=== PATIENT | male | born 1965 | race African-American/Black ===

== ENCOUNTER 2016-11-07 21:26 | Inpatient (IN) ==
--- NOTE | 2016-11-07 23:30 | Emergency Department Note ---
Disposition Clinical Impression: Internal jugular (IJ) vein thromboembolism, acute Qualifiers: Laterality: right Qualified Code(s): I82.C11 - Acute embolism and thrombosis of right internal jugular vein Disposition: Admitted As Inpatient Condition: Fair Referrals: Ivana Weston CNP [Primary Care Provider] - Forms: Work/School Release, ED Satisfaction Letter General Adult HPI - General Chief complaint: ED General Medical Stated complaint: problem with port Time Seen by Provider: 11/07/16 22:49 Source: patient Limitations: no limitations Nursing Notes Reviewed: Yes Vital Signs Reviewed: Yes - History of Present Illness HPI Narrative: 51-year-old male with lung cancer. He is currently on chemotherapy. He had a port placed on October 08. He has not had an issue with the port until today. He was sitting in his chair and he developed right-sided neck pain. Other medical problems include hypertension,, diabetes. He denies a fever, chest pain , shortness of breath. Radiation: non-radiation Pain Severity: severe Pain Scale: 10 Consistency: constant Improves with: nothing Worsens with: movement Associated symptoms: Reports: denies other symptoms Treatments Prior to Arrival: none - Related Data Home Medications Medication Instructions Recorded Confirmed Amlodipine [Norvasc] 5 mg PO DAILY 09/17/16 09/23/16 FLUoxetine HCl [PROzac] 40 mg PO DAILY 09/17/16 11/06/16 Previous Rx's Medication Instructions Recorded Tramadol HCl [Ultram] 50 mg PO TID PRN #12 tab 09/20/16 Dexamethasone [Decadron] 4 mg PO AD #30 tab 09/23/16 Lidocaine/Prilocaine CREAM [Emla] 5 gm TP AD #1 tube 09/23/16 Loratadine [Claritin] 10 mg PO AD #30 capsule 09/23/16 Magic Mouthwash 10 ml PO TID PRN #260 ml 09/23/16 Omeprazole [PriLOSEC] 20 mg PO DAILY #90 capsule 09/23/16 Ondansetron [Zofran] 8 mg PO Q8HR PRN #90 tablet 09/23/16 Prochlorperazine Maleate 10 mg PO Q6HR PRN #90 tablet 09/23/16 [Compazine] HYDROcodone/Acet 10/325 mg [[place] 1 tab PO Q6HR PRN #48 tab 10/09/16 10-325 mg] Varenicline Tartrate [Chantix] 1 each PO AD #60 tab.ds.pk 10/16/16 Folic Acid 1 mg PO DAILY #90 tablet 10/17/16 LORazepam [Ativan] 1 mg PO Q6H PRN #60 tablet 10/28/16 Megestrol Acetate [Megace] 10 ml PO DAILY #300 mls 11/06/16 Allergies Allergy/AdvReac Type Severity Reaction Status Date / Time benazepril Allergy Swelling Verified 09/23/16 17:32 of Lip/Tongue/Throat meloxicam Allergy Swelling Verified 09/23/16 17:32 of Lip/Tongue/Throat All systems ED: reviewed and negative except as stated. Constitutional: Denies: fever Eyes: Denies: vision change ENT ED: Reports: throat pain Cardiovascular: Denies: chest pain Respiratory: Denies: cough Gastrointestinal: Denies: abdominal pain, nausea, vomiting Genitourinary: Denies: dysuria Musculoskeletal: Denies: back pain Integumentary: Denies: rash Neurological: Denies: headache Past Medical History - Past Medical History Medical history: Reports: cancer, hypertension, other Surgical history: Reports: other Psychiatric history: Reports: no psych history - Social History Smoking Status: Current every day smoker Smokeless Tobacco Status: No Alcohol use: Reports: occasionally Drug use: Reports: none Physical Exam - General Limitations: no limitations General appearance: alert, in no apparent distress - Head Head exam: atraumatic - Eye Eye exam: Present: normal appearance, PERRL, EOMI - ENT ENT exam: normal exam - Neck Neck exam: Present: other (pain on palpation of the catheter from the port. No erythema or edema.) - Respiratory Respiratory exam: Present: normal lung sounds bilaterally. Absent: respiratory distress - Cardiovascular Cardiovascular exam: Present: regular rate, normal rhythm - Abdominal Exam Abdominal exam: Present: soft, Non-Tender - Extremities Exam Extremities exam: Present: normal inspection - Neurological Exam Neurological exam: Present: alert, oriented X3 - Psychiatric Psychiatric exam: Present: normal affect, normal mood - Skin Skin exam: Present: warm, dry Course Course Narrative: He has pain on palpation of the port. There is no signs of cellulitis or infection on the surface. Will obtain a CTA of the neck and get basic lab work and blood cultures.. - Reevaluation(s) Reevaluation #1: Acute thrombophlebitis of IJV on the right. STarting heparin and calling for admission. Reevaluation #2: accepted by shreya Vital Signs Temperature 97.3 F L 11/07/16 21:40 Pulse Rate 93 11/07/16 21:40 Respiratory Rate 18 11/07/16 21:40 Blood Pressure 101/61 11/07/16 21:40 O2 Sat by Pulse Oximetry 95 11/07/16 21:40 Temperature 97.3 F L 11/07/16 21:40 Pulse Rate 91 11/08/16 00:50 Respiratory Rate 18 11/08/16 00:50 Blood Pressure 153/86 11/08/16 00:50 O2 Sat by Pulse Oximetry 93 L 11/08/16 00:50 Oxygen Delivery Oxygen Delivery Room Air Medical Decision Making - Lab Data Lab results reviewed: Yes I reviewed the patient's lab results. Result diagrams: 11/07/16 23:32 11/07/16 23:32 Lab Results 11/07/16 11/07/16 11/07/16 Range/Units 23:32 23:32 23:32 WBC 7.5 (4.3-11.1) K/mcL RBC 4.12 L (4.19-5.50) M/mcL Hgb 11.5 L (12.9-16.9) g/dL Hct 31.7 L (37.5-50.1) % MCV 76.9 L (83.0-100.0) fL MCH 27.9 L (28.0-33.3) pg MCHC 36.3 H (31.6-35.5) g/dL RDW 15.6 H (11.5-14.5) % Plt Count 239 (140-400) K/mcL MPV 10.1 (9.4-12.4) fL Immature Gran % 0.5 (0-4) % Seg Neutrophils % 65.5 % Lymphocytes % 18.6 % Monocytes % 11.8 % Eosinophils % 3.2 % Basophils % 0.4 % Neutrophils # 4.9 (1.6-8.9) K/mcL Lymphocytes # 1.4 (0.6-4.6) K/mcL Monocytes # 0.9 (0.0-1.3) K/mcL Eosinophils # 0.2 (0.0-0.6) K/mcL Basophils # 0.0 (0.0-0.2) K/mcL PT 12.2 H (9.4-12.1) Seconds INR 1.1 APTT 27.6 (26.0-36.0) Seconds Sodium 140 (136-145) mEq/L Potassium 3.6 (3.5-4.5) mEq/L Chloride 108 (98-109) mEq/L Carbon Dioxide 20 (19-29) mEq/L BUN 13 (8-26) mg/dL Creatinine 0.65 L (0.72-1.25) mg/dL Est GFR ( Amer) > 60 (> 60) Est GFR (Non-Af Amer) > 60 (> 60) BUN/Creatinine Ratio 20 (6-26) Glucose 110 H (70-99) mg/dL Calculated Osmolality 291 (280-300) Calcium 8.4 L (8.6-10.8) mg/dL - Radiology Data Radiology results reviewed: Yes I reviewed the patient's radiology results. Critical Care Time Critical Care Time: Yes Total Critical Care Time: 40 Attestation: Critical care performed: Time is exclusive of separately billable procedures. Time includes: direct patient care, patient reassessment, coordination of patient care, interpretation of data (laboratory data, radiology data, and respiratory data), review of patient's medical records, medical consultation and documentation of patient care. Procedures included in critical care time: Procedures excluded from critical care time: Attestation Statement - Attestation Attestation: I, Eugene Walker MD, personally performed a history and physical exam of the patient and discussed their management with the resident. I reviewed the resident's note and agree with the documented findings, medical decision making , and plan of care. Patient is a 51-year-old male with a history of lung cancer who had an Infuse-a- Port placed in the right internal jugular vein about one month ago. He had chemotherapy through the port to half weeks ago. He has had no problems until yesterday when he developed pain and soreness over the right side of the neck with some redness and mild swelling. No cough or chest pain or increased shortness of breath. No fever. On examination patient is a well-developed well-nourished male in no acute distress. He is alert and oriented 3. There is no cyanosis or diaphoresis. Breath sounds are clear and equal bilaterally. Heart regular rate and rhythm. There is tenderness to palpation over the right anterior neck with some mild erythema and minimal swelling. Labs reviewed. Soft tissue CT of the neck with contrast shows acute thrombophlebitis of the right internal jugular vein. Heparin initiated. The hospitalist, Dr. Ghosh, was consulted and accepted admission of the patient.
[2016-11-07 23:42] LABS: Basophils % 0.4 %; Eosinophils # 0.2 K/mcL (0.0-0.6); Eosinophils % 3.2 %; Hematocrit 31.7 % (37.5-50.1); Hemoglobin 11.5 g/dL (12.9-16.9); Immature Granulocytes % 0.5 % (0-4); Lymphocytes # 1.4 K/mcL (0.6-4.6); Lymphocytes % 18.6 %; Mean Corpuscular HGB Conc 36.3 g/dL (31.6-35.5); Mean Corpuscular Hemoglobin 27.9 pg (28.0-33.3); Mean Corpuscular Volume 76.9 fL (83.0-100.0); Mean Platelet Volume 10.1 fL (9.4-12.4); Monocytes # 0.9 K/mcL (0.0-1.3); Monocytes % 11.8 %; Neutrophils # 4.9 K/mcL (1.6-8.9); Platelet Count 239 K/mcL (140-400); Red Blood Count 4.12 M/mcL (4.19-5.50); Red Cell Distribution Width 15.6 % (11.5-14.5); Segmented Neutrophils % 65.5 %
[2016-11-07 23:50] LABS: INR 1.1; Prothrombin Time 12.2 Seconds (9.4-12.1)
[2016-11-07 23:52] LABS: Activated Partial Thrombo Time 27.6 Seconds (26.0-36.0)
[2016-11-07 23:59] LABS: BUN/Creatinine Ratio 20 (6-26); Blood Urea Nitrogen 13 mg/dL (8-26); Calcium 8.4 mg/dL (8.6-10.8); Carbon Dioxide 20 mEq/L (19-29); Chloride 108 mEq/L (98-109); Glucose 110 mg/dL (70-99); Osmolality,Calculated 291 (280-300); Potassium 3.6 mEq/L (3.5-4.5); Sodium 140 mEq/L (136-145); eGFR For African Americans > 60 (> 60); eGFR For Non-African Americans > 60 (> 60)
[2016-11-08] MEDS ORDERED: *HR* Heparin 5,000 UNIT/ML VIAL IVP ONE (01:22)
[2016-11-08] MEDS ORDERED: *HR* Heparin 5,000 UNIT/ML VIAL IVP PRN (01:22)
[2016-11-08] MEDS ORDERED: Naloxone 0.4 MG/ML INJ IVP PRN (01:47)
[2016-11-08] MEDS ORDERED: Acetaminophen 325 MG TABLET PO PRN (01:47)
[2016-11-08] MEDS ORDERED: *HR* Promethazine 25 MG/ML VIAL IVP PRN (01:47)
[2016-11-08] MEDS ORDERED: *HR* HYDROmorphone (PF) 1 MG/ML SYRINGE IVP PRN (01:47)
[2016-11-08] MEDS: Heparin 25,000 UNIT/500 ML D5W 25,000 UNIT/500 ML MLS IVC SCH (01:51)
[2016-11-08] MEDS ORDERED: *HR* LORazepam 1 MG TABLET PO PRN ×2 (01:54→14:20)
[2016-11-08 02:28] LABS: VBG HCO3 26.5 mEq/L (21-27); VBG PH 7.43 pH Units (7.32-7.42)
[2016-11-08 02:31] LABS: Ionized Calcium 1.16 mmol/L (1.15-1.35)
[2016-11-08 02:36] LABS: Magnesium 1.8 mg/dL (1.6-2.6); Phosphorous 3.7 mg/dL (2.3-4.7)
[2016-11-08 02:40] LABS: Albumin 3.3 g/dL (3.5-5.0); Albumin/Globulin Ratio 1.1 (1.1-2.2); Bilirubin,Direct 0.1 mg/dL (0.0-0.5); Bilirubin,Indirect 0.3 mg/dL (0.0-1.2); Bilirubin,Total 0.4 mg/dL (0.2-1.2); Chol/HDL Ratio 4.3 (0-4.9); Globulin 2.9 g/dL (2.4-3.5); Total Protein 6.2 g/dL (6.0-8.3)
--- NOTE | 2016-11-08 02:42 | Internal Med History&Physical ---
Date of Encounter: 11/08/16 Time of Encounter: 02:00 Assessment and Plan (1) Internal jugular (IJ) vein thromboembolism, acute Current visit: Yes Status: Acute . Qualifiers: Laterality: right Qualified Code(s): I82.C11 - Acute embolism and thrombosis of right internal jugular vein (2) Adenocarcinoma of lung Current visit: Yes Status: Chronic . Qualifiers: Laterality: left Qualified Code(s): C34.92 - Malignant neoplasm of unspecified part of left bronchus or lung (3) Malignant pleural effusion Current visit: Yes Status: Chronic . (4) Acute chest wall pain Current visit: Yes Status: Acute . (5) Chest pain, rule out acute myocardial infarction Current visit: Yes Status: Acute . (6) Chest pain with low risk of acute coronary syndrome Current visit: Yes Status: Acute . (7) Acute neck pain Current visit: Yes Status: Acute . (8) Nicotine dependence with nicotine-induced disorder Current visit: Yes Status: Chronic . Qualifiers: Nicotine product type: cigarettes Qualified Code(s): F17.219 - Nicotine dependence, cigarettes, with unspecified nicotine-induced disorders (9) Hypertension Current visit: Yes Status: Chronic . Qualifiers: Hypertension type: essential hypertension Qualified Code(s): I10 - Essential (primary) hypertension (10) Coagulopathy Current visit: Yes Status: Acute . (11) COPD (chronic obstructive pulmonary disease) with emphysema Current visit: Yes Status: Chronic . Qualifiers: Emphysema type: unspecified Qualified Code(s): J43.9 - Emphysema, unspecified (12) Acute and chronic respiratory failure with hypoxia Current visit: Yes Status: Acute . (13) Malignant cachexia Current visit: Yes Status: Chronic . (14) Cancer-related pain Current visit: Yes Status: Chronic . Internal Medicine - H&P: HPI Chief complaint: Acute neck/chest pain Admitted From: Emergency Dept Plans for Post Hospital Care: Home History of present illness: Mr. Moon is a 51 year old male with history significant for metastatic lung adenoCA+ malignant pleural effusion , combined (negative) chemotherapy and biologic therapy, cancer-related pain, cachexia of malignancy, hypertension, osteoarthritis, osteopenia, depression -anxiety, GERD, COPD-emphysema, nicotine dependency/abuse (~45 pk-yrs) The patient was visited and interviewed and examined. The patient is admitted to [facility] via the emergency department when he presents with reports of acute onset of severe right-sided neck and chest pain occurring at rest. Symptoms seemed to relate to placement of internal jugular vein central line port. He is currently on chemotherapy for advanced adenocarcinoma of the lung with malignant pleural effusion. Placement of [id number] only one month prior to this presentation. Patient last received chemotherapy recently. Patient had no trouble with his port to the day prior to presentation when he developed acute neck pain and soreness and soreness over the right side of the neck with associated erythema and edema. He denied any associated cough respiratory there is significant. Denied exertional chest pain. Denied any overt fevers chills or sweats.. Placement of the central line occurred approximately one week prior to this presentation (10/08/16). Symptoms occurred while seated; at rest. Pain when present is rated as severe at 10/10 intensity. Nothing seemed to improve symptoms or complaints when present. Symptoms seem to worsen with movement over repetitive activity. Denied fevers chills sweats nausea vomiting patient denies that chest pain upper or lower respiratory symptoms abdominal pain nausea vomiting dysuria frequency hematuria. Acknowledged results of throat discomfort and right neck and upper chest discomfort is primary concerns. Findings in the ED: Temperature 97.3 pulse 90-93 respirations 18 BP 100-153/60-O2 saturation 93-95% on room air. WBC 7.5 hemoglobin 11.5 hematocrit 31.7. MCV 76.9 MCH 27.9. RDW 15.6. Platelets 239,000. Differential normal. PT 12.2 INR 1.1 PTT 27.6. Metabolic panel normal BUN 13 creatinine 0.65 glucose [address] abdomen/pelvis/chest with contrast including right-sided MediPort with tip projecting into the region of the distal SVC. The sentinel nodes noted. No pericardial effusion. Mild underlying emphysema. No obstructing endobronchial lesions seen. Large nodular density seen peripherally to the left lung base 1.7 x 1.5 cm additional nodules along fissure unchanged measuring 7 mm x 6 mm. Smaller nodular density seen within the inferior lingula. Fluid thickening on the left persists with pronounced. Right adrenal gland normal left adrenal gland normal. No hydronephrosis. Spleen normal. No intrahepatic ductal dilatation OR. Hepatic fluid. Gallbladder normal. No pancreatic calcifications. No peripancreatic fluid. Hypodense nodules within the left kidney too small to characterize. Atherosclerotic calcification within the abdominal aorta with no aneurysm and no retroperitoneal adenopathy. Large bowel normal. Mild wall thickening ascending colon and appendix normal. Spurring seen in the spine benign. CT, soft tissue neck with contrast showed acute thrombophlebitis of the mid and distal right internal jugular vein. Spanning a length of approximately 10 cm with surrounding inflammatory change and edema. A metallic foreign body adjacent to the right maynor- mandible noted. Preliminary impressions suggest acute occlusive thrombophlebitis involving right internal jugular vein in a patient with known associated metastatic lung adenocarcinoma and malignant left pleural effusion. Coagulopathy in cancer presenting as a paraneoplastic process is suspected. Given patient's presenting chief complaint ,clinical findings and comorbidities he is at high risk for further acute clinical decline and morbidity. The treatments will proceed comprehensively. Cumulative laboratory and radiographic data base was reviewed, considered and discussed. Pertinent ancillary medical records including ECW and PCI documentation, when available was reviewed and considered. Given the patient's presenting concerns, past medical history, clinical findings and symptoms, he is admitted at this time will undergo further evaluation and disposition. Orders were written as per the computerized physician order management specialist system.......................................................................... .................... Consultative opinions will be sought as clinical circumstances justify. Initial consultation has been requested vascular surgery. Pain management needs will be addressed. Laboratory and radiographic data base will be updated as appropriate. Studies include: Cultures of blood, coagulation profile, d-dimer, cardiac injury panel, BNP, metabolic and hematologic panel, magnesium, phosphorus, ionized calcium, thyroid panel, lipid profile, A1,c, C-peptide, CRP, sedimentation rate, blood gas, lactic acid, U/A, serologies, etc. Precautions: Aspiration, fall, delirium protocol/surveillance initiated. Telemetry with continuous hemodynamic monitoring and pulse oximetry initiated. Empiric antibody coverage: Intravenous Rocephin and Vancomycin pending culture data. Special studies: CT chest/abdoden/pelvis w/contrast, chest x-ray, telemetry, EKG. Pulmonary toilet: Incentive spirometry, aerosol bronchodilator, mucolytic, antitussive, supplemental oxygen. Corticosteroid therapy. CPAP/BiPAP supplemental oxygen delivery therapy. Aerosol Mucomyst therapy. Fluid and electrolyte repletion efforts will proceed. Careful attention to fluid balance and renal recovery will be emphasized. Avoidance of nephrotoxic exposure and adverse drug drug interaction in the setting of impaired renal function will be monitored closely. Correction of metabolic and acid-base deficits will be emphasized. Acute coronary syndrome protocol/surveillance initiated. Intravenous heparin drip therapy initiated. DVT and PUD prophylaxis initiated: PPI therapy, intermittent pneumatic cuffs. Early ambulation will be encouraged. Immunization updates recommended. Influenza and pneumococcal vaccinations as part of ongoing preventative healthcare recommendations strongly recommended. Smoking cessation counseling briefly addressed. Patient declares himself a former(heavy) nonsmoker. Advanced care directive discussion briefly addressed. Patient does not declare any healthcare restrictions at this time. Cardiovascular risk appraisal and cardiovascular risk reduction efforts will be emphasized. Physical and occupational therapy may be consulted to assess patient's functional capacity and progress mobility as circumstances permit. Outpatient medication schedules will be reviewed, confirmed and facilitated as appropriate. Reconciliation of home treatments including adjustment, substitutions and reintroduction into the treatment regimen will address necessary maintenance therapies for chronic pre-existing medical conditions. Plan of care has been reviewed and discussed in detail with the patient. Questions addressed. Hospital course will depend upon collective clinical findings, treatment response and potential consultative interventions. Patient is at risk for further acute clinical decline and morbidity due to his chief complaints and comorbid conditions. Condition is serious. Prognosis is guarded. CODE STATUS is full. Past Med Surg Social Fam HX - Past Medical History Source: old records reviewed Medical history: aortic aneurysm, arthritis, cancer, GERD, hyperlipidemia, hypertension, malignancy, osteoporosis, peripheral artery disease, other Psychiatric history: anxiety, depression, other - Past Surgical History Surgical History: other - Social History Smoking Status: Current every day smoker Packs per day: 1.5 ppd (x31yrs) Smokeless Tobacco Status: No Alcohol use: occasionally (6-12pk per week) Drug use: none Occupational status: employed (nutrition worker) Current living situation: Home - Independent, With Family Activity Level: Independent ambulation, Mostly sedentary Recent Out of Country Travel Within the Last 8 Weeks: No Exposure or Possible Exposure to Illness During Travel: No - Family History Mother Living Status: Still Living Hx Family Cardiac Disorders: Yes (HTN) Hx Family GI Disorders: Yes (Diverticulitis) Hx Family Endocrine Disorder: Yes (Diabetes) Father Living Status: Still Living Hx Family Cardiac Disorders: Yes (HTN, MA with stents) Brother Living Status: Hx Family Cancer: Yes (Lung) Internal Medicine - H&P: Meds Amlodipine [Norvasc] 5 mg PO DAILY 09/17/16 [History] FLUoxetine HCl [PROzac] 40 mg PO DAILY 09/17/16 [History] Tramadol HCl [Ultram] 50 mg PO TID PRN #12 tab 09/20/16 [Rx] Dexamethasone [Decadron] 4 mg PO AD #30 tab 09/23/16 [Rx] Lidocaine/Prilocaine CREAM [Emla] 5 gm TP AD #1 tube 09/23/16 [Rx] Loratadine [Claritin] 10 mg PO AD #30 capsule 09/23/16 [Rx] Magic Mouthwash 10 ml PO TID PRN #260 ml 09/23/16 [Rx] Omeprazole [PriLOSEC] 20 mg PO DAILY #90 capsule 09/23/16 [Rx] Ondansetron [Zofran] 8 mg PO Q8HR PRN #90 tablet 09/23/16 [Rx] Prochlorperazine Maleate [Compazine] 10 mg PO Q6HR PRN #90 tablet 09/23/16 [Rx] HYDROcodone/Acet 10/325 mg [[place] 10-325 mg] 1 tab PO Q6HR PRN #48 tab 10/09/16 [Rx] Varenicline Tartrate [Chantix] 1 each PO AD #60 tab.ds.pk 10/16/16 [Rx] Folic Acid 1 mg PO DAILY #90 tablet 10/17/16 [Rx] LORazepam [Ativan] 1 mg PO Q6H PRN #60 tablet 10/28/16 [Rx] Megestrol Acetate [Megace] 10 ml PO DAILY #300 mls 11/06/16 [Rx] Allergies benazepril Allergy (Verified 09/23/16 17:32) Swelling of Lip/Tongue/Throat meloxicam Allergy (Verified 09/23/16 17:32) Swelling of Lip/Tongue/Throat All Systems PM: A 10-system review of systems was performed and is negative for pertinent findings except as documented above in the HPI. - Constitutional Constitutional: as per HPI, malaise, no chills, no fever(s), no night sweats - EENT Eyes: as per HPI, no change in vision, no discharge, no pain, no photophobia Ears: as per HPI, no ear discharge, no ear pain, no tinnitus Nose, mouth and throat: as per HPI, neck pain, other, no dysphagia, no nasal discharge, no sore throat - Cardiovascular Cardiovascular ROS IM: as per HPI, chest pain, no diaphoresis, no dyspnea, no lightheadedness, no palpitations, no syncope - Respiratory Respiratory: as per HPI, no cough, no dyspnea, no wheezing, no excessive phlegm production - Gastrointestinal Gastrointestinal: as per HPI, no abdominal pain, no diarrhea, no hematemesis, no hematochezia, no melena, no nausea, no vomiting - Genitourinary Genitourinary ROS male: as per HPI, no difficulty urinating, no dysuria, no hematuria - Musculoskeletal Musculoskeletal ROS IM: as per HPI, myalgias, neck pain, no numbness, no tingling - Integumentary Integumentary IM: as per HPI, other, no rash, no unusual bruising - Neurological Neurological ROS: as per HPI, no confusion, no convulsions, no focal weakness, no numbness, no tingling, no tremor(s) - Psychiatric Psychiatric: as per HPI - Endocrine Endocrine IM: as per HPI - Hematologic/Lymphatic Hematologic/Lymphatic: as per HPI, no easy bruising - Allergic/Immunologic Allergic/Immunologic: as per HPI - Constitutional Vitals: Temp Pulse Resp BP Pulse Ox 97.3 F L 91 18 153/86 93 L 11/07/16 21:40 11/08/16 00:50 11/08/16 00:50 11/08/16 00:50 11/08/16 00:50 General appearance: Present: cachectic, cooperative, mild distress, A&O X 3, answers questions appropriately - Head Head exam: Present: atraumatic, normocephalic - Eye Eye exam: Present: EOMI, PERRL, conjuntiva pink, sclera anicteric Pupils: Present: normal accommodation, PERRL - ENT ENT exam: Present: mucous membranes moist, normal external ear exam, normal oropharynx - Neck Neck exam general surgery: Present: full ROM, tenderness, supple, trachea midline. Absent: lymphadenopathy, nuchal rigidity - Expanded Neck Exam Neck exam: Present: tenderness. Absent: anterior neck swelling, carotid bruit, midline deformity, tracheal deviation - Respiratory Respiratory exam: Present: decreased breath sounds, CTAB. Absent: accessory muscle use, rales, rhonchi, wheezes - Cardiovascular Cardiovascular exam: Present: distant heart sounds, RRR, +S1, +S2. Absent: diastolic murmur, gallop, rubs, systolic murmur - GI/Abdominal GI/Abdominal exam: Present: diminished bowel sounds, soft, no peritoneal signs. Absent: distended, tenderness - Extremities Exam Extremities exam: Present: full ROM, warm, radial pulses palpable and symetrical. Absent: calf tenderness, cyanotic, pedal edema - Neurological Exam Neurological exam: Present: alert, CN II-XII intact, oriented X3, no focal deficits. Absent: pronater drift, facial droop, speech deficit - Psychiatric Psychiatric exam: Present: normal affect, normal mood - Skin Skin exam: Present: dry, intact, warm. Absent: petechiae, rash, urticaria, vesicles Internal Med - H&P Results - Labs CBC & Chem 7: 11/07/16 23:32 11/07/16 23:32 - Impressions Vital Signs Temp Pulse Resp BP Pulse Ox 11/08/16 00:50 91 18 153/86 93 L 11/07/16 21:40 97.3 F L 93 18 101/61 95 Intake and Output 11/07/16 11/07/16 11/08/16 15:59 23:59 07:59 Other: Weight 70.942 kg Short CBC 11/07/16 Range/Units 23:32 WBC 7.5 (4.3-11.1) K/mcL Hgb 11.5 L (12.9-16.9) g/dL Hct 31.7 L (37.5-50.1) % Plt Count 239 (140-400) K/mcL Neutrophils # 4.9 (1.6-8.9) K/mcL BMP 11/07/16 Range/Units 23:32 Sodium 140 (136-145) mEq/L Potassium 3.6 (3.5-4.5) mEq/L Chloride 108 (98-109) mEq/L Carbon Dioxide 20 (19-29) mEq/L BUN 13 (8-26) mg/dL Creatinine 0.65 L (0.72-1.25) mg/dL Glucose 110 H (70-99) mg/dL Calcium 8.4 L (8.6-10.8) mg/dL Abnormal lab results RBC 4.12 M/mcL (4.19-5.50) L 11/07/16 23:32 Hgb 11.5 g/dL (12.9-16.9) L 11/07/16 23:32 Hct 31.7 % (37.5-50.1) L 11/07/16 23:32 MCV 76.9 fL (83.0-100.0) L 11/07/16 23:32 MCH 27.9 pg (28.0-33.3) L 11/07/16 23:32 MCHC 36.3 g/dL (31.6-35.5) H 11/07/16 23:32 RDW 15.6 % (11.5-14.5) H 11/07/16 23:32 PT 12.2 Seconds (9.4-12.1) H 11/07/16 23:32 Creatinine 0.65 mg/dL (0.72-1.25) L 11/07/16 23:32 Glucose 110 mg/dL (70-99) H 11/07/16 23:32 Calcium 8.4 mg/dL (8.6-10.8) L 11/07/16 23:32 Allergies Allergy/AdvReac Type Severity Reaction Status Date / Time benazepril Allergy Swelling Verified 09/23/16 17:32 of Lip/Tongue/Throat meloxicam Allergy Swelling Verified 09/23/16 17:32 of Lip/Tongue/Throat Laboratory Results WBC 7.5 K/mcL (4.3-11.1) 11/07/16 23:32 RBC 4.12 M/mcL (4.19-5.50) L 11/07/16 23:32 Hgb 11.5 g/dL (12.9-16.9) L 11/07/16 23:32 Hct 31.7 % (37.5-50.1) L 11/07/16 23:32 MCV 76.9 fL (83.0-100.0) L 11/07/16 23:32 MCH 27.9 pg (28.0-33.3) L 11/07/16 23:32 MCHC 36.3 g/dL (31.6-35.5) H 11/07/16 23:32 RDW 15.6 % (11.5-14.5) H 11/07/16 23:32 Plt Count 239 K/mcL (140-400) 11/07/16 23: MPV 10.1 fL (9.4-12.4) 11/07/16 23:32 Immature Gran % 0.5 % (0-4) 11/07/16 23: Seg Neutrophils % 65.5 % 11/07/16 23:32 Lymphocytes % 18.6 % 11/07/16 23:32 Monocytes % 11.8 % 11/07/16 23: Eosinophils % 3.2 % 11/07/16 23: Basophils % 0.4 % 11/07/16 23:32 Neutrophils # 4.9 K/mcL (1.6-8.9) 11/07/16 23: Lymphocytes # 1.4 K/mcL (0.6-4.6) 11/07/16 23:32 Monocytes # 0.9 K/mcL (0.0-1.3) 11/07/16 23: Eosinophils # 0.2 K/mcL (0.0-0.6) 11/07/16 23:32 Basophils # 0.0 K/mcL (0.0-0.2) 11/07/16 23:32 PT 12.2 Seconds (9.4-12.1) H 11/07/16 23:32 INR 1.1 11/07/16 23:32 APTT 27.6 Seconds (26.0-36.0) 11/07/16 23:32 Sodium 140 mEq/L (136-145) 11/07/16 23:32 Potassium 3.6 mEq/L (3.5-4.5) 11/07/16 23:32 Chloride 108 mEq/L (98-109) 11/07/16 23:32 Carbon Dioxide 20 mEq/L (19-29) 11/07/16 23:32 BUN 13 mg/dL (8-26) 11/07/16 23:32 Creatinine 0.65 mg/dL (0.72-1.25) L 11/07/16 23:32 Est GFR ( Amer) > 60 (> 60) 11/07/16 23:32 Est GFR (Non-Af Amer) > 60 (> 60) 11/07/16 23:32 BUN/Creatinine Ratio 20 (6-26) 11/07/16 23:32 Glucose 110 mg/dL (70-99) H 11/07/16 23:32 Calculated Osmolality 291 (280-300) 11/07/16 23:32 Calcium 8.4 mg/dL (8.6-10.8) L 11/07/16 23:32 Impressions Soft Tissue Neck CT 11/07/16 23:09 IMPRESSION: Acute thrombophlebitis of the mid and distal right IJV. Metallic foreign body adjacent to the right hemimandible. Case discussed emergently with Dr. Taylor at 01:02 a.m. on 11/08/2016. D/ / Mitch Rizvi MD / Mitch Rizvi MD Interpreting Provider: Mitch Rizvi MD
[2016-11-08 02:46] LABS: Activated Partial Thrombo Time 172.1 Seconds (26.0-36.0)
[2016-11-08 02:55] LABS: Heparin anti-factor XA UFH 0.94 IU/mL (0.30-0.70)
[2016-11-08 03:14] LABS: Thyroid Stimulating Hormone 0.417 mcIU/mL (0.350-4.840)
[2016-11-08] MEDS: *HR* OxyCODONE Immed Rel 5 MG TABLET PO PRN ×3 (03:29→17:29)
[2016-11-08] MEDS: 0.9 % Sodium Chloride 1,000 ML IVC SCH ×2 (03:29→22:40)
[2016-11-08 03:51] LABS: Bilirubin,Urine Negative (Negative); Blood,Urine Negative (Negative); Clarity,Urine Clear (Clear); Color,Urine Yellow (Yellow); Glucose,Urine (UA) Normal (Normal); Ketones,Urine Negative (Negative); Leukocyte Esterase,Urine Negative (Negative); Nitrite,Urine Negative (Negative); PH,Urine 5.5 pH Units (5.0-8.0); Protein,Urine Negative (Neg-Trace); Specific Gravity,Urine > 1.030 (1.010-1.025); Urobilinogen,Urine Normal (Normal)
[2016-11-08] MEDS: Megestrol Acetate 400 MG/10 ML UDC PO SCH (08:35)
[2016-11-08] MEDS: Folic Acid 1 MG TABLET PO SCH (08:35)
--- NOTE | 2016-11-08 10:07 | Internal Med Progress Note ---
<Emmett Miller - Last Filed: 11/09/16 10:03> Date of Encounter: 11/09/16 Time of Encounter: 07:00 - Assessment and plan (1) Internal jugular (IJ) vein thromboembolism, acute Current Visit: Yes Status: Acute Assessment and plan: -CT soft tissue of neck shows 10cm thrombus. -Patient complaining of more frequent R sided neck pain. Worse with cough. -Blood culture negative. -Continue Heparin, monitor PTT. Pharmacy to dose. Qualifiers: Laterality: right Qualified Code(s): I82.C11 - Acute embolism and thrombosis of right internal jugular vein (2) Adenocarcinoma of lung Current Visit: Yes Status: Chronic Assessment and plan: -Undergoing Chemotherapy. R sided port placed 1m ago. Dr. Edouard is oncologist. He is aware that patient is admitted. -Patient states that he has been getting all his home meds and is not in pain. -Patient wishes to remain full code. Qualifiers: Laterality: left Qualified Code(s): C34.92 - Malignant neoplasm of unspecified part of left bronchus or lung - Time Spent With Patient 25 - 35 minutes - Subjective Interval history: 51 y/o m being treated for R internal jugular cyndie thromboebolism. Patient is resting comfortably in bed. Today, patient complains of L sided neck pain. The duration of pain has increased, but the dull ache has not changed in quality or intensity. Pain worse with coughing or bearing down. Not tender to the touch. Denies SOB, CP, cough, dizziness, trouble with his vision, weakness, headache. - Constitutional Vitals: Temp Pulse Resp BP Pulse Ox 98.6 F 73 15 110/79 95 11/08/16 06:00 11/08/16 06:00 11/08/16 06:00 11/08/16 06:00 11/08/16 06:00 General appearance: Present: cooperative, A&O X 3, answers questions appropriately - Head Head exam: Present: atraumatic, normal inspection - Neck Neck exam general surgery: Present: normal inspection. Absent: tenderness, nuchal rigidity Additional comments: no erythema, mass or signs of infection. - Expanded Neck Exam Neck exam: Absent: anterior neck swelling, midline deformity, tenderness, tracheal deviation - Respiratory Respiratory exam: Present: decreased breath sounds, CTAB. Absent: accessory muscle use, chest wall tenderness, rhonchi - Cardiovascular Cardiovascular exam: Present: RRR. Absent: diastolic murmur, systolic murmur - GI/Abdominal GI/Abdominal exam: Present: soft, no peritoneal signs. Absent: tenderness - Neurological Exam Neurological exam: Present: alert, oriented X3, no focal deficits. Absent: speech deficit - Psychiatric Psychiatric exam: Present: normal affect, normal mood Internal Medicine: Result - Labs CBC & Chem 7: 11/07/16 23:32 11/09/16 00:39 Labs: Cardiac Enzymes 11/08/16 11/08/16 Range/Units 02:16 08:05 Troponin I 0.00 0.01 (0-0.03) ng/mL Liver Function 11/08/16 Range/Units 02:16 Total Bilirubin 0.4 (0.2-1.2) mg/dL Direct Bilirubin 0.1 (0.0-0.5) mg/dL AST 13 (5-34) Units/L ALT 12 (0-55) Units/L Alkaline Phosphatase 77 (38-126) Units/L Albumin 3.3 L (3.5-5.0) g/dL Urine 11/08/16 Range/Units 03:41 Urine Color Yellow (Yellow) Urine Clarity Clear (Clear) Urine pH 5.5 (5.0-8.0) pH Units Ur Specific [place] > 1.030 H (1.010-1.025) Urine Protein Negative (Neg-Trace) mg/dL Urine Glucose (UA) Normal (Normal) mg/dL - ABG Interpretation ABG results: PT/INR, D-dimer PT 12.2 Seconds (9.4-12.1) H 11/07/16 23:32 D-Dimer 914 ng/mLFEU (0-500) H 11/08/16 02:16 - Diagnostic Studies CT scan - head Status: image reviewed by me (Head and neck soft tissue CT show R sided thrombis ) Consult Discharge Plan - Plan Referrals: Ivana Weston, EAR NOSE THROAT SURGEON [Primary Care Provider] - <Dereje Roe - Last Filed: 11/09/16 14:56> Date of Encounter: 11/08/16 - Constitutional Vitals: Temp Pulse Resp BP Pulse Ox 97.8 F 70 15 123/85 96 11/09/16 11:00 11/09/16 11:00 11/09/16 11:00 11/09/16 11:00 11/09/16 11:00 Internal Medicine: Result - Labs CBC & Chem 7: 11/09/16 10:22 11/09/16 00:39 Labs: Short CBC 11/09/16 Range/Units 10:22 WBC 9.6 (4.3-11.1) K/mcL Hgb 12.4 L (12.9-16.9) g/dL Hct 34.6 L (37.5-50.1) % Plt Count 258 (140-400) K/mcL Neutrophils # 6.4 (1.6-8.9) K/mcL BMP 11/09/16 00:39 Sodium 136 Potassium 3.7 Chloride 104 Carbon Dioxide 25 BUN 10 Creatinine 0.58 L Glucose 104 H Calcium 8.7 - ABG Interpretation ABG results: PT/INR, D-dimer PT 12.2 Seconds (9.4-12.1) H 11/07/16 23:32 D-Dimer 914 ng/mLFEU (0-500) H 11/08/16 02:16 - Attending Attestation I examined this patient and my medical decision-making was reviewed with the Resident Physician. I agree with the documented findings, disposition and treatment plan as described except to the extent set forth below. Pt admitted during the night for acute R IJ thrombus. He is on IV heparin. Pain controlled. Alert and comfortable. Will continue same plan of care.
[2016-11-08] MEDS: *HR* Heparin 5,000 UNIT/ML VIAL IVP PRN (19:03)
[2016-11-09] MEDS: *HR* OxyCODONE Immed Rel 5 MG TABLET PO PRN ×3 (00:11→20:44)
[2016-11-09 00:58] LABS: BUN/Creatinine Ratio 17 (6-26); Blood Urea Nitrogen 10 mg/dL (8-26); Calcium 8.7 mg/dL (8.6-10.8); Carbon Dioxide 25 mEq/L (19-29); Chloride 104 mEq/L (98-109); Glucose 104 mg/dL (70-99); Magnesium 1.8 mg/dL (1.6-2.6); Osmolality,Calculated 281 (280-300); Potassium 3.7 mEq/L (3.5-4.5); Sodium 136 mEq/L (136-145); eGFR For African Americans > 60 (> 60); eGFR For Non-African Americans > 60 (> 60)
[2016-11-09] MEDS: *HR* Heparin 5,000 UNIT/ML VIAL IVP PRN ×3 (01:18→20:56)
[2016-11-09] MEDS: Heparin 25,000 UNIT/500 ML D5W 25,000 UNIT/500 ML MLS IVC SCH ×2 (03:48→21:05)
[2016-11-09] MEDS: FLUoxetine 20 MG CAPSULE PO SCH (08:32)
[2016-11-09] MEDS: amLODIPine 5 MG TABLET PO SCH (08:32)
[2016-11-09] MEDS: Folic Acid 1 MG TABLET PO SCH (08:32)
[2016-11-09] MEDS: Megestrol Acetate 400 MG/10 ML UDC PO SCH (08:32)
[2016-11-09 10:31] LABS: Basophils % 0.4 %; Eosinophils # 0.1 K/mcL (0.0-0.6); Eosinophils % 1.4 %; Hematocrit 34.6 % (37.5-50.1); Hemoglobin 12.4 g/dL (12.9-16.9); Immature Granulocytes % 0.4 % (0-4); Lymphocytes # 1.5 K/mcL (0.6-4.6); Lymphocytes % 15.3 %; Mean Corpuscular HGB Conc 35.8 g/dL (31.6-35.5); Mean Corpuscular Hemoglobin 27.6 pg (28.0-33.3); Mean Corpuscular Volume 77.1 fL (83.0-100.0); Mean Platelet Volume 10.4 fL (9.4-12.4); Monocytes # 1.5 K/mcL (0.0-1.3); Monocytes % 15.8 %; Neutrophils # 6.4 K/mcL (1.6-8.9); Platelet Count 258 K/mcL (140-400); Red Blood Count 4.49 M/mcL (4.19-5.50); Red Cell Distribution Width 15.5 % (11.5-14.5); Segmented Neutrophils % 66.7 %
--- NOTE | 2016-11-09 18:16 | Internal Med Progress Note ---
Date of Encounter: 11/09/16 Time of Encounter: 12:00 - Assessment and plan (1) Internal jugular (IJ) vein thromboembolism, acute Current Visit: Yes Status: Acute Assessment and plan: -Pain still present but improved from yesterday. Continue IV heparin. Will contact heme onc tomorrow with regards to oral medication and plan for port. Qualifiers: Laterality: right Qualified Code(s): I82.C11 - Acute embolism and thrombosis of right internal jugular vein (2) Acute and chronic respiratory failure with hypoxia Current Visit: Yes Status: Acute (3) Malignant pleural effusion Current Visit: Yes Status: Chronic Assessment and plan: Monitor (4) Adenocarcinoma of lung Current Visit: Yes Status: Chronic Assessment and plan: -Will contact heme onc tomorrow with regards to any further plans at this time. Qualifiers: Laterality: left Qualified Code(s): C34.92 - Malignant neoplasm of unspecified part of left bronchus or lung (5) COPD (chronic obstructive pulmonary disease) with emphysema Current Visit: Yes Status: Chronic Assessment and plan: Supportive care for now. Qualifiers: Emphysema type: panlobular Qualified Code(s): J43.1 - Panlobular emphysema (6) Chest pain Current Visit: No Status: Acute Assessment and plan: Pain is controlled at this time. Qualifiers: Chest pain type: chest pain on breathing Qualified Code(s): R07.1 - Chest pain on breathing (7) Nicotine dependence with nicotine-induced disorder Current Visit: Yes Status: Chronic Assessment and plan: Cessation counselling. Qualifiers: Nicotine product type: cigarettes Qualified Code(s): F17.219 - Nicotine dependence, cigarettes, with unspecified nicotine-induced disorders - Subjective Interval history: Mr. Moon is currently admitted for acute thrombus of R IJ vein. He remains high risk due to potential of complications from his clot. Mr. Moon has some discomfort in his R neck. No CP or SOB worse than baseline. No GI symptoms. No parasthesias in R arm. He has been sleeping OK and eating OK since admit and has had no issues with the heparin drip. - Constitutional Vitals: Temp Pulse Resp BP Pulse Ox 97.8 F 77 15 109/75 96 11/09/16 15:00 11/09/16 15:00 11/09/16 15:00 11/09/16 15:00 11/09/16 15:00 General appearance: Present: cooperative, A&O X 3, answers questions appropriately - Head Head exam: Present: normocephalic - Eye Eye exam: Present: conjuntiva pink - ENT ENT exam: Present: mucous membranes moist - Neck Additional comments: Tender over R neck. - Respiratory Respiratory exam: Present: decreased breath sounds, CTAB - Cardiovascular Cardiovascular exam: Present: RRR. Absent: tachycardia - GI/Abdominal GI/Abdominal exam: Present: soft. Absent: mass, tenderness - Extremities Exam Extremities exam: Present: warm. Absent: pedal edema Additional comments: Clubbing present. - Neurological Exam Neurological exam: Present: alert, oriented X3, no focal deficits - Psychiatric Psychiatric exam: Present: normal affect, normal mood - Skin Skin exam: Present: dry, warm. Absent: rash Internal Medicine: Result - Labs CBC & Chem 7: 11/09/16 10:22 11/09/16 00:39 Labs: Short CBC 11/09/16 Range/Units 10:22 WBC 9.6 (4.3-11.1) K/mcL Hgb 12.4 L (12.9-16.9) g/dL Hct 34.6 L (37.5-50.1) % Plt Count 258 (140-400) K/mcL Neutrophils # 6.4 (1.6-8.9) K/mcL BMP 11/09/16 00:39 Sodium 136 Potassium 3.7 Chloride 104 Carbon Dioxide 25 BUN 10 Creatinine 0.58 L Glucose 104 H Calcium 8.7 - ABG Interpretation ABG results: PT/INR, D-dimer PT 12.2 Seconds (9.4-12.1) H 11/07/16 23:32 D-Dimer 914 ng/mLFEU (0-500) H 11/08/16 02:16 - VTE Documentation of Mechanical Device: Intermittent pneumatic compression device Consult Discharge Plan - Plan Referrals: Ivana Weston, CHIEF LIFESTYLE OFFICER [Primary Care Provider] -
[2016-11-10 03:47] LABS: BUN/Creatinine Ratio 18 (6-26); Blood Urea Nitrogen 11 mg/dL (8-26); Calcium 9.2 mg/dL (8.6-10.8); Carbon Dioxide 22 mEq/L (19-29); Chloride 105 mEq/L (98-109); Glucose 106 mg/dL (70-99); Osmolality,Calculated 282 (280-300); Potassium 4.2 mEq/L (3.5-4.5); Sodium 136 mEq/L (136-145); eGFR For African Americans > 60 (> 60); eGFR For Non-African Americans > 60 (> 60)
[2016-11-10] MEDS: Folic Acid 1 MG TABLET PO SCH (08:52)
[2016-11-10] MEDS: Megestrol Acetate 400 MG/10 ML UDC PO SCH (08:52)
[2016-11-10] MEDS: FLUoxetine 20 MG CAPSULE PO SCH (08:52)
[2016-11-10] MEDS: *HR* OxyCODONE Immed Rel 5 MG TABLET PO PRN ×2 (08:53→15:14)
[2016-11-10] MEDS: amLODIPine 5 MG TABLET PO SCH (08:53)
--- NOTE | 2016-11-10 09:56 | Internal Med Progress Note ---
Date of Encounter: 11/10/16 - Assessment and plan (1) Internal jugular (IJ) vein thromboembolism, acute Current Visit: Yes Status: Acute Qualifiers: Laterality: right Qualified Code(s): I82.C11 - Acute embolism and thrombosis of right internal jugular vein (2) Adenocarcinoma of lung Current Visit: Yes Status: Chronic Qualifiers: Laterality: left Qualified Code(s): C34.92 - Malignant neoplasm of unspecified part of left bronchus or lung - Subjective Interval history: 51 y/o m being treated for R internal jugular cyndie thromboebolism. Patient is resting comfortably in bed. Today, patient complains of L sided neck pain. The duration of pain has increased, but the dull ache has not changed in quality or intensity. Pain worse with coughing or bearing down. Not tender to the touch. Denies SOB, CP, cough, dizziness, trouble with his vision, weakness, headache. - Constitutional Vitals: Temp Pulse Resp BP Pulse Ox 98.3 F 66 16 127/86 97 11/10/16 08:00 11/10/16 08:00 11/10/16 08:00 11/10/16 08:00 11/10/16 08:00 General appearance: Present: cooperative, A&O X 3, answers questions appropriately Internal Medicine: Result - Labs CBC & Chem 7: 11/09/16 10:22 11/10/16 03:26 Labs: Short CBC 11/09/16 Range/Units 10:22 WBC 9.6 (4.3-11.1) K/mcL Hgb 12.4 L (12.9-16.9) g/dL Hct 34.6 L (37.5-50.1) % Plt Count 258 (140-400) K/mcL Neutrophils # 6.4 (1.6-8.9) K/mcL BMP 11/10/16 03:26 Sodium 136 Potassium 4.2 Chloride 105 Carbon Dioxide 22 BUN 11 Creatinine 0.62 L Glucose 106 H Calcium 9.2 - ABG Interpretation ABG results: PT/INR, D-dimer PT 12.2 Seconds (9.4-12.1) H 11/07/16 23:32 D-Dimer 914 ng/mLFEU (0-500) H 11/08/16 02:16 - VTE Documentation of Mechanical Device: Intermittent pneumatic compression device Consult Discharge Plan - Plan Referrals: Weston,Ivana M, CLIENT SERVICES MANAGER [Primary Care Provider] -
[2016-11-10] MEDS: Heparin 25,000 UNIT/500 ML D5W 25,000 UNIT/500 ML MLS IVC SCH ×2 (10:30→12:46)
[2016-11-10] MEDS: 0.9 % Sodium Chloride 1,000 ML IVC SCH ×2 (10:30→15:15)
[2016-11-10 15:21] VITALS: BP 115/77
--- NOTE | 2016-11-10 17:03 | Discharge Summary ---
<Emmett Miller - Last Filed: 11/10/16 16:59> Date of Encounter: 11/10/16 Time of Encounter: 16:59 - Discharge Diagnosis (1) Internal jugular (IJ) vein thromboembolism, acute Priority: Primary Status: Acute Qualifiers: Laterality: right Qualified Code(s): I82.C11 - Acute embolism and thrombosis of right internal jugular vein (2) Adenocarcinoma of lung Priority: Primary Status: Chronic Qualifiers: Laterality: left Qualified Code(s): C34.92 - Malignant neoplasm of unspecified part of left bronchus or lung - Discharge Medications Prescriptions: Enoxaparin [Lovenox] 80 mg SQ Q12HR #60 syr Home Medications: Amlodipine [Norvasc] 5 mg PO DAILY 09/17/16 [History] FLUoxetine HCl [Prozac] 40 mg PO DAILY 09/17/16 [History] Tramadol HCl [Ultram] 50 mg PO TID PRN #12 tab 09/20/16 [Rx] Dexamethasone [Decadron] 4 mg PO AD #30 tab 09/23/16 [Rx] Lidocaine/Prilocaine CREAM [Emla] 5 gm TP AD #1 tube 09/23/16 [Rx] Loratadine [Claritin] 10 mg PO AD #30 capsule 09/23/16 [Rx] Magic Mouthwash 10 ml PO TID PRN #260 ml 09/23/16 [Rx] Omeprazole [PriLOSEC] 20 mg PO DAILY #90 capsule 09/23/16 [Rx] Ondansetron [Zofran] 8 mg PO Q8HR PRN #90 tablet 09/23/16 [Rx] Prochlorperazine Maleate [Compazine] 10 mg PO Q6HR PRN #90 tablet 09/23/16 [Rx] HYDROcodone/Acet 10/325 mg [[place] 10-325 mg] 1 tab PO Q6HR PRN #48 tab 10/09/16 [Rx] Varenicline Tartrate [Chantix] 1 each PO AD #60 tab.ds.pk 10/16/16 [Rx] Folic Acid 1 mg PO DAILY #90 tablet 10/17/16 [Rx] LORazepam [Ativan] 1 mg PO Q6H PRN #60 tablet 10/28/16 [Rx] Megestrol Acetate [Megace] 10 ml PO DAILY #300 mls 11/06/16 [Rx] Enoxaparin [Lovenox] 80 mg SQ Q12HR #60 syr 11/10/16 [Rx] Allergies/Adverse Reactions: Allergies benazepril Allergy (Verified 09/23/16 17:32) Swelling of Lip/Tongue/Throat meloxicam Allergy (Verified 09/23/16 17:32) Swelling of Lip/Tongue/Throat Date of admission: 11/08/16 01:47 Primary care physician: Guy Gibbs - Patient Status Disposition: Home, Self-Care Condition: Fair Functional capacity at discharge: independent ambulation Overall status at discharge: patient is back to baseline - Discharge Instructions Follow Up With: Ivana Weston CNP [Primary Care Provider] - Ezekiel Edouard MD [Partnered Physician] - (Patient admitted for R sided thrombus in IJ. Started on Heparin. Tolerated medication well and asymptomatic. Per atiya Alfaro patient on wt based lovenox BID for 3-6M and follow up with you. ) Additional Instructions: Please followup with PCP and oncologist in the next 5 days. If you have increase headache, weakness, stroke like symptoms, a fall in which you hit your head, confusion, diffuse rash, fever over 100.5 please go to the ED to be evaluated. - Diet and Activity Activity: increase activity as tolerated Diet: advance to your usual diet Interval History: Patient feels well today. Is ambulatory. Denies neck pain. Ready to go home. -Later in the evening, patient stated that his R anterior anterior shoulder started hurting. Began all the sudden. Sharp/stabbing pain that is constant and exacerbated by movement, particularly abduction and arm extension. A couple of hours earlier today, he was playing with his daughter-throwing her up in the air. He denies numbness, tingling, loss of motor function or ROM. after examining the shoulder and speaking with the patient, he does not wish to have an xray at this time. Hospital course: Mr. Moon is a 51 year old male, PMH Lung Cancer and R subclavian port placement 1 m ago, c/c R neck pain. Discovered to have a 10cm thrombus in R IJ. Admitted to the floor and started on a heparin drip. He has tolerated the therapy, denies any neurological symptoms. Feels like he is at baseline and wishes to go home. - Time Spent with Patient Total time spent providing and/or coordinating discharge services: Greater than 30 minutes - Constitutional Vitals: Temp Pulse Resp BP Pulse Ox 97.9 F 74 16 115/77 95 11/10/16 15:20 11/10/16 15:20 11/10/16 15:20 11/10/16 15:20 11/10/16 15:20 General appearance: Present: cooperative, A&O X 3, answers questions appropriately - ENT ENT exam: Present: mucous membranes moist, normal exam - Neck Neck exam general surgery: Present: full ROM, normal inspection, supple, trachea midline. Absent: lymphadenopathy, tenderness, nuchal rigidity, thyromegaly - Expanded Neck Exam Neck exam: Absent: anterior neck swelling, midline deformity - Respiratory Respiratory exam: Present: CTAB - Cardiovascular Cardiovascular exam: Present: RRR. Absent: diastolic murmur, systolic murmur - GI/Abdominal GI/Abdominal exam: Present: normal bowel sounds, soft, no peritoneal signs. Absent: distended, tenderness - Expanded Upper Extremities Exam Shoulder exam: Present: full ROM, normal inspection, tenderness, tenderness over AC joint. Absent: abrasion, crepitus, deformity, dislocation, ecchymosis, erythema, swelling Upper Arm exam: Present: normal inspection. Absent: abrasion, crepitus, deformity, dislocation, ecchymosis, erythema, full ROM, laceration, swelling Neuro motor exam: Present: thumb IP flexion intact, thumb opposition intact, wrist extension intact Neurosensory exam: Present: 2-point discrimination, median nerve intact, radial nerve intact, ulnar nerve intact Vascular exam: Present: brachial pulse, pulse deficit radial art, ulnar pulse. Absent: vascular compromise - Neurological Exam Neurological exam: Present: alert, altered - Psychiatric Psychiatric exam: Present: normal affect, normal mood - Skin Skin exam: Absent: cyanosis, rash, warm - VTE Documentation of Mechanical Device: Intermittent pneumatic compression device <Dereje Roe - Last Filed: 11/10/16 17:54> Date of Encounter: 11/10/16 - Discharge Diagnosis (1) Internal jugular (IJ) vein thromboembolism, acute Status: Acute Qualifiers: Laterality: right Qualified Code(s): I82.C11 - Acute embolism and thrombosis of right internal jugular vein (2) Acute and chronic respiratory failure with hypoxia Status: Acute (3) Malignant pleural effusion Priority: Secondary Status: Chronic (4) Adenocarcinoma of lung Status: Chronic Qualifiers: Laterality: left Qualified Code(s): C34.92 - Malignant neoplasm of unspecified part of left bronchus or lung (5) COPD (chronic obstructive pulmonary disease) with emphysema Priority: Secondary Status: Chronic Qualifiers: Emphysema type: panlobular Qualified Code(s): J43.1 - Panlobular emphysema (6) Chest pain Priority: Secondary Status: Resolved Qualifiers: Chest pain type: chest pain on breathing Qualified Code(s): R07.1 - Chest pain on breathing (7) Nicotine dependence with nicotine-induced disorder Priority: Secondary Status: Chronic Qualifiers: Nicotine product type: cigarettes Qualified Code(s): F17.219 - Nicotine dependence, cigarettes, with unspecified nicotine-induced disorders Date of admission: 11/08/16 01:47 Primary care physician: Guy Gibbs Hospital course: Mr. Moon is a 51 year old male - Time Spent with Patient Total time spent providing and/or coordinating discharge services: 40min - Constitutional Vitals: Temp Pulse Resp BP Pulse Ox 97.9 F 74 16 115/77 95 11/10/16 15:20 11/10/16 15:20 11/10/16 15:20 11/10/16 15:20 11/10/16 15:20 - Attending Attestation I examined this patient and my medical decision-making was reviewed with the Resident Physician on 11/10/16. I agree with the documented findings, disposition and treatment plan as described except to the extent set forth below. Mr. Moon feels OK. No new issues. Tolerating anticoagulant. Exam Alert. Comfortable Heart reg Lungs clear No neck swelling but does have some tenderness over IJ on R. Plan D/C today on subqu Lovenox. Plan for follow up in oncology as arranged next week.
[2016-11-10] MEDS ORDERED: *HR* HYDROcodone/Acet 10/325 mg TABLET PO ONE (17:52)
[2016-11-10] MEDS ORDERED: *HR* Enoxaparin 80 MG/0.8 ML SYRINGE SQ ONE (19:45)
--- NOTE | 2016-11-11 10:34 | Oncology Inp Consult Note ---
Date of Encounter: 11/10/16 Time of Encounter: 16:00 Assessment and Plan (1) Internal jugular (IJ) vein thromboembolism, acute Status: Acute Assessment and plan: Most likely related to the right-sided port. The patient is currently on heparin. I recommend transitioning to Lovenox 1 mg/kg twice a day. Since the port is functioning well, it does not need to be removed. Anticoagulation can continue for a period of 3 months, at the end of which his oncologist will evaluate and see if it can be discontinued. He may also be a good candidate for novel oral anticoagulant, this decision is to be made by his oncologist. Qualifiers: Laterality: right Qualified Code(s): I82.C11 - Acute embolism and thrombosis of right internal jugular vein (2) Adenocarcinoma of lung Status: Chronic Assessment and plan: High PDL-1 expression, ALK positive by IHC. CT chest, abdomen and pelvis at the time of diagnosis in September 2016 showed a 1.7 cm mass in the major fissure in the left lung, and scattered nodules around the mass concerning for satellite nodules. Pleural effusion showed positive cytology for malignant cells. He has finished one cycle of cisplatin and pemetrexed. He has tolerated chemotherapy well. He is due for the second cycle this week. Follow-up with Dr Edouard arranged. Qualifiers: Laterality: left Qualified Code(s): C34.92 - Malignant neoplasm of unspecified part of left bronchus or lung - Data of Consult Patient: known to practice within the last 3 years Consult date: 11/10/16 Requesting Physician: Dereje Roe DO Primary Care Provider: Guy Gibbs - Consult Narrative Reason for consult: Rt IJ thrombus related to port History of present illness: Mr. Moon is a 51 year old male known to our practice, with a diagnosis of metastatic adenocarcinoma of the lung and is currently receiving treatment with cisplatin and Alimta. He has finished 1 cycle and is due for the second cycle this week. He presented to the hospital with a complaint of pain in the right neck, worse with neck movement, chewing and swallowing. A CT of the neck was done and revealed a thrombus in the right IJ measuring about 10 cm with surrounding inflammation. He was started on heparin and we were consulted to further evaluate. The patient reports that since the initiation of heparin, his pain has decreased to about a 5 out of 10. However, he has developed a new right shoulder pain which is limiting movements on that side. He reports that he tolerated the chemotherapy well so far and has an appointment with his oncologist, Dr. Edouard this week. He denied a previous history of blood clots. Past Med Surg Social Fam HX - Past Medical History Medical history: aortic aneurysm, arthritis, cancer, GERD, hyperlipidemia, hypertension, malignancy, osteoporosis, peripheral artery disease, other Psychiatric history: anxiety, depression, other - Past Surgical History Surgical History: other - Social History Smoking Status: Current every day smoker Packs per day: 1.5 ppd (x31yrs) Smokeless Tobacco Status: No Alcohol use: occasionally (6-12pk per week) Drug use: none - Family History Mother Living Status: Still Living Hx Family Cardiac Disorders: Yes (HTN) Hx Family GI Disorders: Yes (Diverticulitis) Hx Family Endocrine Disorder: Yes (Diabetes) Father Living Status: Still Living Hx Family Cardiac Disorders: Yes (HTN, PR with stents) Brother Living Status: Hx Family Cancer: Yes (Lung) Medications and Allergies Amlodipine [Norvasc] 5 mg PO DAILY 09/17/16 [History] FLUoxetine HCl [Prozac] 40 mg PO DAILY 09/17/16 [History] Tramadol HCl [Ultram] 50 mg PO TID PRN #12 tab 09/20/16 [Rx] Dexamethasone [Decadron] 4 mg PO AD #30 tab 09/23/16 [Rx] Lidocaine/Prilocaine CREAM [Emla] 5 gm TP AD #1 tube 09/23/16 [Rx] Loratadine [Claritin] 10 mg PO AD #30 capsule 09/23/16 [Rx] Magic Mouthwash 10 ml PO TID PRN #260 ml 09/23/16 [Rx] Omeprazole [PriLOSEC] 20 mg PO DAILY #90 capsule 09/23/16 [Rx] Ondansetron [Zofran] 8 mg PO Q8HR PRN #90 tablet 09/23/16 [Rx] Prochlorperazine Maleate [Compazine] 10 mg PO Q6HR PRN #90 tablet 09/23/16 [Rx] HYDROcodone/Acet 10/325 mg [[place] 10-325 mg] 1 tab PO Q6HR PRN #48 tab 10/09/16 [Rx] Varenicline Tartrate [Chantix] 1 each PO AD #60 tab.ds.pk 10/16/16 [Rx] Folic Acid 1 mg PO DAILY #90 tablet 10/17/16 [Rx] LORazepam [Ativan] 1 mg PO Q6H PRN #60 tablet 10/28/16 [Rx] Megestrol Acetate [Megace] 10 ml PO DAILY #300 mls 11/06/16 [Rx] Enoxaparin [Lovenox] 80 mg SQ Q12HR #60 syr 11/10/16 [Rx] Allergies benazepril Allergy (Verified 09/23/16 17:32) Swelling of Lip/Tongue/Throat meloxicam Allergy (Verified 09/23/16 17:32) Swelling of Lip/Tongue/Throat Constitutional: Present: fatigue, weakness Cardiovascular: Present: dyspnea Respiratory: Present: dyspnea, pain with cough Gastrointestinal: Present: constipation Oncology - Exam - Constitutional Vitals: Temp Pulse Resp BP Pulse Ox 97.9 F 74 16 115/77 95 11/10/16 15:20 11/10/16 15:20 11/10/16 15:20 11/10/16 15:20 11/10/16 15:20 General appearance: average body habitus, cooperative, no acute distress - Head Head exam: Present: atraumatic - Eye Eye exam: Present: EOMI, PERRL - ENT ENT exam: Present: mucous membranes moist, normal oropharynx - Neck Neck exam: Present: full ROM - Respiratory Respiratory exam: Present: decreased breath sounds - Cardiovascular Cardiovascular exam: Present: RRR, +S1, +S2 - GI/Abdominal GI/Abdominal exam: Present: normal bowel sounds, soft - Neurological Exam Neurological exam: Present: alert, oriented X3, no focal deficits Consult Discharge Plan - Plan Instructions: Deep Venous Thrombosis (DC) Additional Instructions: Please followup with PCP and oncologist in the next 5 days. If you have increase headache, weakness, stroke like symptoms, a fall in which you hit your head, confusion, diffuse rash, fever over 100.5 please go to the ED to be evaluated. Referrals: Ivana Weston CNP [Primary Care Provider] - Ezekiel Edouard MD [Partnered Physician] - 11/12/16 8:30 am (Patient admitted for R sided thrombus in IJ. Started on Heparin. Tolerated medication well and asymptomatic. Per atiya Alfaro patient on wt based lovenox BID for 3-6M and follow up with you. ) Prescriptions: Enoxaparin [Lovenox] 80 mg SQ Q12HR #60 syr
== END 2016-11-10 19:17 | disposition home or self-care (01) | DRG 206 ==
LOC: EMEROO 21:26 → 2NENU 11-08 01:47
PROVIDERS: ADMIT Pediatrics; ATTEND Internal Medicine

== ENCOUNTER 2017-06-22 19:12 | Observation (INO) ==
[2017-06-22] MEDS ORDERED: Ondansetron 4 MG/2 ML VIAL IVP ONE ×2 (19:28→19:46)
--- NOTE | 2017-06-22 19:34 | Emergency Department Note ---
Disposition Clinical Impression: Nonspecific ST-T wave electrocardiographic changes Nausea & vomiting Qualifiers: Vomiting type: unspecified Vomiting Intractability: intractable Qualified Code( s): R11.2 - Nausea with vomiting, unspecified Pancreatitis Qualifiers: Chronicity: acute Pancreatitis type: unspecified pancreatitis type Acute pancreatitis complication: unspecified Qualified Code(s): K85.90 - Acute pancreatitis without necrosis or infection, unspecified Disposition: Admitted As Inpatient Condition: Fair Time of Disposition: 20:54 Chest Pain HPI - General Chief Complaint: ED Chest Pain Stated Complaint: pain in sternum Time Seen by Provider: 06/22/17 19:18 Source: patient Limitations: no limitations - History of Present Illness HPI Narrative: Mr. Moon, a 52yo male, presents from home by POV for evaluation of nausea and vomiting. Patient awoke at 5 AM with nausea and vomiting. Since, he has been able to tolerate any by mouth intake. His been resistant to his home Zofran and Phenergan. He is unable take the remainder of his medications because of this vomiting. Patient notes epigastric pain. He denies any chest pain or sternal pain. Currently on chemotherapy for stage IV pulmonary cancer. Last chemotherapy was Thursday (5 days ago). Hx DVT in UE. ROS: Positive: Nausea, vomiting, epigastric pain Negative: Fever, chills, dyspnea, diaphoresis, back pain, melena, hematochezia, hematemesis, changes in bowel, change in urination. Severity scale (1-10): 10 - Related Data Home Medications Medication Instructions Recorded Confirmed amLODIPine [Norvasc] 5 mg PO DAILY 09/17/16 06/22/17 Folic Acid 1 mg PO DAILY 01/22/17 06/22/17 Lidocaine/Prilocaine CREAM [Emla] 1 gm TP AD 01/22/17 06/22/17 Loratadine [Claritin] 10 mg PO DAILY 01/22/17 06/17/17 Meclizine [Antivert] 12.5 mg PO TID PRN 01/22/17 06/22/17 Megestrol Acetate [Megace] 10 ml PO DAILY PRN 01/22/17 06/22/17 Omeprazole 20 mg PO DAILY 01/22/17 06/22/17 Prochlorperazine Maleate 10 mg PO Q6HR 06/22/17 06/22/17 [Compazine] Sertraline [Zoloft] 50 mg PO DAILY 06/22/17 06/22/17 Previous Rx's Medication Instructions Recorded Dexamethasone [Decadron] 4 mg PO AD #60 tablet 03/20/17 Ondansetron HCl 8 mg PO Q8H PRN #90 tablet 04/16/17 Prochlorperazine Maleate 10 mg PO Q6HR PRN #90 tablet 04/16/17 [Compazine] Varenicline Tartrate [Chantix] 1 mg PO BID #60 tablet 04/16/17 Magic Mouthwash [Magic Mouthwash 10 ml PO TID PRN #240 mls 05/05/17 BLM] Blood Pressure Test Kit-Medium 1 each AD #1 kit 05/20/17 [Blood Pressure Cuff Monitor] Docusate [Colace] 100 mg PO BID PRN #60 capsule 05/20/17 HYDROcodone/Acet 10/325 mg [[place] 1 tab PO Q6HR PRN #90 tablet 06/17/17 10-325 mg] LORazepam [Ativan] 1 mg PO Q6H PRN #60 tablet 06/17/17 OxyCODONE Immed Rel [Roxicodone 5 5 mg PO Q2HR PRN #90 tablet 06/17/17 MG] Rivaroxaban [Xarelto] 20 mg PO DAILY #30 06/17/17 Allergies Allergy/AdvReac Type Severity Reaction Status Date / Time benazepril Allergy Swelling Verified 06/17/17 09:11 of Lip/Tongue/Throat meloxicam Allergy Swelling Verified 06/17/17 09:11 of Lip/Tongue/Throat All systems ED: reviewed and negative except as stated. Chest Pain PMH - Past Medical History Medical history: Reports: aortic aneurysm, arthritis, cancer, GERD, hyperlipidemia, hypertension, malignancy, osteoporosis, peripheral artery disease, other Surgical history: Reports: other Psychiatric history: Reports: anxiety, depression, other - Social History Smoking Status: Current every day smoker Alcohol use: Reports: occasionally Drug use: Reports: none Physical Exam Vital Signs Reviewed General: Patient is alert, oriented, and in no acute distress. HEENT: No facial asymmetry. Head is normocephalic and atraumatic. Oral mucosa moist. Trachea midline. Cardiovascular: Heart regular rate and rhythm without clicks, rubs, gallops, or murmurs. No JVD. PMI nondisplaced. No pedal edema. Respiratory: Symmetric chest rise with good respiratory effort. Bilateral breath sounds are clear without wheezing, crackles, or rhonchi. Abdomen: Bowel sounds present normoactive x-4 quadrants. Abdomen is soft, nondistended. Epigastric tenderness. Psych: Patient's affect is appropriate for situation. - General Limitations: no limitations General appearance: alert, in no apparent distress Course Course Narrative: Patient is well. Only complaint bed. His main concern is nausea and vomiting. Clinically, his epigastric pain is more consistent with retching versus pancreatitis instead of supradiaphragmatic in origin. Even so, will request EKG , chest x-ray. Chest x-ray is unremarkable. Laboratory workup shows elevated lipase. Given patient's critical picture, this is consistent with pancreatitis. Of note, patient's EKG today shows new T-wave inversions in septal leads which are not present on comparative EKG August. Troponin is 0.00. Spoke with the admitting hospitalist, Dr. Casillas, who agrees to accept the patient. Will request telemetry bed. Vital Signs Temperature 98.1 F 06/22/17 19:13 Pulse Rate 98 06/22/17 19:13 Respiratory Rate 20 06/22/17 19:13 Blood Pressure 169/119 06/22/17 19:13 O2 Sat by Pulse Oximetry 97 06/22/17 19:13 Temperature 98.1 F 06/22/17 19:13 Pulse Rate 83 06/22/17 21:21 Respiratory Rate 14 06/22/17 22:03 Blood Pressure 162/105 06/22/17 22:03 O2 Sat by Pulse Oximetry 95 06/22/17 21:21 Oxygen Delivery Oxygen Delivery Room Air Chest Pain - Medical Records Medical records reviewed: Yes I reviewed the patient's medical records. - Lab Data Lab results reviewed: Yes I reviewed the patient's lab results. Result diagrams: 06/22/17 20:32 06/22/17 20:32 Lab Results 06/22/17 06/22/17 06/22/17 Range/Units 20:32 20:32 20:32 WBC 8.1 (4.3-11.1) K/mcL RBC 4.95 (4.19-5.50) M/mcL Hgb 14.7 (12.9-16.9) g/dL Hct 41.4 (37.5-50.1) % MCV 83.6 (83.0-100.0) fL MCH 29.7 (28.0-33.3) pg MCHC 35.5 (31.6-35.5) g/dL RDW 15.1 H (11.5-14.5) % Plt Count 187 (140-400) K/mcL MPV 10.6 (9.4-12.4) fL Sodium 134 L (136-145) mEq/L Potassium 3.8 (3.5-4.5) mEq/L Chloride 98 (98-109) mEq/L Carbon Dioxide 26 (19-29) mEq/L BUN 15 (8-26) mg/dL Creatinine 0.66 L (0.72-1.25) mg/dL Est GFR ( Amer) > 60 (> 60) Est GFR (Non-Af Amer) > 60 (> 60) BUN/Creatinine Ratio 23 (6-26) Glucose 120 H (70-99) mg/dL Calculated Osmolality 280 (280-300) Calcium 9.3 (8.6-10.8) mg/dL Total Bilirubin 0.9 (0.2-1.2) mg/dL Direct Bilirubin 0.4 (0.0-0.5) mg/dL Indirect Bilirubin 0.5 (0.0-1.2) mg/dL AST 20 (5-34) Units/L ALT 20 (0-55) Units/L Alkaline Phosphatase 87 (38-126) Units/L Troponin I (0-0.03) ng/mL Serum Total Protein 6.6 (6.0-8.3) g/dL Albumin 3.2 L (3.5-5.0) g/dL Globulin 3.4 (2.4-3.5) g/dL Albumin/Globulin Ratio 0.9 L (1.1-2.2) Lipase 1394 H (8-78) Units/L 06/22/ Range/Units 20:32 WBC (4.3-11.1) K/mcL RBC (4.19-5.50) M/mcL Hgb (12.9-16.9) g/dL Hct (37.5-50.1) % MCV (83.0-100.0) fL MCH (28.0-33.3) pg MCHC (31.6-35.5) g/dL RDW (11.5-14.5) % Plt Count (140-400) K/mcL MPV (9.4-12.4) fL Sodium (136-145) mEq/L Potassium (3.5-4.5) mEq/L Chloride (98-109) mEq/L Carbon Dioxide (19-29) mEq/L BUN (8-26) mg/dL Creatinine (0.72-1.25) mg/dL Est GFR ( Amer) (> 60) Est GFR (Non-Af Amer) (> 60) BUN/Creatinine Ratio (6-26) Glucose (70-99) mg/dL Calculated Osmolality (280-300) Calcium (8.6-10.8) mg/dL Total Bilirubin (0.2-1.2) mg/dL Direct Bilirubin (0.0-0.5) mg/dL Indirect Bilirubin (0.0-1.2) mg/dL AST (5-34) Units/L ALT (0-55) Units/L Alkaline Phosphatase (38-126) Units/L Troponin I 0.00 (0-0.03) ng/mL Serum Total Protein (6.0-8.3) g/dL Albumin (3.5-5.0) g/dL Globulin (2.4-3.5) g/dL Albumin/Globulin Ratio (1.1-2.2) Lipase (8-78) Units/L - Radiology Data Radiology results reviewed: Yes I reviewed the patient's radiology results. - EKG Data EKG attestation: Yes I reviewed and interpreted this EKG. EKG results narrative: EKG dated 22 June 2017 at 19:47 interpreted as sinus rhythm with a rate of 90. Normal intervals. Left axis. T-wave inversions in preseptal leads are new compared to previous dated 09/17/2016. Heart Score - Score History: Slightly Suspicious EKG: Normal Age: 45-65 Risk Factors: Equal/Greater than 3 risk factor or history of atherosclerotic disease Troponin: Less than normal limit HEART Score Total: 3
[2017-06-22] MEDS ORDERED: *HR* HYDROmorphone (PF) 1 MG/ML SYRINGE IVP ONE ×2 (19:47→21:48)
[2017-06-22] MEDS: 0.9 % Sodium Chloride 1,000 ML IVC SCH ×3 (20:12→23:37)
--- NOTE | 2017-06-22 20:18 | Emergency Department Note ---
Disposition Clinical Impression: Nausea & vomiting, Pancreatitis, Nonspecific ST-T wave electrocardiographic changes Disposition: Admitted As Inpatient Condition: Fair General Adult HPI - General Chief complaint: ED Chest Pain Stated complaint: pain in sternum Time Seen by Provider: 06/22/17 19:18 Source: patient Limitations: no limitations - History of Present Illness Pain Scale: 10 - Related Data Home Medications Medication Instructions Recorded Confirmed amLODIPine [Norvasc] 5 mg PO DAILY 09/17/16 06/22/17 Folic Acid 1 mg PO DAILY 01/22/17 06/22/17 Lidocaine/Prilocaine CREAM [Emla] 1 gm TP AD 01/22/17 06/22/17 Loratadine [Claritin] 10 mg PO DAILY 01/22/17 06/17/17 Meclizine [Antivert] 12.5 mg PO TID PRN 01/22/17 06/22/17 Megestrol Acetate [Megace] 10 ml PO DAILY PRN 01/22/17 06/22/17 Omeprazole 20 mg PO DAILY 01/22/17 06/22/17 Prochlorperazine Maleate 10 mg PO Q6HR 06/22/17 06/22/17 [Compazine] Sertraline [Zoloft] 50 mg PO DAILY 06/22/17 06/22/17 Previous Rx's Medication Instructions Recorded Dexamethasone [Decadron] 4 mg PO AD #60 tablet 03/20/17 Ondansetron HCl 8 mg PO Q8H PRN #90 tablet 04/16/17 Prochlorperazine Maleate 10 mg PO Q6HR PRN #90 tablet 04/16/17 [Compazine] Varenicline Tartrate [Chantix] 1 mg PO BID #60 tablet 04/16/17 Magic Mouthwash [Magic Mouthwash 10 ml PO TID PRN #240 mls 05/05/17 BLM] Blood Pressure Test Kit-Medium 1 each MC AD #1 kit 05/20/17 [Blood Pressure Cuff Monitor] Docusate [Colace] 100 mg PO BID PRN #60 capsule 05/20/17 HYDROcodone/Acet 10/325 mg [[place] 1 tab PO Q6HR PRN #90 tablet 06/17/17 10-325 mg] LORazepam [Ativan] 1 mg PO Q6H PRN #60 tablet 06/17/17 OxyCODONE Immed Rel [Roxicodone 5 5 mg PO Q2HR PRN #90 tablet 06/17/17 MG] Rivaroxaban [Xarelto] 20 mg PO DAILY #30 06/17/17 Allergies Allergy/AdvReac Type Severity Reaction Status Date / Time benazepril Allergy Swelling Verified 06/17/17 09:11 of Lip/Tongue/Throat meloxicam Allergy Swelling Verified 06/17/17 09:11 of Lip/Tongue/Throat Past Medical History - Past Medical History Medical history: Reports: aortic aneurysm, arthritis, cancer, GERD, hyperlipidemia, hypertension, malignancy, osteoporosis, peripheral artery disease, other Surgical history: Reports: other Psychiatric history: Reports: anxiety, depression, other - Social History Smoking Status: Current every day smoker Smokeless Tobacco Status: No Alcohol use: Reports: occasionally Drug use: Reports: none Physical Exam - General Limitations: no limitations General appearance: alert, in no apparent distress Course - Reevaluation(s) Reevaluation #1: I saw the patient with resident, Dr. Lu. Patient presents with complaint of nausea and vomiting all day today. He has been vomiting so much now his stomach muscles are sore. He comes in for vomiting control. On examination he is tender to the rectus abdominis sheath but he is not tender to his belly if you palpate the abdomen without going through the rectus abdominis sheath. He has good bowel sounds. No peritoneal signs. Rest of his exam is unremarkable. We will get his vomiting and discomfort control. We will check for other causes of vomiting other than his underlying medical condition. Disposition will be based on diagnostic results and reevaluation. Time: 20:18 Vital Signs Temperature 98.1 F 06/22/17 19:13 Pulse Rate 98 06/22/17 19:13 Respiratory Rate 20 06/22/17 19:13 Blood Pressure 169/119 06/22/17 19:13 O2 Sat by Pulse Oximetry 97 06/22/17 19:13 Temperature 98.1 F 06/22/17 19:13 Pulse Rate 83 06/22/17 21:21 Respiratory Rate 14 06/22/17 22:03 Blood Pressure 162/105 06/22/17 22:03 O2 Sat by Pulse Oximetry 95 06/22/17 21:21 Oxygen Delivery Oxygen Delivery Room Air Medical Decision Making - Lab Data Result diagrams: 06/22/17 20:32 06/22/17 20:32 Lab Results 06/22/17 06/22/17 06/22/17 Range/Units 20:32 20:32 20:32 WBC 8.1 (4.3-11.1) K/mcL RBC 4.95 (4.19-5.50) M/mcL Hgb 14.7 (12.9-16.9) g/dL Hct 41.4 (37.5-50.1) % MCV 83.6 (83.0-100.0) fL MCH 29.7 (28.0-33.3) pg MCHC 35.5 (31.6-35.5) g/dL RDW 15.1 H (11.5-14.5) % Plt Count 187 (140-400) K/mcL MPV 10.6 (9.4-12.4) fL Sodium 134 L (136-145) mEq/L Potassium 3.8 (3.5-4.5) mEq/L Chloride 98 (98-109) mEq/L Carbon Dioxide 26 (19-29) mEq/L BUN 15 (8-26) mg/dL Creatinine 0.66 L (0.72-1.25) mg/dL Est GFR ( Amer) > 60 (> 60) Est GFR (Non-Af Amer) > 60 (> 60) BUN/Creatinine Ratio 23 (6-26) Glucose 120 H (70-99) mg/dL Calculated Osmolality 280 (280-300) Calcium 9.3 (8.6-10.8) mg/dL Total Bilirubin 0.9 (0.2-1.2) mg/dL Direct Bilirubin 0.4 (0.0-0.5) mg/dL Indirect Bilirubin 0.5 (0.0-1.2) mg/dL AST 20 (5-34) Units/L ALT 20 (0-55) Units/L Alkaline Phosphatase 87 (38-126) Units/L Troponin I (0-0.03) ng/mL Serum Total Protein 6.6 (6.0-8.3) g/dL Albumin 3.2 L (3.5-5.0) g/dL Globulin 3.4 (2.4-3.5) g/dL Albumin/Globulin Ratio 0.9 L (1.1-2.2) Lipase 1394 H (8-78) Units/L 06/22/17 Range/Units 20:32 WBC (4.3-11.1) K/mcL RBC (4.19-5.50) M/mcL Hgb (12.9-16.9) g/dL Hct (37.5-50.1) % MCV (83.0-100.0) fL MCH (28.0-33.3) pg MCHC (31.6-35.5) g/dL RDW (11.5-14.5) % Plt Count (140-400) K/mcL MPV (9.4-12.4) fL Sodium (136-145) mEq/L Potassium (3.5-4.5) mEq/L Chloride (98-109) mEq/L Carbon Dioxide (19-29) mEq/L BUN (8-26) mg/dL Creatinine (0.72-1.25) mg/dL Est GFR ( Amer) (> 60) Est GFR (Non-Af Amer) (> 60) BUN/Creatinine Ratio (6-26) Glucose (70-99) mg/dL Calculated Osmolality (280-300) Calcium (8.6-10.8) mg/dL Total Bilirubin (0.2-1.2) mg/dL Direct Bilirubin (0.0-0.5) mg/dL Indirect Bilirubin (0.0-1.2) mg/dL AST (5-34) Units/L ALT (0-55) Units/L Alkaline Phosphatase (38-126) Units/L Troponin I 0.00 (0-0.03) ng/mL Serum Total Protein (6.0-8.3) g/dL Albumin (3.5-5.0) g/dL Globulin (2.4-3.5) g/dL Albumin/Globulin Ratio (1.1-2.2) Lipase (8-78) Units/L Attestation Statement - Attestation Attestation: I , Dr. Leon, examined this patient [id number] and my medical decision- making was reviewed with the Resident Physician, Dr. Lu. I agree with the documented findings, disposition and treatment plan as described except to the extent set forth below. Please see my progress notes for details.
[2017-06-22 20:40] LABS: Hematocrit 41.4 % (37.5-50.1); Hemoglobin 14.7 g/dL (12.9-16.9); Mean Corpuscular HGB Conc 35.5 g/dL (31.6-35.5); Mean Corpuscular Hemoglobin 29.7 pg (28.0-33.3); Mean Corpuscular Volume 83.6 fL (83.0-100.0); Mean Platelet Volume 10.6 fL (9.4-12.4); Platelet Count 187 K/mcL (140-400); Red Blood Count 4.95 M/mcL (4.19-5.50); Red Cell Distribution Width 15.1 % (11.5-14.5)
[2017-06-22 20:51] LABS: BUN/Creatinine Ratio 23 (6-26); Blood Urea Nitrogen 15 mg/dL (8-26); Calcium 9.3 mg/dL (8.6-10.8); Carbon Dioxide 26 mEq/L (19-29); Chloride 98 mEq/L (98-109); Glucose 120 mg/dL (70-99); Osmolality,Calculated 280 (280-300); Potassium 3.8 mEq/L (3.5-4.5); Sodium 134 mEq/L (136-145); eGFR For African Americans > 60 (> 60); eGFR For Non-African Americans > 60 (> 60)
[2017-06-22 20:52] LABS: Albumin 3.2 g/dL (3.5-5.0); Albumin/Globulin Ratio 0.9 (1.1-2.2); Bilirubin,Direct 0.4 mg/dL (0.0-0.5); Bilirubin,Indirect 0.5 mg/dL (0.0-1.2); Bilirubin,Total 0.9 mg/dL (0.2-1.2); Globulin 3.4 g/dL (2.4-3.5); Total Protein 6.6 g/dL (6.0-8.3)
[2017-06-22] MEDS ORDERED: *HR* Promethazine 25 MG/ML VIAL IVP ONE (20:58)
[2017-06-22] MEDS ORDERED: 0.9 % Sodium Chloride 1,000 ML IVC ONE (21:19)
[2017-06-22] MEDS ORDERED: Aspirin 81 MG TAB.CHEW PO ONE (21:27)
[2017-06-23] MEDS ORDERED: Naloxone 0.4 MG/ML INJ IVP PRN (00:35)
[2017-06-23] MEDS ORDERED: Ondansetron 4 MG/2 ML VIAL IVP PRN (00:35)
[2017-06-23] MEDS ORDERED: *HR* Promethazine 25 MG/ML VIAL IVP PRN (00:45)
[2017-06-23] MEDS ORDERED: *HR* LORazepam 2 MG/ML VIAL IVP PRN ×4 (00:45→11:38)
[2017-06-23 01:16] LABS: Basophils % 0.1 %; Eosinophils % 0.4 %; Hematocrit 38.6 % (37.5-50.1); Hemoglobin 13.8 g/dL (12.9-16.9); Immature Granulocytes % 0.3 % (0-4); Lymphocytes % 14.1 %; Mean Corpuscular HGB Conc 35.8 g/dL (31.6-35.5); Mean Corpuscular Hemoglobin 29.7 pg (28.0-33.3); Mean Corpuscular Volume 83.2 fL (83.0-100.0); Mean Platelet Volume 10.8 fL (9.4-12.4); Monocytes # 0.5 K/mcL (0.0-1.3); Monocytes % 6.4 %; Neutrophils # 5.5 K/mcL (1.6-8.9); Platelet Count 173 K/mcL (140-400); Red Blood Count 4.64 M/mcL (4.19-5.50); Red Cell Distribution Width 14.9 % (11.5-14.5); Segmented Neutrophils % 78.7 %
[2017-06-23 01:22] LABS: INR 1.2; Prothrombin Time 12.9 Seconds (9.4-12.1)
[2017-06-23 01:38] LABS: Alanine Aminotransferase 17 Units/L (0-55); Alkaline Phosphatase 79 Units/L (38-126); Aspartate Amino Transferase 19 Units/L (5-34); BUN/Creatinine Ratio 23 (6-26); Bilirubin,Total 0.8 mg/dL (0.2-1.2); Blood Urea Nitrogen 14 mg/dL (8-26); Calcium 8.8 mg/dL (8.6-10.8); Carbon Dioxide 26 mEq/L (19-29); Chloride 100 mEq/L (98-109); Globulin 3.1 g/dL (2.4-3.5); Glucose 107 mg/dL (70-99); Magnesium 1.8 mg/dL (1.6-2.6); Osmolality,Calculated 279 (280-300); Phosphorous 2.9 mg/dL (2.3-4.7); Potassium 3.8 mEq/L (3.5-4.5); Sodium 134 mEq/L (136-145); Total Protein 6.1 g/dL (6.0-8.3); eGFR For African Americans > 60 (> 60); eGFR For Non-African Americans > 60 (> 60)
[2017-06-23 01:39] LABS: Chol/HDL Ratio 3.1 (0-4.9)
[2017-06-23] MEDS: *HR* Morphine 2 MG/ML SYRINGE IVP PRN ×2 (01:42→08:24)
--- NOTE | 2017-06-23 04:41 | Internal Med History&Physical ---
Date of Encounter: 06/23/17 Time of Encounter: 01:00 Assessment and Plan (1) History of DVT (deep vein thrombosis) Current visit: Yes Status: Acute Patient is on xarelto, will continue (2) Alcohol abuse Current visit: No Status: Acute Patient drink 8 cans of beers every day. Will place patient on CIWA protocol. Social work consult. (3) Pancreatitis Current visit: Yes Status: Acute Abdominal pain with elevated lipase. Consider acute pancreatitis. - We will place patient on nothing by mouth, IV fluid, and the pain medication. - Most likely alcoholic pancreatitis. Will check US abdominal to rule out gallstone. Check a lipid panel to rule out high triglyceride. - Trend lipase level. Qualifiers: Chronicity: acute Pancreatitis type: alcohol induced Acute pancreatitis complication: no infection or necrosis Qualified Code(s): K85.20 - Alcohol induced acute pancreatitis without necrosis or infection (4) DVT prophylaxis Current visit: No Status: Acute Patient is on xarelto (5) Lung cancer Current visit: No Status: Acute Patient is on maintenance chemotherapy now. Continue follow-up with oncology as outpatient. Qualifiers: Laterality: left Lung location: unspecified part of lung Qualified Code(s ): C34.92 - Malignant neoplasm of unspecified part of left bronchus or lung (6) Abnormal EKG Current visit: Yes Status: Acute ER EKG shows T-wave inversion on lead V2 and V3, which is not present on EKG in last August. - EKG is reviewed by myself, to me patient develops new incomplete RBBB. - However, will rule out ACS by trend is 3 sets of troponin. - Continue cardiac monitoring. - Echocardiogram. - Repeat EKG in a.m. to see the change. Internal Medicine - H&P: HPI Chief complaint: Abdominal pain Admitted From: Home Plans for Post Hospital Care: Home History of present illness: Mr. Moon is a 52 year old male with a history of non-small cell lung cancer on chemotherapy, hypertension, history of DVT on xarelto, present to ER for abdominal pain. The pain started today in the morning. Located on the epigastric area, constant, sharp, 10 out of 10, with nausea but no vomiting. Patient denies fever. Denies diarrhea. Patient has mild shortness of breath and diaphoresis. In emergency room, he was found lipase high. Patient was admitted as acute pancreatitis. Patient has history of alcoholism. Pancreatitis probably alcohol related. Patient was also found EKG abnormality with V2 T-wave inversion. Past Med Surg Social Fam HX - Past Medical History Medical history: aortic aneurysm, arthritis, cancer, GERD, hyperlipidemia, hypertension, malignancy, osteoporosis, peripheral artery disease, other Psychiatric history: anxiety, depression, other - Past Surgical History Surgical History: other - Social History Smoking Status: Current every day smoker Packs per day: 1 Smokeless Tobacco Status: No Alcohol use: occasionally Drug use: none - Family History Mother Living Status: Still Living Hx Family Cardiac Disorders: Yes (HTN) Hx Family GI Disorders: Yes (Diverticulitis) Hx Family Endocrine Disorder: Yes (Diabetes) Father Living Status: Still Living Hx Family Cardiac Disorders: Yes (HTN, [place] with stents) Brother Living Status: Hx Family Cancer: Yes (Lung) Internal Medicine - H&P: Meds amLODIPine [Norvasc] 5 mg PO DAILY 09/17/16 [History] Folic Acid 1 mg PO DAILY 01/22/17 [History] Lidocaine/Prilocaine CREAM [Emla] 1 gm TP AD 01/22/17 [History] Loratadine [Claritin] 10 mg PO DAILY 01/22/17 [History] Meclizine [Antivert] 12.5 mg PO TID PRN 01/22/17 [History] Megestrol Acetate [Megace] 10 ml PO DAILY PRN 01/22/17 [History] Omeprazole 20 mg PO DAILY 01/22/17 [History] Dexamethasone [Decadron] 4 mg PO AD #60 tablet 03/20/17 [Rx] Ondansetron HCl 8 mg PO Q8H PRN #90 tablet 04/16/17 [Rx] Prochlorperazine Maleate [Compazine] 10 mg PO Q6HR PRN #90 tablet 04/16/17 [Rx] Varenicline Tartrate [Chantix] 1 mg PO BID #60 tablet 04/16/17 [Rx] Magic Mouthwash [Magic Mouthwash BLM] 10 ml PO TID PRN #240 mls 05/05/17 [Rx] Blood Pressure Test Kit-Medium [Blood Pressure Cuff Monitor] 1 each AD #1 kit 05/20/17 [Rx] Docusate [Colace] 100 mg PO BID PRN #60 capsule 05/20/17 [Rx] HYDROcodone/Acet 10/325 mg [[place] 10-325 mg] 1 tab PO Q6HR PRN #90 tablet [Rx] LORazepam [Ativan] 1 mg PO Q6H PRN #60 tablet 06/17/17 [Rx] OxyCODONE Immed Rel [Roxicodone 5 MG] 5 mg PO Q2HR PRN #90 tablet 06/17/17 [Rx] Rivaroxaban [Xarelto] 20 mg PO DAILY #30 06/17/17 [Rx] Prochlorperazine Maleate [Compazine] 10 mg PO Q6HR 06/22/17 [History] Sertraline [Zoloft] 50 mg PO DAILY 06/22/17 [History] 3 Allergy/AdvReac Type Severity Reaction Status Date / Time benazepril Allergy Swelling Verified 06/17/17 09:11 of Lip/Tongue/Throat meloxicam Allergy Swelling Verified 06/17/17 09:11 of Lip/Tongue/Throat All Systems PM: A 10-system review of systems was performed and is negative for pertinent findings except as documented above in the HPI. - Constitutional Vitals: Temp Pulse Resp BP Pulse Ox 98.4 F 92 16 135/86 95 06/23/17 03:24 06/23/17 03:24 06/23/17 03:24 06/23/17 03:24 06/23/17 03:24 General appearance: Present: A&O X 3, no acute distress, answers questions appropriately - Head Head exam: Present: atraumatic, normocephalic - Eye Eye exam: Present: PERRL, conjuntiva pink, sclera anicteric Pupils: Present: PERRL - Neck Neck exam general surgery: Present: supple, trachea midline. Absent: lymphadenopathy - Respiratory Respiratory exam: Present: CTAB. Absent: accessory muscle use, rales, rhonchi, wheezes - Cardiovascular Cardiovascular exam: Present: RRR, +S1, +S2. Absent: diastolic murmur, gallop, rubs, systolic murmur - GI/Abdominal GI/Abdominal exam: Present: normal bowel sounds, soft, tenderness (Mild to moderate tenderness on LUQ, without guarding or rebound.), no peritoneal signs. Absent: distended - Extremities Exam Extremities exam: Present: warm, radial pulses palpable and symmetrical. Absent : calf tenderness, cyanotic, pedal edema - Neurological Exam Neurological exam: Present: CN II-XII intact, oriented X3, no focal deficits. Absent: pronater drift, facial droop, speech deficit - Skin Skin exam: Present: dry, intact Internal Med - H&P Results - Labs CBC & Chem 7: 06/23/17 00:58 06/23/17 00:58 Labs: Short CBC 06/23/17 Range/Units 00:58 WBC 7.0 (4.3-11.1) K/mcL Hgb 13.8 (12.9-16.9) g/dL Hct 38.6 (37.5-50.1) % Plt Count 173 (140-400) K/mcL Neutrophils # 5.5 (1.6-8.9) K/mcL BMP 06/23/17 00:58 Sodium 134 L Potassium 3.8 Chloride 100 Carbon Dioxide 26 BUN 14 Creatinine 0.60 L Glucose 107 H Calcium 8.8 Cardiac Enzymes 06/23/17 Range/Units 00:58 Troponin I 0.01 (0-0.03) ng/mL Liver Function 06/23/17 Range/Units 00:58 Total Bilirubin 0.8 (0.2-1.2) mg/dL AST 19 (5-34) Units/L ALT 17 (0-55) Units/L Alkaline Phosphatase 79 (38-126) Units/L Albumin 3.0 L (3.5-5.0) g/dL - EKG Data -: EKG Interpreted by Myself EKG shows normal: sinus rhythm Rate: normal
[2017-06-23] MEDS: 0.9 % Sodium Chloride 1,000 ML IVC SCH ×3 (08:24→20:20)
[2017-06-23] MEDS: *HR* Rivaroxaban 10 MG TABLET PO SCH (08:25)
[2017-06-23] MEDS: Folic Acid 1 MG TABLET PO SCH (08:25)
[2017-06-23] MEDS: Pantoprazole 40 MG VIAL IVP SCH (08:25)
[2017-06-23] MEDS: amLODIPine 5 MG TABLET PO SCH (08:25)
[2017-06-23] MEDS: *HR* OxyCODONE Immed Rel 5 MG TABLET PO PRN ×2 (14:36→20:21)
--- NOTE | 2017-06-23 15:19 | Event Note ---
Date of Encounter: 06/23/17 Time of Encounter: 11:20 Mr. Moon is a 52 year old male with a history of non-small cell lung cancer on chemotherapy, hypertension, history of DVT on xarelto, present to ER for abdominal pain. He does drink alcohol 8-10 beers a day. Pt was seen and examined at bed side today. He denied any CP / SOB. His abdominal pain is little better today, denied any more nausea / vomiting. Gen: A, A< O x3 Chest: Diminshed BS b/l, no crackles / rales Heart : S1 S2 +, RRR No mururs abd: Soft, mild discomfort janine umbilical region..no guarding rigidity a/p 1. Acute pancreatitis - due to alcohol Improving cont close monitoring IV hdyration started on full liquid diet today 2. mild EKG changes so far negative troponin x 3 no acute changes on Echo 3. Chronic alcohol dependence counseled o quit on CIWA protocol also started him on Librium 25mg QID scheduled
[2017-06-24 06:56] LABS: Basophils % 0.3 %; Eosinophils # 0.1 K/mcL (0.0-0.6); Eosinophils % 2.1 %; Hematocrit 35.5 % (37.5-50.1); Immature Granulocytes % 0.7 % (0-4); Lymphocytes # 1.3 K/mcL (0.6-4.6); Lymphocytes % 21.8 %; Mean Corpuscular HGB Conc 36.6 g/dL (31.6-35.5); Mean Corpuscular Hemoglobin 30.4 pg (28.0-33.3); Mean Corpuscular Volume 83.1 fL (83.0-100.0); Monocytes # 1.1 K/mcL (0.0-1.3); Monocytes % 17.9 %; Neutrophils # 3.5 K/mcL (1.6-8.9); Nucleated Red Blood Cells 0.5 /100 WBC (0); Platelet Count 154 K/mcL (140-400); Red Blood Count 4.27 M/mcL (4.19-5.50); Red Cell Distribution Width 15.3 % (11.5-14.5); Segmented Neutrophils % 57.2 %
[2017-06-24 07:10] LABS: Alanine Aminotransferase 15 Units/L (0-55); Albumin 2.6 g/dL (3.5-5.0); Albumin/Globulin Ratio 0.8 (1.1-2.2); Alkaline Phosphatase 62 Units/L (38-126); Aspartate Amino Transferase 17 Units/L (5-34); BUN/Creatinine Ratio 19 (6-26); Bilirubin,Total 0.6 mg/dL (0.2-1.2); Blood Urea Nitrogen 12 mg/dL (8-26); Calcium 8.9 mg/dL (8.6-10.8); Carbon Dioxide 27 mEq/L (19-29); Chloride 102 mEq/L (98-109); Globulin 3.2 g/dL (2.4-3.5); Glucose 98 mg/dL (70-99); Lipase 398 Units/L (8-78); Magnesium 1.7 mg/dL (1.6-2.6); Osmolality,Calculated 278 (280-300); Potassium 3.6 mEq/L (3.5-4.5); Sodium 134 mEq/L (136-145); Total Protein 5.8 g/dL (6.0-8.3); eGFR For African Americans > 60 (> 60); eGFR For Non-African Americans > 60 (> 60)
[2017-06-24] MEDS: Pantoprazole 40 MG VIAL IVP SCH (08:21)
[2017-06-24] MEDS: amLODIPine 5 MG TABLET PO SCH (08:22)
[2017-06-24] MEDS: *HR* Rivaroxaban 10 MG TABLET PO SCH (08:22)
[2017-06-24] MEDS: Folic Acid 1 MG TABLET PO SCH (08:22)
--- NOTE | 2017-06-24 12:02 | Discharge Summary ---
Date of Encounter: 06/24/17 Time of Encounter: 12:00 - Discharge Diagnosis (1) Nausea & vomiting Priority: Primary Status: Resolved Qualifiers: Vomiting type: unspecified Vomiting Intractability: intractable Qualified Code(s): R11.2 - Nausea with vomiting, unspecified (2) Nonspecific ST-T wave electrocardiographic changes Priority: Primary Status: Acute (3) Pancreatitis Priority: Primary Status: Acute Qualifiers: Chronicity: acute Pancreatitis type: alcohol induced Acute pancreatitis complication: no infection or necrosis Qualified Code(s): K85.20 - Alcohol induced acute pancreatitis without necrosis or infection (4) Alcohol abuse Priority: Secondary Status: Acute (5) Lung cancer Priority: Secondary Status: Acute Qualifiers: Laterality: left Lung location: unspecified part of lung Qualified Code(s ): C34.92 - Malignant neoplasm of unspecified part of left bronchus or lung (6) COPD (chronic obstructive pulmonary disease) with emphysema Priority: Secondary Status: Chronic Qualifiers: Emphysema type: panlobular Qualified Code(s): J43.1 - Panlobular emphysema - Discharge Medications Prescriptions: Chlordiazepoxide [Librium] 25 mg PO QID #20 Metoprolol [Lopressor] 25 mg PO BID #60 tab Home Medications: amLODIPine [Norvasc] 5 mg PO DAILY 09/17/16 [History] Folic Acid 1 mg PO DAILY 01/22/17 [History] Lidocaine/Prilocaine CREAM [Emla] 1 gm TP AD 01/22/17 [History] Loratadine [Claritin] 10 mg PO DAILY 01/22/17 [History] Meclizine [Antivert] 12.5 mg PO TID PRN 01/22/17 [History] Megestrol Acetate [Megace] 10 ml PO DAILY PRN 01/22/17 [History] Omeprazole 20 mg PO DAILY 01/22/17 [History] Dexamethasone [Decadron] 4 mg PO AD #60 tablet 03/20/17 [Rx] Ondansetron HCl 8 mg PO Q8H PRN #90 tablet 04/16/17 [Rx] Varenicline Tartrate [Chantix] 1 mg PO BID #60 tablet 04/16/17 [Rx] Magic Mouthwash [Magic Mouthwash BLM] 10 ml PO TID PRN #240 mls 05/05/17 [Rx] Docusate [Colace] 100 mg PO BID PRN #60 capsule 05/20/17 [Rx] HYDROcodone/Acet 10/325 mg [[place] 10-325 mg] 1 tab PO Q6HR PRN #90 tablet [Rx] Rivaroxaban [Xarelto] 20 mg PO DAILY #30 06/17/17 [Rx] Sertraline [Zoloft] 50 mg PO DAILY 06/22/17 [History] Chlordiazepoxide [Librium] 25 mg PO QID #20 06/24/17 [Rx] LORazepam [Ativan] 1 mg PO Q12H PRN #60 tablet 06/24/17 [Rx] Metoprolol [Lopressor] 25 mg PO BID #60 tab 06/24/17 [Rx] Allergies/Adverse Reactions: 3 Allergy/AdvReac Type Severity Reaction Status Date / Time benazepril Allergy Swelling Verified 06/17/17 09:11 of Lip/Tongue/Throat meloxicam Allergy Swelling Verified 06/17/17 09:11 of Lip/Tongue/Throat Procedures/tests Complete & Pending: Procedures Performed prior 72 hours Category Date Time Status US abdomen limited [US] Stat Exams 06/23/17 10:00 Completed ECG 12 lead ECG [ECG] AM 0600 Y 06/23/17 06:00 Completed EV echocardiogram Stat Y 06/23/17 00:40 Completed Date of admission: 06/22/17 21:35 Primary care physician: Guy Gibbs Consults: 06/23/17 00:45 Consult to [employer] [CONS] Routine Reason for SW Consult: Alcoholism - Patient Status Disposition: Home, Self-Care Condition: Good Overall status at discharge: patient is back to baseline - Discharge Instructions Follow Up With: Ivana Weston, TREASURY MANAGER [Primary Care Provider] - Additional Instructions: Need to f/u with PCP in one week Continue taking tapering dose of Librium for your alcohol withdrawal symptoms Please quit drinking alcohol - Diet and Activity Activity: increase activity as tolerated Diet: low salt diet Hospital course: Mr. Moon is a 52 year old male with a history of non-small cell lung cancer on chemotherapy, hypertension, history of DVT on xarelto, present to ER for abdominal pain. He does drink alcohol 8-10 beers a day. Pt had U/S of abd done which showed pancreatitis and his lipase levels are also significantly elevated at 1394. His pancreatitis could be due to alcohol induced. We placed him on NPO initially and continued IV hydration. His lipase started trending down and he is tolerating PO intae well. Counseled the pt to quit drinking and go to a rehab clinic. He is willing to do by himself with medication help. So I started him on tapering dose of librium, since then he has been doing well. No active withdrawal symptoms noticed here. He did have some non specific EKG changes up on admission, but pt denied any CP and his Troponin x 3 were negative. His 2 D Echo also unremarkable. So will d/c him home today in stable condition. Recommend to f/u with PCP in one week - Time Spent with Patient Total time spent providing and/or coordinating discharge services: - Constitutional Vitals: Temp Pulse Resp BP Pulse Ox 98.3 F 80 16 132/87 94 06/24/17 10:44 06/24/17 10:44 06/24/17 10:44 06/24/17 10:44 06/24/17 10:44 General appearance: Present: A&O X 3, no acute distress, answers questions appropriately - Head Head exam: Present: atraumatic, normal inspection - Respiratory Respiratory exam: Present: decreased breath sounds. Absent: rales, respiratory distress, rhonchi, wheezes - Cardiovascular Cardiovascular exam: Present: RRR, +S1, +S2. Absent: systolic murmur - GI/Abdominal GI/Abdominal exam: Present: normal bowel sounds, soft. Absent: rebound, rigid, tenderness - Extremities Exam Extremities exam: Absent: calf tenderness, pedal edema, tenderness - Neurological Exam Neurological exam: Present: alert, oriented X3 - Psychiatric Psychiatric exam: Present: normal affect, normal mood
[2017-06-24 14:25] VITALS: BP 148/75
--- NOTE | 2017-06-24 14:35 | Electrocardiograph Report ---
[place] [address] Test Date: 2017-06-22 Pat Name: Sachin Moon Department: 104 Room: 3A34 Gender: M Procedure Tech: HEATHER : 1965 Requested By: Jayden Gallardo Order Number: [id number] Reading MD: Yarelis Saul Measurements Intervals [place] Rate: 90 P: 30 VA: 125 QRS: -31 QRSD: 103 T: 1 QT: 350 QTc: 398 Interpretive Statements SINUS RHYTHM MARKED LEFT AXIS DEVIATION RIGHT VENTRICULAR CONDUCTION DELAY ST DEVIATION AND MODERATE T-WAVE ABNORMALITY, CONSIDER ANTERIOR ISCHEMIA Electronically Signed On 06-24-2017 14:34:39 EDT by Yarelis Saul
--- NOTE | 2017-06-24 14:50 | Electrocardiograph Report ---
[address] [address] Test Date: 2017-06-23 Pat Name: Sachin Moon Department: 115 Room: 3A Gender: M [facility] Administrator: [id number] : 1965 Requested By: Mac Casillas Order Number: [id number] Reading MD: Yarelis Saul Measurements Intervals [place] Rate: 90 P: 56 DC: 143 QRS: -27 QRSD: 114 T: -5 QT: 355 QTc: 403 Interpretive Statements SINUS RHYTHM BORDERLINE LEFT AXIS DEVIATION POSSIBLE RIGHT VENTRICULAR CONDUCTION DELAY Electronically Signed On 06-24-2017 14:48:43 EDT by Yarelis Saul
== END 2017-06-24 14:20 | disposition home or self-care (01) ==
LOC: 3ANU 19:12 → EMEROO 19:12 → SUATTDRO 21:35 → 3ANU 22:34
PROVIDERS: ADMIT Internal Medicine; ATTEND Family Medicine

== ENCOUNTER 2017-10-13 15:53 | Inpatient (IN) ==
--- NOTE | 2017-10-13 18:17 | Emergency Department Note ---
Disposition Clinical Impression: Alcohol abuse Pancreatitis, alcoholic, acute Qualifiers: Acute pancreatitis complication: unspecified Qualified Code(s): K85.20 - Alcohol induced acute pancreatitis without necrosis or infection Disposition: Admitted As Inpatient Condition: Fair Referrals: Ivana Weston CNP [Primary Care Provider] - Forms: ED Satisfaction Letter General Adult HPI - General Chief complaint: ED Chest Pain Stated complaint: Gallbladder pain x3 days Time Seen by Provider: 10/13/17 16:10 Source: patient Limitations: no limitations Nursing Notes Reviewed: Yes Vital Signs Reviewed: Yes - History of Present Illness Pain Scale: 7 - Related Data Home Medications Medication Instructions Recorded Confirmed amLODIPine [Norvasc] 5 mg PO DAILY 09/17/16 09/28/17 Lidocaine/Prilocaine CREAM [Emla] 1 gm TP AD 01/22/17 09/28/17 Megestrol Acetate [Megace] 10 ml PO DAILY PRN 01/22/17 09/28/17 Sertraline [Zoloft] 50 mg PO DAILY 06/22/17 09/28/17 Previous Rx's Medication Instructions Recorded Magic Mouthwash [Magic Mouthwash 10 ml PO TID PRN #240 mls 05/05/17 BLM] Docusate [Colace] 100 mg PO BID PRN #60 capsule 05/20/17 Crizotinib [Xalkori] 250 mg PO BID #60 capsule 07/22/17 Alectinib HCl [Alecensa] 450 mg PO BID #180 capsule 09/14/17 Ondansetron HCl 8 mg PO Q8H PRN #90 tablet 09/14/17 Prochlorperazine Maleate 10 mg PO Q8HR PRN #30 tablet 09/14/17 [Compazine] Rivaroxaban [Xarelto] 20 mg PO DAILY #30 tablet 09/14/17 Varenicline Tartrate [Chantix 1 mg PO BID #60 tablet 09/14/17 Continuing Months Pack] Omeprazole 20 mg PO BID #60 tablet. 09/28/17 HYDROcodone/Acet 10/325 mg [[place] 1 tab PO Q6HR PRN #90 tab 10/07/17 10-325 mg] LORazepam [Ativan] 1 mg PO Q6HR PRN #60 tablet 10/07/17 Allergies Allergy/AdvReac Type Severity Reaction Status Date / Time benazepril Allergy Swelling Verified 09/28/17 11:13 of Lip/Tongue/Throat meloxicam Allergy Swelling Verified 09/28/17 11:13 of Lip/Tongue/Throat Past Medical History - Past Medical History Medical history: Reports: aortic aneurysm, arthritis, cancer, GERD, hyperlipidemia, hypertension, malignancy, osteoporosis, peripheral artery disease, other Surgical history: Reports: other Psychiatric history: Reports: anxiety, depression, other - Social History Smoking Status: Current every day smoker Smokeless Tobacco Status: No Alcohol use: Reports: heavy Drug use: Reports: none Physical Exam - General Limitations: no limitations General appearance: alert, in no apparent distress Course Vital Signs Temperature 98.3 F 10/13/17 15:59 Pulse Rate 85 10/13/17 15:59 Respiratory Rate 14 10/13/17 15:59 Blood Pressure 135/92 10/13/17 15:59 O2 Sat by Pulse Oximetry 98 10/13/17 15:59 Temperature 98.3 F 10/13/17 15:59 Pulse Rate 85 10/13/17 15:59 Respiratory Rate 14 10/13/17 15:59 Blood Pressure 135/92 10/13/17 15:59 O2 Sat by Pulse Oximetry 98 10/13/17 15:59 Oxygen Delivery Oxygen Delivery Room Air Medical Decision Making - MDM Narrative Medical decision making narrative: This documentation is done with the assistance of Dragon dictation. Despite efforts to ensure accuracy, there may be inaccuracies in inspector machined parts or spelling and typographical errors. I examined this patient and my medical decision-making was reviewed with the Resident Physician. I agree with the documented findings, disposition and treatment plan as described except to the extent set forth below. Patient seen and evaluated on arrival with Dr. Galileo Larkin, I agree with his evaluation and management plan, I supervised the care of the patient notes today. Patient was epigastric and left upper quadrant pain. History of pancreatitis from alcoholism. He states still drinks. He looks well. He is not vomiting. He also has stage IV lung cancer which she is taking oral medications for and thinks is tolerating that well. He has had some chest discomfort. Going and a troponin chest x-ray EKG lab work. I do not think needs a CT of his abdomen at this time. We will try to make him more comfortable then reassess. He is in agreement with this plan. Chest X-Ray 10/13/17 18:14 IMPRESSION: No acute cardiopulmonary disease D/ / Bryson Alfred MD / Bryson Alfred MD Interpreting Provider: Bryson Alfred MD 2100 hrs.: Patient does have pancreatitis by his labs. We were going to go ahead and CT his abdomen did not talk about admitting to the hospital with hospitalist. He is in agreement with this plan. 2234 hrs.: Patient is back from CT waiting reading from radiology. Chest X-Ray 10/13/17 18:14 IMPRESSION: No acute cardiopulmonary disease D/ / Bryson Alfred MD / Bryson Alfred MD Interpreting Provider: Bryson Alfred MD Abdomen/Pelvis CT 10/13/17 20:58 IMPRESSION: Diffuse pancreatic edema, inflammatory change, and peripancreatic fluid, compatible with acute pancreatitis. No evidence for drainable fluid collection. D/ / John Gan MD / John Gan MD Interpreting Provider: John Gan MD 2247 hrs.: Patient does have changes on CT consistent with acute pancreatitis. He is feeling better. Recommended bringing him into the hospital. They are in agreement with plan. - Lab Data Result diagrams: 10/13/17 18:30 10/13/17 19:45 Lab Results 10/13/17 10/13/17 10/13/17 Range/Units 18:30 18:30 19:30 WBC 8.6 (4.3-11.1) K/mcL RBC 4.93 (4.19-5.50) M/mcL Hgb 14.2 (12.9-16.9) g/dL Hct 38.2 (37.5-50.1) % MCV 77.5 L (83.0-100.0) fL MCH 28.8 (28.0-33.3) pg MCHC 37.2 H (31.6-35.5) g/dL RDW 15.1 H (11.5-14.5) % Plt Count 215 (140-400) K/mcL MPV 11.6 (9.4-12.4) fL Immature Gran % 0.3 (0-4) % Seg Neutrophils % 66.8 % Lymphocytes % 21.8 % Monocytes % 7.7 % Eosinophils % 3.1 % Basophils % 0.3 % Neutrophils # 5.7 (1.6-8.9) K/mcL Lymphocytes # 1.9 (0.6-4.6) K/mcL Monocytes # 0.7 (0.0-1.3) K/mcL Eosinophils # 0.3 (0.0-0.6) K/mcL Basophils # 0.0 (0.0-0.2) K/mcL Sodium (136-145) mEq/L Potassium (3.5-5.1) mEq/L Chloride (98-107) mEq/L Carbon Dioxide (23-29) mEq/L BUN (6-20) mg/dL Creatinine (0.70-1.30) mg/dL Est GFR ( Amer) (> 60) Est GFR (Non-Af Amer) (> 60) BUN/Creatinine Ratio (6-26) Glucose (70-105) mg/dL Calculated Osmolality (280-300) Calcium (8.6-10.3) mg/dL Total Bilirubin (0.3-1.0) mg/dL AST (13-39) Units/L ALT (7-52) Units/L Alkaline Phosphatase (34-104) Units/L Troponin I < 0.03 (< 0.04) ng/mL Serum Total Protein (6.4-8.9) g/dL Albumin (3.5-5.7) g/dL Globulin (2.4-3.5) g/dL Albumin/Globulin Ratio (1.1-2.2) Lipase (11-82) Units/L Specimen Rejected Hemolyzed 10/13/17 Range/Units 19:45 WBC (4.3-11.1) K/mcL RBC (4.19-5.50) M/mcL Hgb (12.9-16.9) g/dL Hct (37.5-50.1) % MCV (83.0-100.0) fL MCH (28.0-33.3) pg MCHC (31.6-35.5) g/dL RDW (11.5-14.5) % Plt Count (140-400) K/mcL MPV (9.4-12.4) fL Immature Gran % (0-4) % Seg Neutrophils % % Lymphocytes % % Monocytes % % Eosinophils % % Basophils % % Neutrophils # (1.6-8.9) K/mcL Lymphocytes # (0.6-4.6) K/mcL Monocytes # (0.0-1.3) K/mcL Eosinophils # (0.0-0.6) K/mcL Basophils # (0.0-0.2) K/mcL Sodium 138 (136-145) mEq/L Potassium 3.2 L (3.5-5.1) mEq/L Chloride 108 H (98-107) mEq/L Carbon Dioxide 23 (23-29) mEq/L BUN 16 (6-20) mg/dL Creatinine 0.55 L (0.70-1.30) mg/dL Est GFR ( Amer) > 60 (> 60) Est GFR (Non-Af Amer) > 60 (> 60) BUN/Creatinine Ratio 29 H (6-26) Glucose 96 (70-105) mg/dL Calculated Osmolality 287 (280-300) Calcium 8.5 L (8.6-10.3) mg/dL Total Bilirubin 0.4 (0.3-1.0) mg/dL AST 19 (13-39) Units/L ALT 16 (7-52) Units/L Alkaline Phosphatase 85 (34-104) Units/L Troponin I (< 0.04) ng/mL Serum Total Protein 5.8 L (6.4-8.9) g/dL Albumin 3.5 (3.5-5.7) g/dL Globulin 2.3 L (2.4-3.5) g/dL Albumin/Globulin Ratio 1.5 (1.1-2.2) Lipase 1284 H (11-82) Units/L Specimen Rejected
[2017-10-13] MEDS ORDERED: Ondansetron 4 MG/2 ML VIAL IVP ONE (18:18)
[2017-10-13] MEDS ORDERED: 0.9 % Sodium Chloride 1,000 ML IVC ONE (18:18)
[2017-10-13] MEDS ORDERED: *HR* HYDROmorphone (PF) 1 MG/ML SYRINGE IVP ONE ×2 (18:18→22:52)
--- NOTE | 2017-10-13 18:18 | Emergency Department Note ---
Disposition Clinical Impression: Alcohol abuse Pancreatitis, alcoholic, acute Qualifiers: Acute pancreatitis complication: unspecified Qualified Code(s): K85.20 - Alcohol induced acute pancreatitis without necrosis or infection Disposition: Admitted As Inpatient Condition: Good Referrals: Ivana Weston CNP [Primary Care Provider] - Forms: ED Satisfaction Letter Time of Disposition: 22:55 General Adult HPI - General Chief complaint: ED Chest Pain Stated complaint: Gallbladder pain x3 days Time Seen by Provider: 10/13/17 16:10 Source: patient Limitations: no limitations Nursing Notes Reviewed: Yes Vital Signs Reviewed: Yes - History of Present Illness HPI Narrative: Patient is a 52-year-old male presents to emergency department with epigastric, left chest and left abdominal pain. He states that this all began on Thursday and has been constant since then. Says nothing seems to make the pain any better or worse. He states that he rates his pain as a 7 out of 10 with no radiation. He said that this feels similar to previous pancreatic attacks. States that he has had nausea, cough but denies any diarrhea. He also states that he has had a couple episodes of vomiting. Patient has recently been diagnosed stage IV small cell lung cancer in the left lung. He states that he has recently changed his chemotherapy medication but has been tolerating that well without any nausea or vomiting. Patient states that he is drinking approximately a 12 pack of beer a day and this is light drinking for him. He states that he has been drinking much heavier for the past 35 years. Pain Scale: 7 - Related Data Home Medications Medication Instructions Recorded Confirmed amLODIPine [Norvasc] 5 mg PO DAILY 09/17/16 09/28/17 Lidocaine/Prilocaine CREAM [Emla] 1 gm TP AD 01/22/17 09/28/17 Megestrol Acetate [Megace] 10 ml PO DAILY PRN 01/22/17 09/28/17 Sertraline [Zoloft] 50 mg PO DAILY 06/22/17 09/28/17 Previous Rx's Medication Instructions Recorded Magic Mouthwash [Magic Mouthwash 10 ml PO TID PRN #240 mls 05/05/17 BLM] Docusate [Colace] 100 mg PO BID PRN #60 capsule 05/20/17 Crizotinib [Xalkori] 250 mg PO BID #60 capsule 07/22/17 Alectinib HCl [Alecensa] 450 mg PO BID #180 capsule 09/14/17 Ondansetron HCl 8 mg PO Q8H PRN #90 tablet 09/14/17 Prochlorperazine Maleate 10 mg PO Q8HR PRN #30 tablet 09/14/17 [Compazine] Rivaroxaban [Xarelto] 20 mg PO DAILY #30 tablet 09/14/17 Varenicline Tartrate [Chantix 1 mg PO BID #60 tablet 09/14/17 Continuing Months Pack] Omeprazole 20 mg PO BID #60 tablet. 09/28/17 HYDROcodone/Acet 10/325 mg [[place] 1 tab PO Q6HR PRN #90 tab 10/07/17 10-325 mg] LORazepam [Ativan] 1 mg PO Q6HR PRN #60 tablet 10/07/17 Allergies Allergy/AdvReac Type Severity Reaction Status Date / Time benazepril Allergy Swelling Verified 09/28/17 11:13 of Lip/Tongue/Throat meloxicam Allergy Swelling Verified 09/28/17 11:13 of Lip/Tongue/Throat All systems ED: reviewed and negative except as stated. Cardiovascular: Reports: chest pain Respiratory: Reports: cough Gastrointestinal: Reports: abdominal pain, nausea, vomiting. Denies: diarrhea Genitourinary: Denies: urgency, dysuria, frequency Past Medical History - Past Medical History Medical history: Reports: aortic aneurysm, arthritis, cancer, GERD, hyperlipidemia, hypertension, malignancy, osteoporosis, peripheral artery disease, other Surgical history: Reports: other Psychiatric history: Reports: anxiety, depression, other - Social History Smoking Status: Current every day smoker Smokeless Tobacco Status: No Alcohol use: Reports: heavy Drug use: Reports: none Physical Exam - General Limitations: no limitations General appearance: alert, in no apparent distress - Head Head exam: atraumatic, normocephalic - Eye Eye exam: Present: normal appearance, EOMI - Neck Neck exam: Present: normal inspection, full ROM, trachea midline - Respiratory Respiratory exam: Present: normal lung sounds bilaterally. Absent: respiratory distress, wheezes - Cardiovascular Cardiovascular exam: Present: regular rate, normal rhythm, normal heart sounds, +S1, +S2 - Abdominal Exam Abdominal exam: Present: soft, tenderness, normal bowel sounds Abdominal tenderness: Present: LUQ, epigastrium, mild - Neurological Exam Neurological exam: Present: alert, oriented X3 - Psychiatric Psychiatric exam: Present: normal affect, normal mood - Skin Skin exam: Present: warm, dry, intact Course Vital Signs Temperature 98.3 F 10/13/17 15:59 Pulse Rate 85 10/13/17 15:59 Respiratory Rate 14 10/13/17 15:59 Blood Pressure 135/92 10/13/17 15:59 O2 Sat by Pulse Oximetry 98 10/13/17 15:59 Temperature 98.3 F 10/13/17 15:59 Pulse Rate 85 10/13/17 15:59 Respiratory Rate 14 10/13/17 15:59 Blood Pressure 135/92 10/13/17 15:59 O2 Sat by Pulse Oximetry 98 10/13/17 15:59 Oxygen Delivery Oxygen Delivery Room Air Medical Decision Making - MDM Narrative Medical decision making narrative: Due to the patient having epigastric and chest pain with a history of pancreatitis we will order a CBC, CMP and lipase, EKG troponin and a chest x- ray. Patient will also be given fluids and analgesics. Patient had a significantly elevated lipase, negative troponin, EKG showed sinus rhythm. CT scan was indicative of acute pancreatitis. This is consistent with the patient' s physical exam and the history that has been provided. The patient will need to be admitted to the hospital for further evaluation and management. We spoke with hospitalist and the patient has been accepted to their service. The patient will be admitted to the hospital at this time. - Medical Records Medical records reviewed: Yes I reviewed the patient's medical records. - Lab Data Lab results reviewed: Yes I reviewed the patient's lab results. Result diagrams: 10/13/17 18:30 10/13/17 19:45 Lab Results 10/13/17 10/13/17 10/13/17 Range/Units 18:30 18:30 19:30 WBC 8.6 (4.3-11.1) K/mcL RBC 4.93 (4.19-5.50) M/mcL Hgb 14.2 (12.9-16.9) g/dL Hct 38.2 (37.5-50.1) % MCV 77.5 L (83.0-100.0) fL MCH 28.8 (28.0-33.3) pg MCHC 37.2 H (31.6-35.5) g/dL RDW 15.1 H (11.5-14.5) % Plt Count 215 (140-400) K/mcL MPV 11.6 (9.4-12.4) fL Immature Gran % 0.3 (0-4) % Seg Neutrophils % 66.8 % Lymphocytes % 21.8 % Monocytes % 7.7 % Eosinophils % 3.1 % Basophils % 0.3 % Neutrophils # 5.7 (1.6-8.9) K/mcL Lymphocytes # 1.9 (0.6-4.6) K/mcL Monocytes # 0.7 (0.0-1.3) K/mcL Eosinophils # 0.3 (0.0-0.6) K/mcL Basophils # 0.0 (0.0-0.2) K/mcL Sodium (136-145) mEq/L Potassium (3.5-5.1) mEq/L Chloride (98-107) mEq/L Carbon Dioxide (23-29) mEq/L BUN (6-20) mg/dL Creatinine (0.70-1.30) mg/dL Est GFR ( Amer) (> 60) Est GFR (Non-Af Amer) (> 60) BUN/Creatinine Ratio (6-26) Glucose (70-105) mg/dL Calculated Osmolality (280-300) Calcium (8.6-10.3) mg/dL Total Bilirubin (0.3-1.0) mg/dL AST (13-39) Units/L ALT (7-52) Units/L Alkaline Phosphatase (34-104) Units/L Troponin I < 0.03 (< 0.04) ng/mL Serum Total Protein (6.4-8.9) g/dL Albumin (3.5-5.7) g/dL Globulin (2.4-3.5) g/dL Albumin/Globulin Ratio (1.1-2.2) Lipase (11-82) Units/L Specimen Rejected Hemolyzed 10/13/17 Range/Units 19:45 WBC (4.3-11.1) K/mcL RBC (4.19-5.50) M/mcL Hgb (12.9-16.9) g/dL Hct (37.5-50.1) % MCV (83.0-100.0) fL MCH (28.0-33.3) pg MCHC (31.6-35.5) g/dL RDW (11.5-14.5) % Plt Count (140-400) K/mcL MPV (9.4-12.4) fL Immature Gran % (0-4) % Seg Neutrophils % % Lymphocytes % % Monocytes % % Eosinophils % % Basophils % % Neutrophils # (1.6-8.9) K/mcL Lymphocytes # (0.6-4.6) K/mcL Monocytes # (0.0-1.3) K/mcL Eosinophils # (0.0-0.6) K/mcL Basophils # (0.0-0.2) K/mcL Sodium 138 (136-145) mEq/L Potassium 3.2 L (3.5-5.1) mEq/L Chloride 108 H (98-107) mEq/L Carbon Dioxide 23 (23-29) mEq/L BUN 16 (6-20) mg/dL Creatinine 0.55 L (0.70-1.30) mg/dL Est GFR ( Amer) > 60 (> 60) Est GFR (Non-Af Amer) > 60 (> 60) BUN/Creatinine Ratio 29 H (6-26) Glucose 96 (70-105) mg/dL Calculated Osmolality 287 (280-300) Calcium 8.5 L (8.6-10.3) mg/dL Total Bilirubin 0.4 (0.3-1.0) mg/dL AST 19 (13-39) Units/L ALT 16 (7-52) Units/L Alkaline Phosphatase 85 (34-104) Units/L Troponin I (< 0.04) ng/mL Serum Total Protein 5.8 L (6.4-8.9) g/dL Albumin 3.5 (3.5-5.7) g/dL Globulin 2.3 L (2.4-3.5) g/dL Albumin/Globulin Ratio 1.5 (1.1-2.2) Lipase 1284 H (11-82) Units/L Specimen Rejected - Radiology Data Radiology results reviewed: Yes I reviewed the patient's radiology results. Chest X-Ray 10/13/17 18:14 IMPRESSION: No acute cardiopulmonary disease D/ / Bryson Alfred MD / Bryson Alfred MD Interpreting Provider: Bryson Alfred MD Abdomen/Pelvis CT 10/13/17 20:58 IMPRESSION: Diffuse pancreatic edema, inflammatory change, and peripancreatic fluid, compatible with acute pancreatitis. No evidence for drainable fluid collection. D/ / John Gan MD / John Gan MD Interpreting Provider: John Gan MD - EKG Data EKG #1 EKG attestation: Yes I reviewed and interpreted this EKG. EKG results narrative: EKG at 1821 shows a sinus rhythm with some ST depressions in V2 and V3. Rate was 69 bpm, ND interval of 140, respiration 105, QTC of 411. This was compared to previous EKG on 06/23/17 at 0602 which showed a sinus rhythm at a rate of 90 bpm
[2017-10-13 18:39] LABS: Basophils % 0.3 %; Eosinophils # 0.3 K/mcL (0.0-0.6); Eosinophils % 3.1 %; Hematocrit 38.2 % (37.5-50.1); Hemoglobin 14.2 g/dL (12.9-16.9); Immature Granulocytes % 0.3 % (0-4); Lymphocytes # 1.9 K/mcL (0.6-4.6); Lymphocytes % 21.8 %; Mean Corpuscular Hemoglobin 28.8 pg (28.0-33.3); Mean Corpuscular Volume 77.5 fL (83.0-100.0); Mean Platelet Volume 11.6 fL (9.4-12.4); Monocytes # 0.7 K/mcL (0.0-1.3); Monocytes % 7.7 %; Neutrophils # 5.7 K/mcL (1.6-8.9); Platelet Count 215 K/mcL (140-400); Red Blood Count 4.93 M/mcL (4.19-5.50); Red Cell Distribution Width 15.1 % (11.5-14.5); Segmented Neutrophils % 66.8 %
[2017-10-13 18:44] LABS: Mean Corpuscular HGB Conc 37.2 g/dL (31.6-35.5)
[2017-10-13 20:38] LABS: Alanine Aminotransferase 16 Units/L (7-52); Albumin 3.5 g/dL (3.5-5.7); Albumin/Globulin Ratio 1.5 (1.1-2.2); Alkaline Phosphatase 85 Units/L (34-104); Aspartate Amino Transferase 19 Units/L (13-39); BUN/Creatinine Ratio 29 (6-26); Bilirubin,Total 0.4 mg/dL (0.3-1.0); Blood Urea Nitrogen 16 mg/dL (6-20); Calcium 8.5 mg/dL (8.6-10.3); Carbon Dioxide 23 mEq/L (23-29); Chloride 108 mEq/L (98-107); Globulin 2.3 g/dL (2.4-3.5); Glucose 96 mg/dL (70-105); Lipase 1284 Units/L (11-82); Osmolality,Calculated 287 (280-300); Potassium 3.2 mEq/L (3.5-5.1); Sodium 138 mEq/L (136-145); Total Protein 5.8 g/dL (6.4-8.9); eGFR For African Americans > 60 (> 60); eGFR For Non-African Americans > 60 (> 60)
[2017-10-14] MEDS ORDERED: Ondansetron 4 MG/2 ML VIAL IVP PRN (03:28)
[2017-10-14] MEDS ORDERED: *HR* Morphine 2 MG/ML SYRINGE IVP PRN (03:28)
[2017-10-14] MEDS ORDERED: Acetaminophen 325 MG TABLET PO PRN (03:28)
[2017-10-14] MEDS ORDERED: Naloxone 0.4 MG/ML INJ IVP PRN (03:28)
[2017-10-14] MEDS ORDERED: *HR* HYDROcodone/Acet 10/325 mg TABLET PO PRN (03:29)
[2017-10-14] MEDS ORDERED: *HR* LORazepam 1 MG TABLET PO PRN (03:29)
[2017-10-14] MEDS ORDERED: Potassium Chloride Elixir 20 MEQ/15 ML UDC PO ONE (03:32)
--- NOTE | 2017-10-14 03:34 | Internal Med History&Physical ---
Date of Encounter: 10/14/17 Time of Encounter: 03:33 Assessment and Plan (1) Pancreatitis, alcoholic, acute Current visit: Yes Status: Acute Patient presented with epigastric abdominal pain and nausea, noted to have elevated serum lipase at 1284. CT abdomen showed changes suggestive of acute pancreatitis. Continue aggressive IV fluid hydration, keep nothing by mouth. Supportive care with when necessary antiemetics, pain control with when necessary IV morphine. No fever or leukocytosis. Monitor and replete electrolytes. Qualifiers: Acute pancreatitis complication: no infection or necrosis Qualified Code(s) : K85.20 - Alcohol induced acute pancreatitis without necrosis or infection (2) Alcohol abuse Current visit: Yes Status: Chronic Monitor for alcohol withdrawal. CIWA protocol as needed. Thiamine and folate supplements. Patient is not motivated to abstain from alcohol. (3) History of DVT (deep vein thrombosis) Current visit: Yes Status: Chronic History of right arm and neck DVT secondary to IV. Continue anticoagulation with Xarelto. (4) Hypertension Current visit: Yes Status: Chronic Qualifiers: Hypertension type: essential hypertension Qualified Code(s): I10 - Essential (primary) hypertension (5) Tobacco abuse Current visit: Yes Status: Chronic Patient is not motivated to quit smoking at this time. Patient declines nicotine transdermal patch. (6) Lung cancer Current visit: Yes Status: Chronic Follows with oncology as outpatient, currently on immunotherapy. Continue supportive care and supplemental oxygen. Qualifiers: Laterality: left Lung location: unspecified part of lung Qualified Code(s ): C34.92 - Malignant neoplasm of unspecified part of left bronchus or lung Internal Medicine - H&P: HPI Chief complaint: Abdominal pain Admitted From: Emergency Dept Plans for Post Hospital Care: Home History of present illness: Mr. Moon is a 52 year old male with h/o- stage 4 lung cancer, alcohol and tobacco abuse, who presents with c/o- abdominal pain. Patient reports a sudden onset of abdominal pain in epigastrium for the last 3 days, gradually progressive, moderate to severe in intensity, nonradiating, associated with nausea and poor oral intake. He also began to have left upper and lower quadrant abdominal pain since yesterday. No fever, chills, diarrhea. He reports drinking 6-12 pack of beer daily, last drink was yesterday. He has had prior admissions for acute pancreatitis. He denies chest pain, has baseline exertional dyspnea due to lung cancer. Past Med Surg Social Fam HX - Past Medical History Medical history: aortic aneurysm, arthritis, cancer (lung), DVT, GERD, hyperlipidemia, hypertension, malignancy, osteoporosis, peripheral artery disease, other Psychiatric history: anxiety, depression, other - Past Surgical History Surgical History: arthroscopy, orthopedic, other (Left knee arthroscopic surgery ), other - Social History Smoking Status: Current every day smoker Smokeless Tobacco Status: No Alcohol use: heavy Drug use: none Occupational status: disabled Current living situation: Home, With Family Activity Level: Independent ambulation Recent Out of Country Travel Within the Last 8 Weeks: No Exposure or Possible Exposure to Illness During Travel: No - Family History Mother Adopted: [place]: Pamela Moon Age: 70 Family Member Ethnicity: Non- Living Status: Still Living Hx Family Cardiac Disorders: Yes Hx Family Respiratory Disorders: No Hx Family Cancer: No Hx Family GI Disorders: No Hx Family Genitourinary Disorders: No Hx Family Endocrine Disorder: No Hx Family Musculoskeletal Disorders: No Hx Family Neuromuscular Disorders: No Hx Family Neurologic Disorders: No Hx Family HEENT Disorders: No Hx Family Autoimmune Disorders: No Hx Family Reproductive Disorders: No Hx Family Psychosocial Disorders: No Hx Family Medical Disorders: No Father Adopted: [place]: Sachin Moon SR Age: 71 Family Member Ethnicity: Non- Living Status: Still Living Hx Family Cardiac Disorders: Yes (HTN) Hx Family Respiratory Disorders: No Hx Family Cancer: Yes Hx Family GI Disorders: No Hx Family Genitourinary Disorders: No Hx Family Endocrine Disorder: No Hx Family Musculoskeletal Disorders: No Hx Family Neuromuscular Disorders: No Hx Family Neurologic Disorders: No Hx Family HEENT Disorders: No Hx Family Autoimmune Disorders: No Hx Family Reproductive Disorders: No Hx Family Psychosocial Disorders: No Hx Family Medical Disorders: No Brother Adopted: [place]: Emily Moon Age: 44 Family Member Ethnicity: Non- Living Status: Age at : 44 Cause of : Lung Cancer Hx Family Cardiac Disorders: Yes Hx Family Respiratory Disorders: No Hx Family Cancer: Yes Hx Family GI Disorders: No Hx Family Genitourinary Disorders: No Hx Family Endocrine Disorder: No Hx Family Musculoskeletal Disorders: No Hx Family Neuromuscular Disorders: No Hx Family Neurologic Disorders: No Hx Family HEENT Disorders: No Hx Family Autoimmune Disorders: No Hx Family Reproductive Disorders: No Hx Family Psychosocial Disorders: No Hx Family Medical Disorders: No Internal Medicine - H&P: Meds amLODIPine [Norvasc] 5 mg PO DAILY 09/17/16 [History] Lidocaine/Prilocaine CREAM [Emla] 1 gm TP AD 01/22/17 [History] Megestrol Acetate [Megace] 10 ml PO DAILY PRN 01/22/17 [History] Magic Mouthwash [Magic Mouthwash BLM] 10 ml PO TID PRN #240 mls 05/05/17 [Rx] Docusate [Colace] 100 mg PO BID PRN #60 capsule 05/20/17 [Rx] Sertraline [Zoloft] 50 mg PO DAILY 06/22/17 [History] Crizotinib [Xalkori] 250 mg PO BID #60 capsule 07/22/17 [Rx] Alectinib HCl [Alecensa] 450 mg PO BID #180 capsule 09/14/17 [Rx] Ondansetron HCl 8 mg PO Q8H PRN #90 tablet 09/14/17 [Rx] Prochlorperazine Maleate [Compazine] 10 mg PO Q8HR PRN #30 tablet 09/14/17 [Rx] Rivaroxaban [Xarelto] 20 mg PO DAILY #30 tablet 09/14/17 [Rx] Varenicline Tartrate [Chantix Continuing Months Pack] 1 mg PO BID #60 tablet [Rx] Omeprazole 20 mg PO BID #60 tablet. 09/28/17 [Rx] HYDROcodone/Acet 10/325 mg [[place] 10-325 mg] 1 tab PO Q6HR PRN #90 tab 10/07/17 [Rx] LORazepam [Ativan] 1 mg PO Q6HR PRN #60 tablet 10/07/17 [Rx] 3 Allergy/AdvReac Type Severity Reaction Status Date / Time benazepril Allergy Swelling Verified 09/28/17 11:13 of Lip/Tongue/Throat meloxicam Allergy Swelling Verified 09/28/17 11:13 of Lip/Tongue/Throat All Systems PM: A 10-system review of systems was performed and is negative for pertinent findings except as documented above in the HPI. - Constitutional Constitutional: no chills, no fever(s), no night sweats - EENT Eyes: no change in vision, no discharge, no pain, no photophobia Ears: no ear discharge, no ear pain, no tinnitus Nose, mouth and throat: no dysphagia, no nasal discharge, no neck pain, no sore throat - Cardiovascular Cardiovascular ROS IM: no chest pain, no diaphoresis, no dyspnea, no lightheadedness, no palpitations, no syncope - Respiratory Respiratory: dyspnea, no cough, no wheezing, no excessive phlegm production - Gastrointestinal Gastrointestinal: abdominal pain, nausea - Musculoskeletal Musculoskeletal ROS IM: no numbness, no tingling - Integumentary Integumentary IM: no rash, no unusual bruising - Neurological Neurological ROS: no confusion, no convulsions, no focal weakness, no numbness, no tingling, no tremor(s) - Hematologic/Lymphatic Hematologic/Lymphatic: no easy bruising - Constitutional Vitals: Temp Pulse Resp BP Pulse Ox 98.0 F 65 16 142/91 93 10/14/17 00:32 10/14/17 00:32 10/14/17 00:32 10/14/17 00:32 10/14/17 00:32 General appearance: Present: A&O X 3, answers questions appropriately - Respiratory Respiratory exam: Present: CTAB. Absent: accessory muscle use, rales, rhonchi, wheezes - Cardiovascular Cardiovascular exam: Present: RRR, +S1, +S2. Absent: diastolic murmur, gallop, rubs, systolic murmur - GI/Abdominal GI/Abdominal exam: Present: normal bowel sounds, soft (tenderness in epigastrium , LUQ, LLQ), no peritoneal signs. Absent: distended, tenderness - Extremities Exam Extremities exam: Present: full ROM, warm, radial pulses palpable and symmetrical. Absent: calf tenderness, cyanotic, pedal edema - Neurological Exam Neurological exam: Present: CN II-XII intact, oriented X3, no focal deficits. Absent: pronater drift, facial droop, speech deficit - Skin Skin exam: Present: dry, intact Internal Med - H&P Results - Labs CBC & Chem 7: 10/14/17 04:27 10/14/17 04:27
[2017-10-14] MEDS: 0.9 % Sodium Chloride 1,000 ML IVC SCH (04:21)
[2017-10-14 05:05] LABS: BUN/Creatinine Ratio 30 (6-26); Blood Urea Nitrogen 15 mg/dL (6-20); Calcium 8.7 mg/dL (8.6-10.3); Carbon Dioxide 25 mEq/L (23-29); Chloride 106 mEq/L (98-107); Chol/HDL Ratio 3.2 (0-4.9); Cholesterol 172 mg/dL (< 200); Glucose 102 mg/dL (70-105); HDL Cholesterol 53 mg/dL (40-59); LDL Cholesterol,Calculated 101 mg/dL (0-99); Magnesium 1.5 mg/dL (1.6-2.6); Osmolality,Calculated 285 (280-300); Potassium 3.4 mEq/L (3.5-5.1); Sodium 137 mEq/L (136-145); Triglycerides 88 mg/dL (< 150); eGFR For African Americans > 60 (> 60); eGFR For Non-African Americans > 60 (> 60)
[2017-10-14 05:11] LABS: Basophils % 0.4 %; Eosinophils # 0.2 K/mcL (0.0-0.6); Eosinophils % 2.8 %; Hematocrit 36.3 % (37.5-50.1); Hemoglobin 13.3 g/dL (12.9-16.9); Immature Granulocytes % 0.2 % (0-4); Immature Platelets 10.6 % (1.1-6.1); Lymphocytes # 1.5 K/mcL (0.6-4.6); Lymphocytes % 18.1 %; Mean Corpuscular HGB Conc 36.6 g/dL (31.6-35.5); Mean Corpuscular Hemoglobin 28.4 pg (28.0-33.3); Mean Corpuscular Volume 77.6 fL (83.0-100.0); Mean Platelet Volume 11.2 fL (9.4-12.4); Monocytes # 0.8 K/mcL (0.0-1.3); Monocytes % 9.4 %; Neutrophils # 5.6 K/mcL (1.6-8.9); Platelet Count 179 K/mcL (140-400); Red Blood Count 4.68 M/mcL (4.19-5.50); Red Cell Distribution Width 15.2 % (11.5-14.5); Segmented Neutrophils % 69.1 %
[2017-10-14] MEDS ORDERED: Lidocaine 4% CREAM (LMX) 5 GM TP ONE (07:56)
[2017-10-14] MEDS: [UNRECOGNIZED DRUG - OTHER] PO SCH ×2 (08:02→20:44)
[2017-10-14] MEDS: *HR* Rivaroxaban 10 MG TABLET PO SCH (08:30)
[2017-10-14] MEDS: amLODIPine 5 MG TABLET PO SCH (08:30)
[2017-10-14] MEDS: Folic Acid 1 MG TABLET PO SCH (08:30)
[2017-10-14] MEDS: Thiamine (B-1) 100 MG TABLET PO SCH (08:30)
--- NOTE | 2017-10-14 13:08 | Internal Med Progress Note ---
Date of Encounter: 10/14/17 Time of Encounter: 10:35 - Assessment and plan (1) Pancreatitis, alcoholic, acute Current Visit: Yes Status: Acute Assessment and plan: Continue with IV fluids. We will start him on clear liquid trials today. Continue with pain control. Continue with Zofran when necessary. This is likely to be stemming from alcohol. However, I will check a right upper quadrant ultrasound as he has had gallstones mentioned on previous imaging. Qualifiers: Acute pancreatitis complication: no infection or necrosis Qualified Code(s) : K85.20 - Alcohol induced acute pancreatitis without necrosis or infection (2) Alcohol abuse Current Visit: Yes Status: Chronic Assessment and plan: The patient has been counseled. He is showing no signs of his goals. We will add CIWA protocol if he is showing any signs. (3) History of DVT (deep vein thrombosis) Current Visit: Yes Status: Chronic Assessment and plan: Continue with Xarelto (4) Tobacco abuse Current Visit: Yes Status: Chronic Assessment and plan: The patient has been counseled. He is not interested in nicotine patch. (5) Lung cancer Current Visit: Yes Status: Chronic Assessment and plan: stage IV cancer. He follows up with an oncologist. Has been diagnosed since 2016. He is currently on a new chemotherapy pill. Qualifiers: Laterality: left Lung location: unspecified part of lung Qualified Code(s ): C34.92 - Malignant neoplasm of unspecified part of left bronchus or lung (6) Hypertension Current Visit: Yes Status: Chronic Assessment and plan: Blood pressure is stable on Norvasc Qualifiers: Hypertension type: essential hypertension Qualified Code(s): I10 - Essential (primary) hypertension (7) DVT prophylaxis Current Visit: No Status: Acute Assessment and plan: Xarelto - Subjective Interval history: No acute events. The patient's pain is much better. He has been afebrile. He has been nothing by mouth. He is not feeling nauseous. He tells me that he is a binge drinker. 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 - Constitutional Vitals: Temp Pulse Resp BP Pulse Ox 98.5 F 60 24 141/88 96 10/14/17 07:25 10/14/17 07:25 10/14/17 07:25 10/14/17 07:25 10/14/17 08:49 General appearance: Present: A&O X 3, answers questions appropriately Exam: GEN: NAD CVS: RRR. S1, S2, No m/r/g RESP: CTAB ABD: Soft, minimal epigastric tenderness. No rebound tenderness., ND, +BS EXT: No edema. 2+ DP. No rashes NEURO: Nonfocal Internal Medicine: Result - Labs CBC & Chem 7: 10/14/17 04:27 10/14/17 04:27 - Impressions Impressions Gallbladder Ultrasound 10/14/17 09:46 IMPRESSION: 1. Nonvisualization of the pancreas. No evidence of a peripancreatic fluid collection. 2. Trace perihepatic free fluid. D/ / Satish Levine MD / Satish Levine MD Interpreting Provider: Satish Levine MD Consult Discharge Plan - Plan Referrals: Ivana Weston CRYST[employer]YR[employer] MAKER [Primary Care Provider] -
[2017-10-14] MEDS: *HR* HYDROcodone/Acet 10/325 mg TABLET PO PRN (17:17)
[2017-10-15] MEDS: *HR* HYDROcodone/Acet 10/325 mg TABLET PO PRN ×3 (05:31→22:05)
[2017-10-15 06:08] LABS: Basophils % 0.6 %; Eosinophils # 0.3 K/mcL (0.0-0.6); Eosinophils % 4.2 %; Hematocrit 36.3 % (37.5-50.1); Hemoglobin 13.2 g/dL (12.9-16.9); Immature Granulocytes % 0.3 % (0-4); Lymphocytes # 1.8 K/mcL (0.6-4.6); Lymphocytes % 27.5 %; Mean Corpuscular HGB Conc 36.4 g/dL (31.6-35.5); Mean Corpuscular Hemoglobin 28.3 pg (28.0-33.3); Mean Corpuscular Volume 77.9 fL (83.0-100.0); Mean Platelet Volume 12.1 fL (9.4-12.4); Monocytes # 0.7 K/mcL (0.0-1.3); Monocytes % 10.7 %; Neutrophils # 3.8 K/mcL (1.6-8.9); Platelet Count 199 K/mcL (140-400); Red Blood Count 4.66 M/mcL (4.19-5.50); Red Cell Distribution Width 15.2 % (11.5-14.5); Segmented Neutrophils % 56.7 %
[2017-10-15 06:45] LABS: BUN/Creatinine Ratio 13 (6-26); Blood Urea Nitrogen 7 mg/dL (6-20); Calcium 8.9 mg/dL (8.6-10.3); Carbon Dioxide 30 mEq/L (23-29); Chloride 106 mEq/L (98-107); Glucose 108 mg/dL (70-105); Lipase 650 Units/L (11-82); Osmolality,Calculated 287 (280-300); Potassium 3.8 mEq/L (3.5-5.1); Sodium 139 mEq/L (136-145); eGFR For African Americans > 60 (> 60); eGFR For Non-African Americans > 60 (> 60)
[2017-10-15] MEDS: 0.9 % Sodium Chloride 1,000 ML IVC SCH ×3 (07:19→18:31)
[2017-10-15] MEDS: Folic Acid 1 MG TABLET PO SCH (10:04)
[2017-10-15] MEDS: Thiamine (B-1) 100 MG TABLET PO SCH (10:04)
[2017-10-15] MEDS: *HR* Rivaroxaban 10 MG TABLET PO SCH (10:04)
[2017-10-15] MEDS: amLODIPine 5 MG TABLET PO SCH (10:04)
[2017-10-15] MEDS: [UNRECOGNIZED DRUG - OTHER] PO SCH ×2 (10:05→20:40)
--- NOTE | 2017-10-15 13:30 | Internal Med Progress Note ---
Date of Encounter: 10/15/17 Time of Encounter: 11:20 - Assessment and plan (1) Pancreatitis, alcoholic, acute Current Visit: Yes Status: Acute Assessment and plan: Continue with IV fluids. Advance diet to full liquid. Continue with pain control. Continue with Zofran when necessary. This is likely to be stemming from alcohol. right upper quadrant ultrasound is most unremarkable. Qualifiers: Acute pancreatitis complication: no infection or necrosis Qualified Code(s) : K85.20 - Alcohol induced acute pancreatitis without necrosis or infection (2) Alcohol abuse Current Visit: Yes Status: Chronic Assessment and plan: The patient has been counseled. He is showing no signs of his goals. We will add CIWA protocol if he is showing any signs. (3) History of DVT (deep vein thrombosis) Current Visit: Yes Status: Chronic Assessment and plan: Continue with Xarelto (4) Tobacco abuse Current Visit: Yes Status: Chronic Assessment and plan: The patient has been counseled. He is not interested in nicotine patch. (5) Lung cancer Current Visit: Yes Status: Chronic Assessment and plan: stage IV cancer. He follows up with an oncologist. Has been diagnosed since 2016. He is currently on a new chemotherapy pill. Qualifiers: Laterality: left Lung location: unspecified part of lung Qualified Code(s ): C34.92 - Malignant neoplasm of unspecified part of left bronchus or lung (6) Hypertension Current Visit: Yes Status: Chronic Assessment and plan: Blood pressure is stable on Norvasc Qualifiers: Hypertension type: essential hypertension Qualified Code(s): I10 - Essential (primary) hypertension (7) DVT prophylaxis Current Visit: No Status: Acute Assessment and plan: Xarelto - Subjective Interval history: No acute events. The patient's pain is well-controlled. He tolerated his clear liquid diet. No nausea. He has been afebrile. - Constitutional Vitals: Temp Pulse Resp BP Pulse Ox 97.6 F 59 16 124/79 95 10/15/17 10:25 10/15/17 10:25 10/15/17 10:25 10/15/17 10:25 10/15/17 10:25 General appearance: Present: A&O X 3, answers questions appropriately Exam: GEN: NAD CVS: RRR. S1, S2, No m/r/g RESP: CTAB ABD: Soft, minimal epigastric tenderness. No rebound tenderness., ND, +BS EXT: No edema. 2+ DP. No rashes NEURO: Nonfocal Internal Medicine: Result - Labs CBC & Chem 7: 10/15/17 04:46 10/15/17 04:46 Labs: Short CBC 10/15/17 Range/Units 04:46 WBC 6.7 (4.3-11.1) K/mcL Hgb 13.2 (12.9-16.9) g/dL Hct 36.3 L (37.5-50.1) % Plt Count 199 (140-400) K/mcL Neutrophils # 3.8 (1.6-8.9) K/mcL BMP 10/15/17 04:46 Sodium 139 Potassium 3.8 Chloride 106 Carbon Dioxide 30 H BUN 7 Creatinine 0.55 L Glucose 108 H Calcium 8.9 Consult Discharge Plan - Plan Referrals: Ivana Weston, STUDENT SERVICES REP [Primary Care Provider] - 10/27/17 7:45 am
--- NOTE | 2017-10-15 16:15 | Electrocardiograph Report ---
[address] [place], [place] [address] Test Date: 2017-10-13 Pat Name: Sachin Moon Department: 103 Room: 3A13 Gender: M [employer]: ROWENA : 1965 Requested By: Houston Larkin Order Number: [id number] Reading MD: Aryan Song MD Measurements Intervals [place] Rate: 69 P: 35 DC: 140 QRS: -30 QRSD: 105 T: 5 QT: 393 QTc: 411 Interpretive Statements SINUS RHYTHM BORDERLINE LEFT AXIS DEVIATION ANTERIOR ISCHEMIA Electronically Signed On 10-15-2017 16:13:36 EST by Aryan Song MD
[2017-10-16 05:58] LABS: Basophils % 0.4 %; Eosinophils # 0.3 K/mcL (0.0-0.6); Eosinophils % 5.9 %; Hematocrit 31.5 % (37.5-50.1); Immature Granulocytes % 0.2 % (0-4); Lymphocytes # 1.9 K/mcL (0.6-4.6); Lymphocytes % 40.6 %; Mean Corpuscular HGB Conc 36.8 g/dL (31.6-35.5); Mean Corpuscular Hemoglobin 28.8 pg (28.0-33.3); Mean Corpuscular Volume 78.2 fL (83.0-100.0); Mean Platelet Volume 12.2 fL (9.4-12.4); Monocytes # 0.6 K/mcL (0.0-1.3); Monocytes % 12.8 %; Neutrophils # 1.9 K/mcL (1.6-8.9); Platelet Count 168 K/mcL (140-400); Red Blood Count 4.03 M/mcL (4.19-5.50); Red Cell Distribution Width 14.8 % (11.5-14.5); Segmented Neutrophils % 40.1 %
[2017-10-16 06:03] LABS: BUN/Creatinine Ratio 10 (6-26); Blood Urea Nitrogen 5 mg/dL (6-20); Calcium 8.4 mg/dL (8.6-10.3); Carbon Dioxide 28 mEq/L (23-29); Chloride 109 mEq/L (98-107); Glucose 104 mg/dL (70-105); Osmolality,Calculated 288 (280-300); Potassium 3.5 mEq/L (3.5-5.1); Sodium 140 mEq/L (136-145); eGFR For African Americans > 60 (> 60); eGFR For Non-African Americans > 60 (> 60)
[2017-10-16 06:18] LABS: Hemoglobin 11.6 g/dL (12.9-16.9)
[2017-10-16] MEDS: [UNRECOGNIZED DRUG - OTHER] PO SCH (08:16)
[2017-10-16] MEDS: Thiamine (B-1) 100 MG TABLET PO SCH (08:16)
[2017-10-16] MEDS: amLODIPine 5 MG TABLET PO SCH (08:16)
[2017-10-16] MEDS: *HR* Rivaroxaban 10 MG TABLET PO SCH (08:16)
[2017-10-16] MEDS: Folic Acid 1 MG TABLET PO SCH (08:16)
--- NOTE | 2017-10-16 10:17 | Discharge Summary ---
Date of Encounter: 10/16/17 Time of Encounter: 10:10 - Discharge Diagnosis (1) Pancreatitis, alcoholic, acute Priority: Primary Status: Acute Qualifiers: Acute pancreatitis complication: no infection or necrosis Qualified Code(s) : K85.20 - Alcohol induced acute pancreatitis without necrosis or infection (2) Alcohol abuse Priority: Secondary Status: Chronic (3) History of DVT (deep vein thrombosis) Priority: Secondary Status: Chronic (4) Hypertension Priority: Secondary Status: Chronic Qualifiers: Hypertension type: essential hypertension Qualified Code(s): I10 - Essential (primary) hypertension (5) Lung cancer Priority: Secondary Status: Chronic Qualifiers: Laterality: left Lung location: unspecified part of lung Qualified Code(s ): C34.92 - Malignant neoplasm of unspecified part of left bronchus or lung (6) Tobacco abuse Priority: Secondary Status: Chronic (7) DVT prophylaxis Priority: Secondary Status: Acute - Discharge Medications Home Medications: amLODIPine [Norvasc] 5 mg PO DAILY 09/17/16 [History] Lidocaine/Prilocaine CREAM [Emla] 1 gm TP AD 01/22/17 [History] Docusate [Colace] 100 mg PO BID PRN #60 capsule 05/20/17 [Rx] Sertraline [Zoloft] 50 mg PO DAILY 06/22/17 [History] Alectinib HCl [Alecensa] 450 mg PO BID #180 capsule 09/14/17 [Rx] Ondansetron HCl 8 mg PO Q8H PRN #90 tablet 09/14/17 [Rx] Prochlorperazine Maleate [Compazine] 10 mg PO Q8HR PRN #30 tablet 09/14/17 [Rx] Rivaroxaban [Xarelto] 20 mg PO DAILY #30 tablet 09/14/17 [Rx] Varenicline Tartrate [Chantix Continuing Months Pack] 1 mg PO BID #60 tablet [Rx] Omeprazole 20 mg PO BID #60 tablet. 09/28/17 [Rx] HYDROcodone/Acet 10/325 mg [[place] 10-325 mg] 1 tab PO Q6HR PRN #90 tab 10/07/17 [Rx] LORazepam [Ativan] 1 mg PO Q6HR PRN #60 tablet 10/07/17 [Rx] Dexamethasone [Decadron] 4 mg PO AD 10/14/17 [History] Folic Acid 1 mg PO DAILY 10/14/17 [History] Allergies/Adverse Reactions: 3 Allergy/AdvReac Type Severity Reaction Status Date / Time benazepril Allergy Swelling Verified 09/28/17 11:13 of Lip/Tongue/Throat meloxicam Allergy Swelling Verified 09/28/17 11:13 of Lip/Tongue/Throat Procedures/tests Complete & Pending: Procedures Performed prior 72 hours Category Date Time Status US gall bladder [US] Stat Exams 10/14/17 09:46 Completed Date of admission: 10/14/17 04:37 Primary care physician: Guy Gibbs Discharging clinician: Angela Mayer - Patient Status Disposition: Home, Self-Care Condition: Good Functional capacity at discharge: independent ambulation Overall status at discharge: patient is progressing back to baseline - Discharge Instructions Follow Up With: Ivana Weston, ASSISTANT VICE PRESIDENT [Primary Care Provider] - 10/27/17 7:45 am - Diet and Activity Activity: increase activity as tolerated Diet: advance to your usual diet Hospital course: Mr. Moon is a 52 year old male with h/o- stage 4 lung cancer, alcohol and tobacco abuse, who presents with c/o- abdominal pain. Patient reports a sudden onset of abdominal pain in epigastrium for the last 3 days prior to admission, gradually progressive, moderate to severe in intensity, nonradiating, associated with nausea and poor oral intake. No fever, chills, diarrhea. He reports drinking 6-12 pack of beer daily, last drink was one day prior to admission. He has had prior admissions for pancreatitis. He denies chest pain , has baseline exertional dyspnea due to lung cancer. A CT abdomen and pelvis was done with findings consistent with acute pancreatitis. Lipase on admission was elevated at 1284. He was started on aggressive IV fluid hydration, kept nothing by mouth, and treated supportively with antiemetics and pain control as needed. He did not have any fevers or leukocytosis. The right upper quadrant ultrasound was done that showed trace perihepatic free fluid but no gallbladder wall thickening, no cholelithiasis. Patient is alcoholic he was monitored for any signs of withdrawal. Continue protocol was begun He did not show any signs of alcohol withdrawal and did not need any benzodiazepines. Patient's pain did start to improve, he started his diuretics to clear and advanced to full liquids without issue. Patient will like his pain was well-controlled, advance his diet and appetite has been good. He was discharged home in stable condition. - Time Spent with Patient Total time spent providing and/or coordinating discharge services: - Constitutional Vitals: Temp Pulse Resp BP Pulse Ox 98.2 F 64 16 142/82 94 10/16/17 06:56 10/16/17 06:56 10/16/17 06:56 10/16/17 06:56 10/16/17 06:56 Exam: GEN: NAD CVS: RRR. S1, S2, No m/r/g RESP: CTAB ABD: Soft, minimal epigastric tenderness. No rebound tenderness., ND, +BS EXT: No edema. 2+ DP. No rashes
[2017-10-16 10:34] VITALS: BP 143/83
== END 2017-10-16 12:28 | disposition home or self-care (01) | DRG 282 ==
LOC: 3ANU 15:53 → EMEROO 15:53 → 3ANU 23:54
PROVIDERS: ADMIT Internal Medicine; ATTEND Internal Medicine

== ENCOUNTER 2017-12-27 11:35 | Inpatient (IN) ==
[2017-12-27] MEDS ORDERED: 0.9 % Sodium Chloride 500 ML IVC ONE (11:45)
[2017-12-27] MEDS ORDERED: Aspirin 81 MG TAB.CHEW PO ONE (11:45)
[2017-12-27] MEDS ORDERED: Nitroglycerin 0.4 MG TAB.SUBL SL ONE (11:45)
[2017-12-27] MEDS ORDERED: Ondansetron 4 MG/2 ML VIAL IVP ONE (11:48)
--- NOTE | 2017-12-27 11:50 | Emergency Department Note ---
Disposition Clinical Impression: Alcohol abuse Lung cancer Qualifiers: Laterality: unspecified laterality Lung location: unspecified part of lung Qualified Code(s): C34.90 - Malignant neoplasm of unspecified part of unspecified bronchus or lung Chest pain Qualifiers: Chest pain type: unspecified Qualified Code(s): R07.9 - Chest pain, unspecified Pancreatitis Qualifiers: Chronicity: acute Pancreatitis type: unspecified pancreatitis type Acute pancreatitis complication: unspecified Qualified Code(s): K85.90 - Acute pancreatitis without necrosis or infection, unspecified Disposition: Home, Self-Care Condition: Good Time of Disposition: 15:00 Chest Pain HPI - General Chief Complaint: ED Chest Pain Stated Complaint: CP Time Seen by Provider: 12/27/17 11:44 Source: patient Mode of arrival: ambulatory Limitations: no limitations Vital Signs Reviewed: Yes Nursing Notes Reviewed: Yes - History of Present Illness HPI Narrative: 52-year-old male history of stage IV lung cancer dx 2016 currently undergoing chemotherapy presents for evaluation of chest pain. Patient states symptom onset is been over the past couple days. Patient's noted some left lower chest wall pain. Patient does not know any radicular symptoms. Patient's symptoms appeared to be nonexertional. Patient did note some diaphoresis as well as vomiting this morning. Patient notes chronic dyspnea as well as cough. No notable fevers. Patient denies any abdominal pain. Patient denies any other symptoms. Patient does have history of hypertension however denies any history of heart attacks or heart disease. Patient is also on Xarelto. Severity scale (1-10): 7 - Related Data Home Medications Medication Instructions Recorded Confirmed amLODIPine [Norvasc] 5 mg PO DAILY 09/17/16 12/27/17 Lidocaine/Prilocaine CREAM [Emla] 1 gm TP AD 01/22/17 12/27/17 Sertraline [Zoloft] 50 mg PO DAILY 06/22/17 12/27/17 Previous Rx's Medication Instructions Recorded Docusate [Colace] 100 mg PO BID PRN #60 capsule 05/20/17 Prochlorperazine Maleate 10 mg PO Q8HR PRN #30 tablet 09/14/17 [Compazine] Omeprazole 20 mg PO BID #60 tablet. 09/28/17 Alectinib HCl [Alecensa] 600 mg PO BID #240 capsule 10/28/17 HYDROcodone/Acet 10/325 mg [[place] 1 tab PO Q6HR PRN 30 Days #90 tab 11/30/17 10-325 mg] LORazepam [Ativan] 1 mg PO Q6HR PRN 30 Days #60 tablet 11/30/17 Ondansetron HCl 8 mg PO Q8H PRN #90 tablet 12/18/17 Rivaroxaban [Xarelto] 20 mg PO DAILY #30 tablet 12/18/17 Allergies Allergy/AdvReac Type Severity Reaction Status Date / Time benazepril Allergy Swelling Verified 12/27/17 12:44 of Lip/Tongue/Throat meloxicam Allergy Swelling Verified 12/27/17 12:44 of Lip/Tongue/Throat All systems ED: reviewed and negative except as stated. Constitutional: Denies: fever Cardiovascular: Reports: chest pain Respiratory: Reports: cough, dyspnea. Denies: sputum production Gastrointestinal: Reports: nausea, vomiting. Denies: abdominal pain Chest Pain PMH - Past Medical History Medical history: Reports: arthritis, cancer, DVT, GERD, hypertension, malignancy , osteoporosis, other Surgical history: Reports: arthroscopy, orthopedic, other (Left knee arthroscopic surgery), other Psychiatric history: Reports: anxiety, depression, other - Social History Smoking Status: Former smoker Alcohol use: Reports: heavy Drug use: Reports: none Physical Exam - General Limitations: no limitations General appearance: alert, in no apparent distress - Head Head exam: atraumatic, normocephalic, normal inspection - Eye Eye exam: Present: normal appearance, PERRL, EOMI - ENT ENT exam: normal exam, normal oropharynx, mucous membranes moist - Neck Neck exam: Present: normal inspection - Chest Chest inspection: Present: normal inspection, symmetric chest wall rise - Respiratory Respiratory exam: Present: normal lung sounds bilaterally. Absent: respiratory distress - Cardiovascular Cardiovascular exam: Present: regular rate, normal rhythm. Absent: systolic murmur - Abdominal Exam Abdominal exam: Present: soft, Non-Tender. Absent: guarding, rebound - Extremities Exam Extremities exam: Present: normal inspection. Absent: pedal edema - Back Exam Back exam: Present: normal inspection - Neurological Exam Neurological exam: Present: alert, oriented X3 - Skin Skin exam: Present: warm, dry, intact, normal color Course Course Narrative: will get a cardiac evaluation including a CTA of the chest, abdomen and pelvis. Patient will also get basic lab work including electrolytes, troponin BNP. Disposition likely admission. Patient had an echo obtained last year with an EF of 65% however there is no recent stress test or cardiac evaluation. - Reevaluation(s) Reevaluation #1: Patient got relief after nitroglycerin. Time: 12:09 Reevaluation #2: Patient seen and examined. Patient denies any pain at this time. Patient does have an alcoholic history where he drinks 6-12 packs of beer a day. Patient does have a history of pancreatitis related to his alcohol abuse. Patient states this pain is slightly different than his pancreatic pain in the past. Time: 13:00 Vital Signs Temperature 98.1 F 12/27/17 11:36 Pulse Rate 71 12/27/17 11:36 Respiratory Rate 24 12/27/17 11:36 Blood Pressure 152/104 12/27/17 11:36 O2 Sat by Pulse Oximetry 95 12/27/17 11:36 Temperature 98.1 F 12/27/17 11:36 Pulse Rate 61 12/27/17 12:52 Respiratory Rate 14 12/27/17 12:52 Blood Pressure 120/85 12/27/17 12:52 O2 Sat by Pulse Oximetry 95 12/27/17 12:52 Oxygen Delivery Oxygen Delivery Nasal Cannula Chest Pain - MDM Narrative Medical decision making narrative: Patient's workup in the emergency department shows pancreatitis, likely secondary to alcohol use. Patient did get relief from nitroglycerin has been having slightly different pain in his chest other than the pancreatitis pain. Concerns of possible ACS. Patient's troponins negative. Patient has no acute changes on EKG. Patient's imaging studies reviewed. Patient will be admitted to hospital service for further evaluation monitoring of his ACS evaluation. - Lab Data Lab results reviewed: Yes I reviewed the patient's lab results. Result diagrams: 12/27/17 11:53 12/27/17 11:53 Lab Results 12/27/17 12/27/17 12/27/17 Range/Units 11:53 11:53 11:53 WBC (4.3-11.1) K/mcL RBC (4.19-5.50) M/mcL Hgb (12.9-16.9) g/dL Hct (37.5-50.1) % MCV (83.0-100.0) fL MCH (28.0-33.3) pg MCHC (31.6-35.5) g/dL RDW (11.5-14.5) % Plt Count (140-400) K/mcL MPV (9.4-12.4) fL Immature Gran % (0-4) % Seg Neutrophils % % Lymphocytes % % Monocytes % % Eosinophils % % Basophils % % Neutrophils # (1.6-8.9) K/mcL Lymphocytes # (0.6-4.6) K/mcL Monocytes # (0.0-1.3) K/mcL Eosinophils # (0.0-0.6) K/mcL Basophils # (0.0-0.2) K/mcL PT 16.4 H (9.4-12.1) Seconds INR 1.5 APTT 40.0 H (26.0-36.0) Seconds Sodium (136-145) mEq/L Potassium (3.5-5.1) mEq/L Chloride (98-107) mEq/L Carbon Dioxide (23-29) mEq/L BUN (6-20) mg/dL Creatinine (0.70-1.30) mg/dL Est GFR ( Amer) (> 60) Est GFR (Non-Af Amer) (> 60) BUN/Creatinine Ratio (6-26) Glucose (70-105) mg/dL Calculated Osmolality (280-300) Calcium (8.6-10.3) mg/dL Troponin I (< 0.04) ng/mL B-Natriuretic Peptide 20 (Less than 100) pg/mL Lipase 411 H (11-82) Units/L 12/27/17 12/27/17 Range/Units 11:53 11:53 WBC 7.7 (4.3-11.1) K/mcL RBC 5.11 (4.19-5.50) M/mcL Hgb 14.6 (12.9-16.9) g/dL Hct 41.1 (37.5-50.1) % MCV 80.4 L (83.0-100.0) fL MCH 28.6 (28.0-33.3) pg MCHC 35.5 (31.6-35.5) g/dL RDW 14.9 H (11.5-14.5) % Plt Count 231 (140-400) K/mcL MPV 11.7 (9.4-12.4) fL Immature Gran % 0.3 (0-4) % Seg Neutrophils % 68.8 % Lymphocytes % 20.1 % Monocytes % 7.8 % Eosinophils % 2.6 % Basophils % 0.4 % Neutrophils # 5.3 (1.6-8.9) K/mcL Lymphocytes # 1.5 (0.6-4.6) K/mcL Monocytes # 0.6 (0.0-1.3) K/mcL Eosinophils # 0.2 (0.0-0.6) K/mcL Basophils # 0.0 (0.0-0.2) K/mcL PT (9.4-12.1) Seconds INR APTT (26.0-36.0) Seconds Sodium 135 L (136-145) mEq/L Potassium 3.5 (3.5-5.1) mEq/L Chloride 102 (98-107) mEq/L Carbon Dioxide 29 (23-29) mEq/L BUN 18 (6-20) mg/dL Creatinine 0.77 (0.70-1.30) mg/dL Est GFR ( Amer) > 60 (> 60) Est GFR (Non-Af Amer) > 60 (> 60) BUN/Creatinine Ratio 23 (6-26) Glucose 121 H (70-105) mg/dL Calculated Osmolality 283 (280-300) Calcium 9.5 (8.6-10.3) mg/dL Troponin I < 0.03 (< 0.04) ng/mL B-Natriuretic Peptide (Less than 100) pg/mL Lipase (11-82) Units/L - Radiology Data Radiology results reviewed: Yes I reviewed the patient's radiology results. Chest X-Ray 12/27/17 11:45 IMPRESSION: No acute cardiopulmonary disease. D/ / 12/27/2017 12:11:41 Paul Marvin MD / bcarter Interpreting Provider: Paul Marvin MD Chest CTA 12/27/17 11:46 IMPRESSION: No CT evidence of pulmonary embolism. Acute uncomplicated pancreatitis. Continued interval decrease in size left upper lobe pulmonary nodules, some with calcification, likely related to granulomatous disease. D/ / Anyi Atkinson Cha, MD / Anyi Atkinson Cha, MD Interpreting Provider: Anyi Atkinson Cha, MD Abdomen/Pelvis CT 12/27/17 11:52 IMPRESSION: No CT evidence of pulmonary embolism. Acute uncomplicated pancreatitis. Continued interval decrease in size left upper lobe pulmonary nodules, some with calcification, likely related to granulomatous disease. D/ / Anyi Atkinson Cha, MD / Anyi Atkinson Cha, MD Interpreting Provider: Anyi Atkinson Cha, MD - EKG Data EKG attestation: Yes I reviewed and interpreted this EKG. EKG shows normal: sinus rhythm Rate: normal Rhythm: NSR [place]/QRS: left axis deviation T wave inversions noted in: III, v1, v2, v3, v4 Interpretation: unchanged when compared to prior tracing (date), nonspecific ST- T wave changes Heart Score - Score History: Moderately Suspicious EKG: Non Specific repolarisation Disturbance Age: 45-65 Risk Factors: 1-2 risk factors Troponin: Less than normal limit HEART Score Total: 4 S.B.A.Hugo - S.B.A.RHayley Situation: Demographics Background: Presenting Complaint Assessment: Vital Signs, Course and respsone to treatment, Patient/Family Expectation Recommendation: Barrier(s) to disposition, Recommendation based on pending studies, treatments, or consults S.B.A.RHayley Report Given to: Dr. Staci VargasBHayleyALeda Repor Time: 14:31 Attestation Statement - Attestation Attestation: I, Tristin Frias DO, examined this patient [id number] and my medical decision-making was reviewed with Dr. Elder Galarza, Resident Physician. I agree with the documented findings, disposition and treatment plan as described except to the extent set forth below. Please see my progress notes for details. 52-year-old male presents to the emergency room with complaint of left-sided chest pain in the left upper abdomen. Patient has known small cell lung cancer. He has no metastases it is aware of at this time. Patient has had chemotherapy over the last several weeks. He denies any progression of his symptoms. Patient has had chronic pancreatitis secondary to alcoholism. He denies any fevers or chills nausea vomiting or diarrhea. Denies any headaches or vision change. Denies any shortness of breath. His main complaint is left- sided chest pain that appears to have been present on-and-off over the last 3 days. On arrival here, patient does have pain in his chest wall. Physical exam shows a well-appearing gentleman is no apparent distress. He is on Xarelto at this time. Screening labs including CBC chemistry correlation studies liver function testing troponin and BNP ordered at this time. Patient will have IV access obtained fluid hydration will be given and patient last CT angiography of the chest and abdomen to rule out concern for dissection, aneurysm, pulmonary emboli, metastases at this point. Patient's vital signs are unremarkable this point. Pain medication fluids and nausea medication will be given. Home medications were reviewed at the bedside by myself and the patient and family. Patient has potential to critical illness at this point despite being hemodynamically stable. We will continue to monitor in the emergency room and treat symptoms as needed. Disposition will be determined once the workup and treatment course are established. See detailed documentation of the physical exam, medical intervention, medical decision- making and disposition and the resident physician's note. No critical care problems patient's treatment course. 1325 Patient found to have uncomplicated pancreatitis based on CT scan. Assess interval resolution of left lower lobe nodule. Patient is otherwise clinical stable. Vital signs remained unremarkable. Patient's lipase is slightly elevated but not acutely elevated for him at this time. Patient is more concerning for cardiac related symptoms. He did have complete resolution of the symptoms after nitroglycerin was provided. Patient is otherwise clinically stable. Patient will be admitted for further management and treatment course.
[2017-12-27 11:59] LABS: Basophils % 0.4 %; Eosinophils # 0.2 K/mcL (0.0-0.6); Eosinophils % 2.6 %; Hematocrit 41.1 % (37.5-50.1); Hemoglobin 14.6 g/dL (12.9-16.9); Immature Granulocytes % 0.3 % (0-4); Lymphocytes # 1.5 K/mcL (0.6-4.6); Lymphocytes % 20.1 %; Mean Corpuscular HGB Conc 35.5 g/dL (31.6-35.5); Mean Corpuscular Hemoglobin 28.6 pg (28.0-33.3); Mean Corpuscular Volume 80.4 fL (83.0-100.0); Mean Platelet Volume 11.7 fL (9.4-12.4); Monocytes # 0.6 K/mcL (0.0-1.3); Monocytes % 7.8 %; Neutrophils # 5.3 K/mcL (1.6-8.9); Platelet Count 231 K/mcL (140-400); Red Blood Count 5.11 M/mcL (4.19-5.50); Red Cell Distribution Width 14.9 % (11.5-14.5); Segmented Neutrophils % 68.8 %
[2017-12-27 12:04] LABS: INR 1.5; Prothrombin Time 16.4 Seconds (9.4-12.1)
[2017-12-27 12:29] LABS: BUN/Creatinine Ratio 23 (6-26); Blood Urea Nitrogen 18 mg/dL (6-20); Calcium 9.5 mg/dL (8.6-10.3); Carbon Dioxide 29 mEq/L (23-29); Chloride 102 mEq/L (98-107); Glucose 121 mg/dL (70-105); Osmolality,Calculated 283 (280-300); Potassium 3.5 mEq/L (3.5-5.1); Sodium 135 mEq/L (136-145); eGFR For African Americans > 60 (> 60); eGFR For Non-African Americans > 60 (> 60)
[2017-12-27 12:31] LABS: Troponin I < 0.03 ng/mL (< 0.04)
[2017-12-27] MEDS ORDERED: *HR* LORazepam 2 MG/ML VIAL IVP PRN ×3 (14:52)
[2017-12-27] MEDS ORDERED: *HR* Promethazine 25 MG/ML VIAL IVP PRN (14:52)
[2017-12-27] MEDS ORDERED: Naloxone 0.4 MG/ML INJ IVP PRN (14:52)
--- NOTE | 2017-12-27 15:09 | Internal Med History&Physical ---
<Louie Gonsalez - Last Filed: 12/27/17 15:06> Date of Encounter: 12/27/17 Time of Encounter: 15:06 Assessment and Plan (1) Chest pain Current visit: Yes Status: Acute Presents today with dull, constant chest pain. Unclear as to whether this is purely cardiac in origin. No h/o CAD. He was also noted to have pancreatitis per CT abdomen and his lipase is 411. This could likely be the primary cause as he does have a h/o pancreatitis however a cardiac origin cannot be fully excluded - cardiac enzymes x 2 q 6 hr - EKG - ASA - O2 by NC to keep SpO2 greater than 92% - CBCD, BMP in AM - Fasting lipids - Xarelto - 2D Echo Qualifiers: Chest pain type: unspecified Qualified Code(s): R07.9 - Chest pain, unspecified (2) Pancreatitis Current visit: Yes Status: Acute Pancreatitis secondary to Alcohol abuse. Presents today with a multi-day h/o left sided constant, dull, lower chest pain. H/o alcoholic pancreatitis. Lipase 411, CT abdomen shows acute uncomplicated pancreatitis. -IVF -NPO -Pain management with hydrocodone -antiemetics -lipase in am -CBCD, CMP in am Qualifiers: Chronicity: acute Pancreatitis type: unspecified pancreatitis type Acute pancreatitis complication: unspecified Qualified Code(s): K85.90 - Acute pancreatitis without necrosis or infection, unspecified (3) Alcohol abuse Current visit: Yes Status: Chronic h/o ETOH abuse. Continues to drink daily. -CIWA per protocol -ativan PRN per CIWA -IVF (4) Lung cancer Current visit: Yes Status: Chronic Non-small cell, Follows with [facility] Continue Alectinib Qualifiers: Laterality: unspecified laterality Lung location: unspecified part of lung Qualified Code(s): C34.90 - Malignant neoplasm of unspecified part of unspecified bronchus or lung (5) History of DVT (deep vein thrombosis) Current visit: Yes Status: Chronic (6) Tobacco abuse Current visit: Yes Status: Chronic Continues to smoke, does not wish to quit. Discussed tobacco cessation (7) DVT prophylaxis Current visit: Yes Status: Acute Continue Xarelto Internal Medicine - H&P: HPI Chief complaint: chest pain Admitted From: Home Plans for Post Hospital Care: Home History of present illness: Mr. Moon is a 52 year old male with a PMH of arthritis, non-small cell lung cancer (still undergoing treatment), DVT (taking xarelto), GERD, HTN and osteoporosis. He presets to [facility] today with left sided chest pain which began a couple of days ago. He describes the chest pain as dull and constant, without radiation and nonexertional. He was given 1SL nitro in the ED and reports resolution of chest pain. He denies any shortness of breath, diaphoresis , palpitation, tachycardia, syncope, nausea or vomiting. Additionally, he denies fever, chills, abdominal pain, back pain, or unilateral extremity swelling/pain. He reports heavy alcohol use and has a history of alcohol induced pancreatitis. Workup in the ED includes CT abdomen which reveals acute uncomplicated pancreatitis. Also of note is an elevated lipase of 411. It is unclear as to whether or not this is cardiac or purely pancreatitis. He is being admitted for further evaluation and monitoring. Past Med Surg Social Fam HX - Past Medical History Medical history: arthritis, cancer, DVT, GERD, hypertension, malignancy, osteoporosis, other Psychiatric history: anxiety, depression, other - Past Surgical History Surgical History: arthroscopy, orthopedic, other (Left knee arthroscopic surgery ), other - Social History Smoking Status: Former smoker Smokeless Tobacco Status: No Alcohol use: heavy Drug use: none - Family History Mother Adopted: No Family Member Ethnicity: Non- Living Status: Still Living Hx Family Cardiac Disorders: Yes Hx Family Respiratory Disorders: No Hx Family Cancer: No Hx Family GI Disorders: No Hx Family Endocrine Disorder: No Hx Family Neuromuscular Disorders: No Hx Family Neurologic Disorders: No Hx Family HEENT Disorders: No Hx Family Autoimmune Disorders: No Father Adopted: No Family Member Ethnicity: Non- Living Status: Still Living Hx Family Cardiac Disorders: Yes (HTN) Hx Family Respiratory Disorders: No Hx Family Cancer: Yes Hx Family GI Disorders: No Hx Family Endocrine Disorder: No Hx Family Neuromuscular Disorders: No Hx Family Neurologic Disorders: No Hx Family HEENT Disorders: No Hx Family Autoimmune Disorders: No Brother Adopted: No Family Member Ethnicity: Non- Living Status: Hx Family Cardiac Disorders: Yes Hx Family Respiratory Disorders: No Hx Family Cancer: Yes Hx Family GI Disorders: No Hx Family Endocrine Disorder: No Hx Family Neuromuscular Disorders: No Hx Family Neurologic Disorders: No Hx Family HEENT Disorders: No Hx Family Autoimmune Disorders: No Internal Medicine - H&P: Meds amLODIPine [Norvasc] 5 mg PO DAILY 09/17/16 [History] Lidocaine/Prilocaine CREAM [Emla] 1 gm TP AD 01/22/17 [History] Docusate [Colace] 100 mg PO BID PRN #60 capsule 05/20/17 [Rx] Sertraline [Zoloft] 50 mg PO DAILY 06/22/17 [History] Prochlorperazine Maleate [Compazine] 10 mg PO Q8HR PRN #30 tablet 09/14/17 [Rx] Omeprazole 20 mg PO BID #60 tablet. 09/28/17 [Rx] Alectinib HCl [Alecensa] 600 mg PO BID #240 capsule 10/28/17 [Rx] HYDROcodone/Acet 10/325 mg [[place] 10-325 mg] 1 tab PO Q6HR PRN 30 Days #90 tab 11/30/17 [Rx] LORazepam [Ativan] 1 mg PO Q6HR PRN 30 Days #60 tablet 11/30/17 [Rx] Ondansetron HCl 8 mg PO Q8H PRN #90 tablet 12/18/17 [Rx] Rivaroxaban [Xarelto] 20 mg PO DAILY #30 tablet 12/18/17 [Rx] 3 Allergy/AdvReac Type Severity Reaction Status Date / Time benazepril Allergy Swelling Verified 12/27/17 12:44 of Lip/Tongue/Throat meloxicam Allergy Swelling Verified 12/27/17 12:44 of Lip/Tongue/Throat All Systems PM: A 10-system review of systems was performed and is negative for pertinent findings except as documented above in the HPI. - Constitutional Constitutional: no chills, no fatigue, no fever(s), no night sweats, no weight loss - Cardiovascular Cardiovascular ROS IM: chest pain (Left chest/ LUQ), no dyspnea, no dyspnea on exertion, no edema, no irregular heart rhythm, no lightheadedness, no orthopnea , no palpitations, no paroxysmal nocturnal dyspnea, no syncope - Respiratory Respiratory: no cough, no dyspnea, no wheezing, no excessive phlegm production - Gastrointestinal Gastrointestinal: no diarrhea, no hematemesis, no hematochezia, no melena, no nausea, no vomiting - Genitourinary Genitourinary ROS male: no difficulty urinating, no dysuria, no flank pain - Musculoskeletal Musculoskeletal ROS IM: no numbness, no tingling - Integumentary Integumentary IM: no rash, no unusual bruising - Neurological Neurological ROS: no confusion, no convulsions, no focal weakness, no numbness, no tingling, no tremor(s) - Constitutional Vitals: Temp Pulse Resp BP Pulse Ox 98.1 F 61 14 120/85 95 12/27/17 11:36 12/27/17 12:52 12/27/17 12:52 12/27/17 12:52 12/27/17 12:52 General appearance: Present: cooperative, A&O X 3, no acute distress, answers questions appropriately - Head Head exam: Present: atraumatic, normocephalic - Eye Eye exam: Present: PERRL, conjuntiva pink, sclera anicteric Pupils: Present: PERRL - Neck Neck exam general surgery: Present: supple, trachea midline. Absent: lymphadenopathy - Respiratory Respiratory exam: Present: CTAB. Absent: accessory muscle use, rales, rhonchi, wheezes - Cardiovascular Cardiovascular exam: Present: RRR, +S1, +S2. Absent: diastolic murmur, gallop, rubs, systolic murmur - GI/Abdominal GI/Abdominal exam: Present: normal bowel sounds, soft, tenderness (RUQ mild tenderness), no peritoneal signs. Absent: distended, firm, guarding, hepatomegaly - Extremities Exam Extremities exam: Present: warm, radial pulses palpable and symmetrical. Absent : calf tenderness, cyanotic, pedal edema - Neurological Exam Neurological exam: Present: alert, oriented X3. Absent: facial droop, speech deficit - Skin Skin exam: Present: dry, intact Internal Med - H&P Results - Labs CBC & Chem 7: 12/27/17 11:53 12/27/17 11:53 - EKG Data -: EKG Interpreted by Myself EKG shows normal: sinus rhythm Rate: normal - EKG Data EKG comments: Sinus rhythm ST depression noted on prior EKG's and today's EKG without any changes 12/27/17 15:15 - Impressions Impressions Chest X-Ray 12/27/17 11:45 IMPRESSION: No acute cardiopulmonary disease. D/ / 12/27/2017 12:11:41 Paul Marvin MD / [email or web address] Interpreting Provider: Paul Marvin MD Chest CTA 12/27/17 11:46 IMPRESSION: No CT evidence of pulmonary embolism. Acute uncomplicated pancreatitis. Continued interval decrease in size left upper lobe pulmonary nodules, some with calcification, likely related to granulomatous disease. D/ / Anyi Atkinson Cha, MD / Anyi Atkinson Cha, MD Interpreting Provider: Anyi Atkinson Cha, MD Abdomen/Pelvis CT 12/27/17 11:52 IMPRESSION: No CT evidence of pulmonary embolism. Acute uncomplicated pancreatitis. Continued interval decrease in size left upper lobe pulmonary nodules, some with calcification, likely related to granulomatous disease. D/ / Anyi Atkinson Cha, MD / Anyi Atkinson Cha, MD Interpreting Provider: Anyi Atkinson Cha, MD - VTE Reasons for not Prescribing Prophylaxis: Not indicated-Anticoagulated or INR therapeutic <Melissa Gross - Last Filed: 12/27/17 20:22> Date of Encounter: 12/27/17 Internal Medicine - H&P: HPI History of present illness: Mr. Moon is a 52 year old male All Systems PM: A 10-system review of systems was performed and is negative for pertinent findings except as documented above in the HPI. - Constitutional Vitals: Temp Pulse Resp BP Pulse Ox 98.2 F 63 16 129/82 94 12/27/17 19:47 12/27/17 19:47 12/27/17 19:47 12/27/17 19:47 12/27/17 19:47 Internal Med - H&P Results - Labs CBC & Chem 7: 12/27/17 11:53 12/27/17 11:53 Labs: Cardiac Enzymes 12/27/17 Range/Units 15:36 Troponin I < 0.03 (< 0.04) ng/mL - Attending Attestation I have personally performed a face to face evaluation on this patient. I have reviewed and agree with the care plan as written by Louie Gonsalez NP. Will treat acute on chronic pancreatis conservatively. [facility] protocol Trend cardiac enzymes and check an echo. c/s cardiology if cardiac enzymes trend up or if echo with significant EF change or wall motion abnormality.
[2017-12-27] MEDS: 0.9 % Sodium Chloride 1,000 ML IVC SCH ×2 (17:39→23:56)
[2017-12-27] MEDS: Thiamine (B-1) 100 MG, Folic Acid 1 MG, MVI, adult with vitamin K 10 ML in 0.9 % Sodi... IVPB SCH (17:39)
[2017-12-27] MEDS: *HR* HYDROcodone/Acet 10/325 mg TABLET PO PRN ×2 (17:40→23:55)
[2017-12-27] MEDS: ALECTINIB HCL 150 MG PO SCH (21:27)
[2017-12-28 05:08] LABS: Basophils % 0.6 %; Eosinophils # 0.3 K/mcL (0.0-0.6); Eosinophils % 5.9 %; Hematocrit 34.5 % (37.5-50.1); Immature Granulocytes % 0.2 % (0-4); Lymphocytes # 2.1 K/mcL (0.6-4.6); Lymphocytes % 39.2 %; Mean Corpuscular HGB Conc 35.4 g/dL (31.6-35.5); Mean Corpuscular Hemoglobin 28.6 pg (28.0-33.3); Mean Platelet Volume 12.2 fL (9.4-12.4); Monocytes # 0.5 K/mcL (0.0-1.3); Monocytes % 9.4 %; Neutrophils # 2.4 K/mcL (1.6-8.9); Platelet Count 202 K/mcL (140-400); Red Blood Count 4.26 M/mcL (4.19-5.50); Red Cell Distribution Width 14.6 % (11.5-14.5); Segmented Neutrophils % 44.7 %
[2017-12-28 05:23] LABS: Hemoglobin 12.2 g/dL (12.9-16.9)
[2017-12-28 05:32] LABS: Alanine Aminotransferase 13 Units/L (7-52); Albumin 3.4 g/dL (3.5-5.7); Albumin/Globulin Ratio 1.5 (1.1-2.2); Alkaline Phosphatase 99 Units/L (34-104); Aspartate Amino Transferase 17 Units/L (13-39); BUN/Creatinine Ratio 22 (6-26); Bilirubin,Total 0.6 mg/dL (0.3-1.0); Blood Urea Nitrogen 14 mg/dL (6-20); Calcium 8.6 mg/dL (8.6-10.3); Carbon Dioxide 26 mEq/L (23-29); Chloride 109 mEq/L (98-107); Chol/HDL Ratio 3.8 (0-4.9); Cholesterol 136 mg/dL (< 200); Globulin 2.2 g/dL (2.4-3.5); Glucose 80 mg/dL (70-105); HDL Cholesterol 36 mg/dL (40-59); LDL Cholesterol,Calculated 81 mg/dL (0-99); Lipase 271 Units/L (11-82); Osmolality,Calculated 279 (280-300); Potassium 3.8 mEq/L (3.5-5.1); Sodium 135 mEq/L (136-145); Total Protein 5.6 g/dL (6.4-8.9); Triglycerides 95 mg/dL (< 150); eGFR For African Americans > 60 (> 60); eGFR For Non-African Americans > 60 (> 60)
[2017-12-28] MEDS: Thiamine (B-1) 100 MG TABLET PO SCH (09:14)
[2017-12-28] MEDS: *HR* Rivaroxaban 10 MG TABLET PO SCH (09:14)
[2017-12-28] MEDS: Vitamin B Complex/Vit C/Vit E 1 EACH TABLET PO SCH (09:14)
[2017-12-28] MEDS: Folic Acid 1 MG TABLET PO SCH (09:14)
[2017-12-28] MEDS: ALECTINIB HCL 150 MG PO SCH ×2 (09:15→21:12)
[2017-12-28] MEDS: amLODIPine 5 MG TABLET PO SCH (09:15)
--- NOTE | 2017-12-28 09:30 | Internal Med Progress Note ---
Date of Encounter: 12/28/17 Time of Encounter: 09:28 - Assessment and plan (1) Chest pain Current Visit: Yes Status: Acute Assessment and plan: Patient points to his lower epigastrium when asked where his chest pain was. He stated it radiated around to his left side into his back. Troponins are negative Lipid panel cholesterol 136, LDL 81 HDL 36 ECHOardiogram pending Continue aspirin O2 to keep sats greater than 92% Monitor lab work Continue Xarelto Patient is currently chest pain-free. Cardiac monitoring Qualifiers: Chest pain type: unspecified Qualified Code(s): R07.9 - Chest pain, unspecified (2) Pancreatitis Current Visit: Yes Status: Acute Assessment and plan: Pancreas secondary to continual alcohol abuse. Patient drinks mostly every day 6-12 beers a day. His last drink was on Thursday. His report. He has left- sided constant sharp to dull left upper quadrant pain. He has a history of alcoholic pancreatitis. He states the last time he was here area card 4 days and patient to improve. CT of the abdomen report revealed acute uncomplicated pancreatitis Lipase was 411 on presentation and is now trending down to 271. No further vomiting and his nausea has resolved. Continue IV fluids until tolerating a diet. Clear liquids as tolerated Monitor labs WBCs 5.4. Qualifiers: Chronicity: acute Pancreatitis type: unspecified pancreatitis type Acute pancreatitis complication: unspecified Qualified Code(s): K85.90 - Acute pancreatitis without necrosis or infection, unspecified (3) Alcohol abuse Current Visit: Yes Status: Chronic Assessment and plan: Patient is on alcohol withdrawal scale, CIWA with ativan as needed He has no desire to stop drinking at this time, he states "some time I'll quit". (4) Hypertension Current Visit: Yes Status: Chronic Assessment and plan: Pressure well controlled Qualifiers: Hypertension type: essential hypertension Qualified Code(s): I10 - Essential (primary) hypertension (5) Lung cancer Current Visit: Yes Status: Chronic Assessment and plan: Non-small cell lung cancer and follows with [facility] Continue Alectinb CTA of the chest revealed small nodular densities in the left upper lobe adjacent in the major fissure largest measuring 9 x 7 mm and was previously 1.6 x 1.1 cm. The smaller nodule densities are also decreased in size. There is some calcification within the largest nodule described. No acute or focal bony abnormality noted. Qualifiers: Laterality: unspecified laterality Lung location: unspecified part of lung Qualified Code(s): C34.90 - Malignant neoplasm of unspecified part of unspecified bronchus or lung (6) Tobacco abuse Current Visit: Yes Status: Chronic Assessment and plan: Patient continues to smoke and has noted no desire to stop. He also declined a NicoDerm patch (7) DVT prophylaxis Current Visit: Yes Status: Acute Assessment and plan: Patient has history of DVT and is on Xarelto - Subjective Interval history: Patient is lying in bed. He states his nausea and vomiting have resolved. He would like to try some clear liquids. His chest pain has resolved, on his explanation he denies fever, chills, sweats, chest pain, shortness of breath improved abdominal pain, no dizziness or headache. of the chest pain is more of an epigastric radiating over into the left upper quadrant. - Constitutional Vitals: Temp Pulse Resp BP Pulse Ox 99.4 F 78 15 120/58 97 12/28/17 06:54 12/28/17 06:54 12/28/17 06:54 12/28/17 06:54 12/28/17 06:54 General appearance: Present: cooperative, A&O X 3, pleasant, no acute distress, answers questions appropriately - Head Head exam: Present: atraumatic, normocephalic - Eye Eye exam: Present: PERRL, conjuntiva pink, sclera anicteric Pupils: Present: PERRL - Neck Neck exam general surgery: Present: supple, trachea midline. Absent: lymphadenopathy - Respiratory Respiratory exam: Present: CTAB. Absent: accessory muscle use, rales, respiratory distress, rhonchi, wheezes - Cardiovascular Cardiovascular exam: Present: RRR, +S1, +S2. Absent: diastolic murmur, gallop, rubs, systolic murmur - GI/Abdominal GI/Abdominal exam: Present: normal bowel sounds, soft, tenderness, no peritoneal signs. Absent: distended, guarding, rebound Additional comments: Slightly tender to left upper quadrant. - Extremities Exam Extremities exam: Present: warm, radial pulses palpable and symmetrical. Absent : calf tenderness, cyanotic, pedal edema - Neurological Exam Neurological exam: Present: alert, CN II-XII intact, oriented X3, no focal deficits, strengths equal and symetr throughout. Absent: pronater drift, facial droop, speech deficit - Skin Skin exam: Present: dry, intact, normal color, warm Internal Medicine: Result - Labs CBC & Chem 7: 12/28/17 03:23 12/28/17 03:23 Labs: Short CBC 12/28/17 Range/Units 03:23 WBC 5.4 (4.3-11.1) K/mcL Hgb 12.2 L D (12.9-16.9) g/dL Hct 34.5 L (37.5-50.1) % Plt Count 202 (140-400) K/mcL Neutrophils # 2.4 (1.6-8.9) K/mcL BMP 12/28/17 03:23 Sodium 135 L Potassium 3.8 Chloride 109 H Carbon Dioxide 26 BUN 14 Creatinine 0.63 L Glucose 80 Calcium 8.6 Cardiac Enzymes 12/27/17 12/27/17 Range/Units 15:36 21:27 Troponin I < 0.03 < 0.03 (< 0.04) ng/mL Liver Function 12/28/17 Range/Units 03:23 Total Bilirubin 0.6 (0.3-1.0) mg/dL AST 17 (13-39) Units/L ALT 13 (7-52) Units/L Alkaline Phosphatase 99 (34-104) Units/L Albumin 3.4 L (3.5-5.7) g/dL - ABG Interpretation ABG results: PT/INR, D-dimer PT 16.4 Seconds (9.4-12.1) H 12/27/17 11:53 - VTE Reasons for not Prescribing Prophylaxis: Not indicated-Anticoagulated or INR therapeutic Consult Discharge Plan - Plan Referrals: Ivana Weston, DUMPER [Primary Care Provider] -
[2017-12-28] MEDS: *HR* HYDROcodone/Acet 10/325 mg TABLET PO PRN ×2 (11:51→21:12)
[2017-12-28] MEDS: Thiamine (B-1) 100 MG, Folic Acid 1 MG, MVI, adult with vitamin K 10 ML in 0.9 % Sodi... IVPB SCH (18:01)
--- NOTE | 2017-12-28 20:04 | Electrocardiograph Report ---
[address] [place], [place] [address] Test Date: 2017-12-27 Pat Name: Sachin Moon Department: 104 Room: 3B16 Gender: M Food Assembler: : 1965 Requested By: Elder Galarza Order Number: [id number] [place] MD: Aryan Snog MD Measurements Intervals [place] Rate: 67 P: 34 TX: 150 QRS: -32 QRSD: 102 T: -4 QT: 384 QTc: 399 Interpretive Statements SINUS RHYTHM MARKED LEFT AXIS DEVIATION INCOMPLETE RIGHT BUNDLE BRANCH BLOCK ANTERIOR ISCHEMIA Electronically Signed On 12-28-2017 20:02:46 EDT by Aryan Song MD
[2017-12-29 05:01] LABS: Hematocrit 35.3 % (37.5-50.1); Hemoglobin 12.5 g/dL (12.9-16.9); Mean Corpuscular HGB Conc 35.4 g/dL (31.6-35.5); Mean Corpuscular Hemoglobin 28.6 pg (28.0-33.3); Mean Corpuscular Volume 80.8 fL (83.0-100.0); Mean Platelet Volume 11.9 fL (9.4-12.4); Platelet Count 191 K/mcL (140-400); Red Blood Count 4.37 M/mcL (4.19-5.50); Red Cell Distribution Width 14.6 % (11.5-14.5)
[2017-12-29 05:19] LABS: Alanine Aminotransferase 12 Units/L (7-52); Albumin 3.7 g/dL (3.5-5.7); Albumin/Globulin Ratio 1.5 (1.1-2.2); Alkaline Phosphatase 97 Units/L (34-104); Aspartate Amino Transferase 20 Units/L (13-39); BUN/Creatinine Ratio 13 (6-26); Bilirubin,Total 0.6 mg/dL (0.3-1.0); Blood Urea Nitrogen 9 mg/dL (6-20); Calcium 8.9 mg/dL (8.6-10.3); Carbon Dioxide 25 mEq/L (23-29); Chloride 107 mEq/L (98-107); Globulin 2.4 g/dL (2.4-3.5); Glucose 106 mg/dL (70-105); Lipase 227 Units/L (11-82); Osmolality,Calculated 283 (280-300); Potassium 3.5 mEq/L (3.5-5.1); Sodium 137 mEq/L (136-145); Total Protein 6.1 g/dL (6.4-8.9); eGFR For African Americans > 60 (> 60); eGFR For Non-African Americans > 60 (> 60)
[2017-12-29] MEDS: amLODIPine 5 MG TABLET PO SCH (08:59)
[2017-12-29] MEDS: Folic Acid 1 MG TABLET PO SCH (09:01)
[2017-12-29] MEDS: Vitamin B Complex/Vit C/Vit E 1 EACH TABLET PO SCH (09:01)
[2017-12-29] MEDS: *HR* Rivaroxaban 10 MG TABLET PO SCH (09:01)
[2017-12-29] MEDS: Thiamine (B-1) 100 MG TABLET PO SCH (09:01)
[2017-12-29] MEDS: ALECTINIB HCL 150 MG PO SCH ×2 (09:02→20:31)
--- NOTE | 2017-12-29 16:54 | Internal Med Progress Note ---
Date of Encounter: 12/29/17 Time of Encounter: 09:15 - Assessment and plan (1) Chest pain Current Visit: Yes Status: Acute Assessment and plan: Patient denies chest pain. He does report pain to epigastric area with palpation. Patient's troponins are negative, lipid panel is within normal limits, chest x- ray is negative. Chest CT is negative for evidence of PE, did show acute uncomplicated pancreatitis. There continued decrease in size left upper lobe pulmonary nodules, some with calcification, likely related to granulomatous disease. Echocardiogram shows LVEF of 60% with mild LV DD, mild pulmonic regurgitation, all wall segments showed normal motion. Chest pain is most likely due to acute pancreatitis. Continue telemetry and pain control. Continue to monitor labs and vital signs. Qualifiers: Chest pain type: unspecified Qualified Code(s): R07.9 - Chest pain, unspecified (2) Pancreatitis Current Visit: Yes Status: Acute Assessment and plan: Pancreatitis noted on chest CTA, secondary to chronic alcohol abuse. Patient reports that he drinks every day, 6-12 beers daily. He reports his last drink was on Thursday, 4 days ago. Prior history of alcoholic pancreatitis. Lipase is trending down, 227 today. We will continue IV fluids and monitor labs again in the morning. He reports no further nausea and vomiting. He has advanced to a full liquid diet. Monitor labs in the a.m. Qualifiers: Chronicity: acute Pancreatitis type: unspecified pancreatitis type Acute pancreatitis complication: unspecified Qualified Code(s): K85.90 - Acute pancreatitis without necrosis or infection, unspecified (3) Alcohol abuse Current Visit: Yes Status: Chronic Assessment and plan: Patient reports chronic alcohol abuse, 6-12 beers per day. CIWA protocol, patient is not scoring, not receiving Ativan. Patient states that he is not ready to quit at this time. (4) Hypertension Current Visit: Yes Status: Chronic Assessment and plan: Well-controlled. Continue home medications. Qualifiers: Hypertension type: essential hypertension Qualified Code(s): I10 - Essential (primary) hypertension (5) Lung cancer Current Visit: Yes Status: Chronic Assessment and plan: Patient follows with [facility]. Qualifiers: Laterality: unspecified laterality Lung location: unspecified part of lung Qualified Code(s): C34.90 - Malignant neoplasm of unspecified part of unspecified bronchus or lung (6) Tobacco abuse Current Visit: Yes Status: Chronic Assessment and plan: Patient reports that he smokes anywhere from 1/2-1 pack per day, reports that his increased recently due to stress. (7) DVT prophylaxis Current Visit: Yes Status: Acute Assessment and plan: Pt is on Xarelto for history of DVT. Continue Xarelto. (8) History of DVT (deep vein thrombosis) Current Visit: Yes Status: Chronic Assessment and plan: Patient reports history of DVT "in my neck." Pt is anticoagulated on Xarelto. Continue. - Time Spent With Patient less than 15 minutes - Subjective Interval history: Patient was seen and assessed at 9:15 AM. He is alert, awake, denies any chest pain, reports some abdominal tenderness with palpation in epigastric area, but states it is improved. He reports his last drink was Thursday, 4 days ago. He is not requiring Ativan for the CIWA protocol. Patient reports that he is doing well with not smoking and declines need for nicotine replacement. He denies headache, blurred vision, nausea, vomiting, diarrhea. He denies abdominal pain other than with palpation. She is agreeable to staying for continued IV hydration and monitoring of lipase. - Constitutional Vitals: Temp Pulse Resp BP Pulse Ox 98.2 F 57 16 125/79 96 12/29/17 15:48 12/29/17 15:48 12/29/17 15:48 12/29/17 15:48 12/29/17 15:48 General appearance: Present: cooperative, A&O X 3, pleasant, no acute distress, answers questions appropriately - Head Head exam: Present: atraumatic, normal inspection, normocephalic - Eye Eye exam: Present: conjuntiva pink, sclera anicteric - Neck Neck exam general surgery: Present: supple, trachea midline. Absent: lymphadenopathy, tenderness - Respiratory Respiratory exam: Present: CTAB. Absent: accessory muscle use, chest wall tenderness, decreased breath sounds, rales, respiratory distress, rhonchi, wheezes - Cardiovascular Cardiovascular exam: Present: RRR, +S1, +S2. Absent: diastolic murmur, gallop, rubs, systolic murmur - GI/Abdominal GI/Abdominal exam: Present: normal bowel sounds, soft, tenderness. Absent: distended - Extremities Exam Extremities exam: Present: normal capillary refill, normal inspection, warm, radial pulses palpable and symmetrical. Absent: calf tenderness, cyanotic, pedal edema - Neurological Exam Neurological exam: Present: alert, oriented X3, no focal deficits. Absent: facial droop, speech deficit - Skin Skin exam: Present: dry, intact, normal color, warm. Absent: rash Internal Medicine: Result - Labs CBC & Chem 7: 12/29/17 04:27 12/29/17 04:27 Labs: Short CBC 12/29/17 Range/Units 04:27 WBC 4.4 (4.3-11.1) K/mcL Hgb 12.5 L (12.9-16.9) g/dL Hct 35.3 L (37.5-50.1) % Plt Count 191 (140-400) K/mcL BMP 12/29/17 04:27 Sodium 137 Potassium 3.5 Chloride 107 Carbon Dioxide 25 BUN 9 Creatinine 0.69 L Glucose 106 H Calcium 8.9 Liver Function 12/29/17 Range/Units 04:27 Total Bilirubin 0.6 (0.3-1.0) mg/dL AST 20 (13-39) Units/L ALT 12 (7-52) Units/L Alkaline Phosphatase 97 (34-104) Units/L Albumin 3.7 (3.5-5.7) g/dL - ABG Interpretation ABG results: PT/INR, D-dimer PT 16.4 Seconds (9.4-12.1) H 12/27/17 11:53 - VTE Reasons for not Prescribing Prophylaxis: Not indicated-Anticoagulated or INR therapeutic Consult Discharge Plan - Plan Referrals: Ivana Weston, HOUSE COORDINATOR [Primary Care Provider] -
[2017-12-29] MEDS ORDERED: 0.9 % Sodium Chloride 1,000 ML IVC SCH (17:15)
[2017-12-29] MEDS: Thiamine (B-1) 100 MG, Folic Acid 1 MG, MVI, adult with vitamin K 10 ML in 0.9 % Sodi... IVPB SCH (17:25)
[2017-12-29] MEDS: *HR* HYDROcodone/Acet 10/325 mg TABLET PO PRN (18:43)
[2017-12-30 05:26] LABS: Basophils # 0.1 K/mcL (0.0-0.2); Basophils % 1.1 %; Eosinophils # 0.3 K/mcL (0.0-0.6); Eosinophils % 7.4 %; Hematocrit 34.2 % (37.5-50.1); Hemoglobin 12.1 g/dL (12.9-16.9); Immature Granulocytes % 0.2 % (0-4); Lymphocytes # 2.2 K/mcL (0.6-4.6); Lymphocytes % 50.3 %; Mean Corpuscular HGB Conc 35.4 g/dL (31.6-35.5); Mean Corpuscular Hemoglobin 28.6 pg (28.0-33.3); Mean Corpuscular Volume 80.9 fL (83.0-100.0); Monocytes # 0.6 K/mcL (0.0-1.3); Monocytes % 13.3 %; Neutrophils # 1.2 K/mcL (1.6-8.9); Platelet Count 173 K/mcL (140-400); Red Blood Count 4.23 M/mcL (4.19-5.50); Red Cell Distribution Width 14.6 % (11.5-14.5); Segmented Neutrophils % 27.7 %
[2017-12-30 05:51] LABS: BUN/Creatinine Ratio 10 (6-26); Blood Urea Nitrogen 7 mg/dL (6-20); Carbon Dioxide 24 mEq/L (23-29); Chloride 109 mEq/L (98-107); Glucose 109 mg/dL (70-105); Lipase 228 Units/L (11-82); Osmolality,Calculated 287 (280-300); Potassium 3.6 mEq/L (3.5-5.1); Sodium 139 mEq/L (136-145); eGFR For African Americans > 60 (> 60); eGFR For Non-African Americans > 60 (> 60)
[2017-12-30] MEDS: Vitamin B Complex/Vit C/Vit E 1 EACH TABLET PO SCH (09:39)
[2017-12-30] MEDS: amLODIPine 5 MG TABLET PO SCH (09:39)
[2017-12-30] MEDS: Folic Acid 1 MG TABLET PO SCH (09:39)
[2017-12-30] MEDS: Thiamine (B-1) 100 MG TABLET PO SCH (09:39)
[2017-12-30] MEDS: ALECTINIB HCL 150 MG PO SCH (09:40)
[2017-12-30] MEDS: *HR* Rivaroxaban 10 MG TABLET PO SCH (09:45)
[2017-12-30 10:51] VITALS: BP 124/77
--- NOTE | 2017-12-30 13:42 | Discharge Summary ---
- NOTES TO OUTPATIENT PROVIDER Notes to Outpatient Provider: Pt may need GI follow up for elevated Lipase, may be at his baseline due to chronic alcoholism. 471 on admission, trended down to 228 on day 3, no others to compare baseline levels. Date of Encounter: 12/30/17 Time of Encounter: 10:30 - Discharge Diagnosis (1) Chest pain Priority: Secondary Status: Acute Comments: Denies chest pain, epigastric pain has improved. Chest pain was most likely due to acute pancreatitis. Qualifiers: Chest pain type: unspecified Qualified Code(s): R07.9 - Chest pain, unspecified (2) Pancreatitis Priority: Secondary Status: Acute Comments: Secondary chronic alcohol abuse. Last check was 5 days ago. Prior history of alcoholic pancreatitis. Lipase has trended down to 227 yesterday, 228 today. Did not decrease with IV fluids and regular diet. This may be patient's baseline due to his chronic alcoholism. He has no further nausea or vomiting and is eating a regular diet and tolerating liquids well. Recommended patient follow-up with primary care and/or GI for evaluation. Qualifiers: Chronicity: acute Pancreatitis type: unspecified pancreatitis type Acute pancreatitis complication: unspecified Qualified Code(s): K85.90 - Acute pancreatitis without necrosis or infection, unspecified (3) Alcohol abuse Priority: Primary Status: Chronic Comments: Chronic alcohol abuse. Last drink 5 days ago. Patient was admitted with [facility] protocol, has not been scoring and not receiving Ativan. Patient reports he is not ready to quit drinking at this time. (4) Hypertension Priority: Secondary Status: Chronic Comments: Well-controlled. Continue home medications. Qualifiers: Hypertension type: essential hypertension Qualified Code(s): I10 - Essential (primary) hypertension (5) Lung cancer Priority: Secondary Status: Chronic Comments: Follow with [facility]. Qualifiers: Laterality: unspecified laterality Lung location: unspecified part of lung Qualified Code(s): C34.90 - Malignant neoplasm of unspecified part of unspecified bronchus or lung (6) Tobacco abuse Priority: Secondary Status: Chronic Comments: Patient smokes approximately 1/2-1 pack per day. He reports recent increase due to stress. He is declining nicotine replacement therapy during admission or after discharge. (7) DVT prophylaxis Priority: Secondary Status: Acute Comments: Patient is on Xarelto for history of DVT. Continue at home. (8) History of DVT (deep vein thrombosis) Priority: Secondary Status: Chronic Comments: Patient reports prior history of DVT. He is anticoagulated on Xarelto. Hospital course: Mr. Moon is a 52 year old male with PMH of lung cancer, chronic alcoholism, tobacco abuse, HTN, pancreatitis. Patient presented to the emergency department with nausea vomiting, chest pain. Chest pain was actually more epigastric in nature, he had tenderness to palpation. Troponins are negative, lipid panel is within normal limits, chest x-ray was negative. Chest CT is negative for evidence of PE, but did show a comp acute pancreatitis. Patient had an echocardiogram that showed preserved ejection fraction with mild LV DD LPR, all wall segments showed normal motion. Patient's elevated lipase trended down to 228 even with IV fluids, by mouth fluids and normal diet. Patient has had no further nausea or vomiting and denies abdominal pain at discharge. She will need follow-up to continue to trend lipase. Patient reports he drinks anywhere from 6-12 beers daily. He did receive [place] protocol while he was here , last drink was 5 days ago. He was not scoring on the CIWA scale and was not receiving Ativan. Recent vital signs and labs were within normal limits and he is returned to baseline. Recommend follow-up with primary care within the next 7-10 days. Patient is stable and appropriate for discharge Discharge discussed with: patient - Time Spent with Patient Total time spent providing and/or coordinating discharge services: Less than 30 minutes - Discharge Medications Prescriptions: Folic Acid 1 mg PO DAILY #30 tablet Thiamine (B-1) [Vitamin B-1] 100 mg PO DAILY #30 tablet Vitamin B Complex/Vit C/Vit E [Stresstab] 1 each PO DAILY #30 tablet Home Medications: amLODIPine [Norvasc] 5 mg PO DAILY 09/17/16 [History] Lidocaine/Prilocaine CREAM [Emla] 1 gm TP AD 01/22/17 [History] Docusate [Colace] 100 mg PO BID PRN #60 capsule 05/20/17 [Rx] Sertraline [Zoloft] 50 mg PO DAILY 06/22/17 [History] Prochlorperazine Maleate [Compazine] 10 mg PO Q8HR PRN #30 tablet 09/14/17 [Rx] Omeprazole 20 mg PO BID #60 tablet.dr 09/28/17 [Rx] Alectinib HCl [Alecensa] 600 mg PO BID #240 capsule 10/28/17 [Rx] HYDROcodone/Acet 10/325 mg [[place] 10-325 mg] 1 tab PO Q6HR PRN 30 Days #90 tab 11/30/17 [Rx] LORazepam [Ativan] 1 mg PO Q6HR PRN 30 Days #60 tablet 11/30/17 [Rx] Ondansetron HCl 8 mg PO Q8H PRN #90 tablet 12/18/17 [Rx] Rivaroxaban [Xarelto] 20 mg PO DAILY #30 tablet 12/18/17 [Rx] Folic Acid 1 mg PO DAILY #30 tablet 12/30/17 [Rx] Thiamine (B-1) [Vitamin B-1] 100 mg PO DAILY #30 tablet 12/30/17 [Rx] Vitamin B Complex/Vit C/Vit E [Stresstab] 1 each PO DAILY #30 tablet 12/30/17 [ Rx] Allergies/Adverse Reactions: 3 Allergy/AdvReac Type Severity Reaction Status Date / Time benazepril Allergy Swelling Verified 12/27/17 12:44 of Lip/Tongue/Throat meloxicam Allergy Swelling Verified 12/27/17 12:44 of Lip/Tongue/Throat Date of admission: 12/29/17 17:07 Primary care physician: Guy Gibbs Discharging clinician: Nina Ruano Anticipated date of discharge: 12/30/17 - Constitutional Vitals: Temp Pulse Resp BP Pulse Ox 98.0 F 54 14 124/77 93 12/30/17 10:48 12/30/17 10:48 12/30/17 10:48 12/30/17 10:48 12/30/17 10:48 General appearance: Present: cooperative, A&O X 3, pleasant, no acute distress, answers questions appropriately - Head Head exam: Present: atraumatic, normal inspection, normocephalic - Eye Eye exam: Present: normal appearance, conjuntiva pink, sclera anicteric - Neck Neck exam general surgery: Present: supple, trachea midline. Absent: lymphadenopathy, tenderness - Respiratory Respiratory exam: Present: CTAB. Absent: accessory muscle use, prolonged expiratory phase, rales, rhonchi, wheezes - Cardiovascular Cardiovascular exam: Present: RRR, +S1, +S2. Absent: diastolic murmur, gallop, rubs, systolic murmur - GI/Abdominal GI/Abdominal exam: Present: normal bowel sounds, soft, no peritoneal signs. Absent: distended, hepatomegaly, tenderness - Extremities Exam Extremities exam: Present: normal capillary refill, normal inspection, warm, radial pulses palpable and symmetrical. Absent: calf tenderness, cyanotic, pedal edema - Neurological Exam Neurological exam: Present: alert, oriented X3, no focal deficits. Absent: facial droop, speech deficit - Skin Skin exam: Present: dry, intact, normal color, warm. Absent: rash - Patient Status Disposition: Home, Self-Care Condition: Good Functional capacity at discharge: independent ambulation Overall status at discharge: patient is not back to baseline - Discharge Instructions Instructions: Abuse of Alcohol (DC) Follow Up With: Ivana Weston CNP [Primary Care Provider] - 01/06/18 1:00 pm Additional Instructions: Please follow up with oncology as scheduled. Please follow up with her primary care provider in the next 7-10 days and have your lipase lab redrawn. Return to the emergency department as needed for any other problems or concerns. Please try to stop smoking and drinking. Take your normal medications as directed, return to her normal activities and diet as tolerated. - Diet and Activity Activity: increase activity as tolerated Diet: advance to your usual diet - VTE Reasons for not Prescribing Prophylaxis: Not indicated-Anticoagulated or INR therapeutic
== END 2017-12-30 14:25 | disposition home or self-care (01) | DRG 282 ==
LOC: 3BNU 11:35 → EMEROO 11:35 → 3BNU 14:52
PROVIDERS: ADMIT Internal Medicine; ATTEND Registered Nurse

== ENCOUNTER 2019-07-06 14:04 | Observation (INO) ==
[2019-07-06 14:48] LABS: Bilirubin,Urine Negative (Negative); Blood,Urine Trace (Negative); Clarity,Urine Clear (Clear); Color,Urine Yellow (Yellow); Glucose,Urine (UA) Normal (Normal); Ketones,Urine Trace mg/dL (Negative); Leukocyte Esterase,Urine Negative (Negative); Nitrite,Urine Negative (Negative); PH,Urine 5.5 pH Units (5.0-8.0); Protein,Urine Negative (Neg-Trace); Specific Gravity,Urine 1.025 (1.010-1.025); Urobilinogen,Urine Normal (Normal)
[2019-07-06 14:50] LABS: Bacteria,Urine None Seen per hpf (None-Few); Hyaline Casts,Urine None Seen per lpf (None-Few); RBC,Urine 15-30 per hpf (0-3); Squamous Epithelial Cell,Urine Moderate per lpf (None-Few); WBC,Urine 0-3 per hpf (0-3)
[2019-07-06 15:06] LABS: Calcium Oxalate Crystals,Urine Present
[2019-07-06 15:11] LABS: Alanine Aminotransferase 28 Units/L (7-52); Albumin 4.1 g/dL (3.5-5.7); Albumin/Globulin Ratio 1.6 (1.1-2.2); Alkaline Phosphatase 89 Units/L (34-104); Aspartate Amino Transferase 35 Units/L (13-39); BUN/Creatinine Ratio 22 (6-26); Bilirubin,Direct 0.2 mg/dL (0.0-0.2); Bilirubin,Indirect 0.5 mg/dL (0.0-1.2); Bilirubin,Total 0.7 mg/dL (0.3-1.0); Blood Urea Nitrogen 13 mg/dL (6-20); Calcium 8.8 mg/dL (8.6-10.3); Carbon Dioxide 29 mEq/L (23-29); Chloride 105 mEq/L (98-107); Globulin 2.5 g/dL (2.4-3.5); Glucose 131 mg/dL (70-105); Lipase 37 Units/L (11-82); Osmolality,Calculated 290 (280-300); Potassium 3.3 mEq/L (3.5-5.1); Sodium 139 mEq/L (136-145); Total Protein 6.6 g/dL (6.4-8.9); eGFR For African Americans > 60 (> 60); eGFR For Non-African Americans > 60 (> 60)
[2019-07-06 15:22] LABS: Monocytes % 7.6 %
[2019-07-06 15:23] LABS: Basophils # 0.1 K/mcL (0.0-0.2); Basophils % 0.6 %; Eosinophils % 0.3 %; Hematocrit 37.8 % (37.5-50.1); Immature Granulocytes % 0.2 % (0-4); Immature Platelets 14.9 % (1.1-6.1); Lymphocytes # 2.4 K/mcL (0.6-4.6); Lymphocytes % 26.9 %; Mean Corpuscular Hemoglobin 27.6 pg (28.0-33.3); Mean Corpuscular Volume 74.6 fL (83.0-100.0); Monocytes # 0.7 K/mcL (0.0-1.3); Neutrophils # 5.7 K/mcL (1.6-8.9); Platelet Count 106 K/mcL (140-400); Red Blood Count 5.07 M/mcL (4.19-5.50); Red Cell Distribution Width 15.2 % (11.5-14.5); Segmented Neutrophils % 64.4 %; White Blood Count 8.8 K/mcL (4.3-11.1)
[2019-07-06 16:21] LABS: Platelet Estimate Slight Decrease (Normal)
--- NOTE | 2019-07-06 16:24 | Emergency Department Note ---
Disposition Clinical Impression: Pancreatic pseudocyst Acute pancreatitis Qualifiers: Pancreatitis type: alcohol induced Acute pancreatitis complication: unspecified Qualified Code(s): K85.20 - Alcohol induced acute pancreatitis without necrosis or infection Lung cancer Qualifiers: Laterality: unspecified laterality Lung location: unspecified part of lung Qualified Code(s): C34.90 - Malignant neoplasm of unspecified part of unspecified bronchus or lung Disposition: Admitted As Inpatient Condition: Fair Time of Disposition: 19:16 General Adult HPI - General Chief complaint: ED Abdominal Pain Stated complaint: Abdominal pain Time Seen by Provider: 07/06/19 14:58 Source: patient Limitations: no limitations Nursing Notes Reviewed: Yes Vital Signs Reviewed: Yes - History of Present Illness HPI Narrative: Presents with abdominal pain which started suddenly at 10:30 today and his left upper quadrant but minimally of right upper quadrant also he does have a history of pancreatitis and drinks about 6 beers per day does have a history of diagnosis of lung cancer and the lung cancer was diagnosed in 2016 and he has had chemotherapy and no radiation or surgery. He vomited one time today. No blood in the urine or stool, dysuria or urinary frequency, testicular pain or penile discharge or any fevers. Social history: Smoker. Is here with his Pain Scale: 9 - Related Data Home Medications Medication Instructions Recorded Confirmed Alectinib HCl [Alecensa] 600 mg PO BIDWM 07/06/19 07/06/19 Aripiprazole [Abilify] 5 mg PO DAILY 07/06/19 07/06/19 Folic Acid 1 mg PO DAILY 07/06/19 07/06/19 LORazepam [Ativan] 1 mg PO Q6H PRN 07/06/19 07/06/19 Omeprazole [PriLOSEC] 20 mg PO BIDAC 07/06/19 07/06/19 Rivaroxaban [Xarelto] 20 mg PO DAILY 07/06/19 07/06/19 Sertraline [Zoloft] 150 mg PO DAILY 07/06/19 07/06/19 amLODIPine [Norvasc] 5 mg PO DAILY 07/06/19 07/06/19 Allergies Allergy/AdvReac Type Severity Reaction Status Date / Time benazepril Allergy Anaphylaxis Verified 04/07/19 14:16 meloxicam Allergy Anaphylaxis Verified 04/07/19 14:16 All systems ED: reviewed and negative except as stated. Past Medical History - Past Medical History Medical history: Reports: arthritis, cancer, DVT, GERD, hypertension, malignancy, osteoporosis, other Surgical history: Reports: arthroscopy, orthopedic, other (Left knee arthroscopic surgery), other Psychiatric history: Reports: anxiety, depression, other - Social History Smoking Status: Current every day smoker Smokeless Tobacco Status: No Alcohol use: Reports: heavy Drug use: Reports: marijuana Physical Exam CONSTITUTIONAL: Alert and oriented X3, well-nourished, well appearing, in no apparent distress HEAD: Normocephalic; atraumatic. EYES: PERRL, no scleral icterus. NOSE: The nose is normal in appearance without rhinorrhea RESP: Normal chest excursion with respiration; breath sounds clear and equal bilaterally; no wheezes, rhonchi, or rales CARD: Regular rhythm, without murmurs, rub or gallop ABD: Non-distended; normal appearance, mild pain with palpation left upper quadrant and right upper quadrant but very mild and soft without rigidity, rebound, guarding elsewhere the abdomen is non-tender, soft,without rigidity, r ebound or guarding SKIN: Normal for age and race; warm and dry; no apparent lesions - General Limitations: no limitations General appearance: alert, in no apparent distress Course Vital Signs Temperature 97.1 F L 07/06/19 14:05 Pulse Rate 69 07/06/19 14:05 Respiratory Rate 18 07/06/19 14:05 Blood Pressure 151/82 07/06/19 14:05 O2 Sat by Pulse Oximetry 97 07/06/19 14:05 Temperature 97.1 F L 07/06/19 14:05 Pulse Rate 61 07/06/19 19:12 Respiratory Rate 18 07/06/19 19:12 Blood Pressure 126/79 07/06/19 19:12 O2 Sat by Pulse Oximetry 97 07/06/19 19:12 Oxygen Delivery Oxygen Delivery Room Air Medical Decision Making - [facility] Narrative Medical decision making narrative: I did review the patient's labs and some minimal thrombocytopenia likely from alcohol use and his lipase is normal and a CT scan will be done to look for not only pancreatitis but also evidence of obstruction. He said he typically gets admitted for 3 days when he has exacerbations of his pancreatitis. 1625 I did review the patient's test results. I did see the patient again is spoke with him and his . I did speak hospitalist who accepts the patient for admission for acute pancreatitis with pancreatic pseudocyst 1914 - Medical Records Medical records reviewed: Yes I reviewed the patient's medical records. - Lab Data Lab results reviewed: Yes I reviewed the patient's lab results. Result diagrams: 07/06/19 14:33 07/06/19 14:33 Lab Results 07/06/19 07/06/19 07/06/19 Range/Units 14:33 14:33 14:40 WBC 8.8 (4.3-11.1) K/mcL RBC 5.07 (4.19-5.50) M/mcL Hgb 14.0 (12.9-16.9) g/dL Hct 37.8 (37.5-50.1) % MCV 74.6 L (83.0-100.0) fL MCH 27.6 L (28.0-33.3) pg MCHC 37.0 H (31.6-35.5) g/dL RDW 15.2 H (11.5-14.5) % Plt Count 106 L (140-400) K/mcL MPV TNP Immature Gran % 0.2 (0-4) % Seg Neutrophils % 64.4 % Lymphocytes % 26.9 % Monocytes % 7.6 % Eosinophils % 0.3 % Basophils % 0.6 % Neutrophils # 5.7 (1.6-8.9) K/mcL Lymphocytes # 2.4 (0.6-4.6) K/mcL Monocytes # 0.7 (0.0-1.3) K/mcL Eosinophils # 0.0 (0.0-0.6) K/mcL Basophils # 0.1 (0.0-0.2) K/mcL Platelet Estimate Slight Decrease L (Normal) Immature Plt Fraction 14.9 H (1.1-6.1) % Sodium 139 (136-145) mEq/L Potassium 3.3 L (3.5-5.1) mEq/L Chloride 105 (98-107) mEq/L Carbon Dioxide 29 (23-29) mEq/L BUN 13 (6-20) mg/dL Creatinine 0.60 L (0.70-1.30) mg/dL Est GFR ( Amer) > 60 (> 60) Est GFR (Non-Af Amer) > 60 (> 60) BUN/Creatinine Ratio 22 (6-26) Glucose 131 H (70-105) mg/dL Calculated Osmolality 290 (280-300) Calcium 8.8 (8.6-10.3) mg/dL Total Bilirubin 0.7 (0.3-1.0) mg/dL Direct Bilirubin 0.2 (0.0-0.2) mg/dL Indirect Bilirubin 0.5 (0.0-1.2) mg/dL AST 35 (13-39) Units/L ALT 28 (7-52) Units/L Alkaline Phosphatase 89 (34-104) Units/L Serum Total Protein 6.6 (6.4-8.9) g/dL Albumin 4.1 (3.5-5.7) g/dL Globulin 2.5 (2.4-3.5) g/dL Albumin/Globulin Ratio 1.6 (1.1-2.2) Lipase 37 (11-82) Units/L Urine Color Yellow (Yellow) Urine Clarity Clear (Clear) Urine pH 5.5 (5.0-8.0) pH Units Ur Specific [place] 1.025 (1.010-1.025) Urine Protein Negative (Neg-Trace) mg/dL Urine Glucose (UA) Normal (Normal) mg/dL Urine Ketones Trace H (Negative) mg/dL Urine Blood Trace H (Negative) Urine Nitrite Negative (Negative) Urine Bilirubin Negative (Negative) Urine Urobilinogen Normal (Normal) mg/dL Ur Leukocyte Esterase Negative (Negative) Urine Microscopic RBC 15-30 H (0-3) per hpf Urine Microscopic WBC 0-3 (0-3) per hpf Ur Squamous Epith Cells Moderate H (None-Few) per lpf Calcium Oxalate Crystal Present Urine Bacteria None Seen (None-Few) per hpf Hyaline Casts None Seen (None-Few) per lpf Ur Culture Indicated? NO (NO) - Radiology Data Radiology results reviewed: Yes I reviewed the patient's radiology results.
[2019-07-06] MEDS ORDERED: *HR* Dextrose 50 % in Water (Syg) 50 ML SYRINGE IVP PRN (20:03)
[2019-07-06] MEDS ORDERED: *HR* LORazepam 2 MG/ML VIAL IVP PRN (20:03)
[2019-07-06] MEDS ORDERED: Dextrose Gel 15 GM/37.5 ML TUBE PO PRN ×2 (20:03)
[2019-07-06] MEDS ORDERED: Naloxone 0.4 MG/ML INJ IVP PRN ×2 (20:03)
[2019-07-06] MEDS ORDERED: D5% in Water 1,000 ML IVC PRN (20:03)
[2019-07-06] MEDS ORDERED: Ondansetron ODT 4 MG TAB.RAPDIS SL PRN (20:03)
[2019-07-06] MEDS ORDERED: *HR* HYDROcodone/Acet 10/325 mg TABLET PO PRN (20:35)
[2019-07-06] MEDS ORDERED: *HR* LORazepam 1 MG TABLET PO PRN (20:35)
[2019-07-06] MEDS ORDERED: Nicotine 2 MG GUM BC PRN (20:36)
--- NOTE | 2019-07-06 20:45 | Internal Med History&Physical ---
Date of Encounter: 07/07/19 Time of Encounter: 20:37 Internal Medicine - H&P: HPI Chief complaint: abdominal pain Admitted From: Home Plans for Post Hospital Care: Home History of present illness: Mr. Moon is a 54 year old male with past medical history of metastatic adenocarcinoma of the left lung on chemotherapy twice a day, right IJ DVT diagnosed 10/2018 provoked after port insertion on Xeralto presented to the ED for abdominal pain. [id number] encounter at 8: 10 PM Patient yesterday ate chipotle and then went to bed. In the morning was working in the garage when a sudden onset left abdominal epigastric pain radiating to the sides occurred described as sharp 06/28, exacerbated with coughing, and no alleviating factor. No association of fever, chills or chest pain, shortness of breath, diarrhea or dysuria. Patient reported nausea and one time vomiting in the morning and has not had any oral intake since yesterday. Reviewed patient's past medical, surgical, family and social history. Patient remains drinking at least 6 beers per day and daily smoker. CODE STATUS remains full code. Past Med Surg Social Fam HX - Past Medical History Medical history: arthritis, cancer, DVT, GERD, hypertension, malignancy, osteoporosis, other Additional medical history: stage 4 lung cancer, brain aneurysm Psychiatric history: anxiety, depression, other - Past Surgical History Surgical History: arthroscopy, orthopedic, other, other Additional surgical history: left knee sx - Social History Smoking Status: Current every day smoker Smokeless Tobacco Status: No Alcohol use: heavy Drug use: marijuana - Family History Mother Adopted: No Family Member Ethnicity: Non- Living Status: Still Living Hx Family Cardiac Disorders: Yes Hx Family Respiratory Disorders: No Hx Family Cancer: No Hx Family GI Disorders: No Hx Family Endocrine Disorder: No Hx Family Neuromuscular Disorders: No Hx Family Neurologic Disorders: No Hx Family HEENT Disorders: No Hx Family Autoimmune Disorders: No Father Adopted: No Family Member Ethnicity: Non- Living Status: Still Living Hx Family Cardiac Disorders: Yes (HTN) Hx Family Respiratory Disorders: No Hx Family Cancer: Yes Hx Family GI Disorders: No Hx Family Endocrine Disorder: No Hx Family Neuromuscular Disorders: No Hx Family Neurologic Disorders: No Hx Family HEENT Disorders: No Hx Family Autoimmune Disorders: No Brother Adopted: No Family Member Ethnicity: Non- Living Status: Hx Family Cardiac Disorders: Yes Hx Family Respiratory Disorders: No Hx Family Cancer: Yes Hx Family GI Disorders: No Hx Family Endocrine Disorder: No Hx Family Neuromuscular Disorders: No Hx Family Neurologic Disorders: No Hx Family HEENT Disorders: No Hx Family Autoimmune Disorders: No Internal Medicine - H&P: Meds Alectinib HCl [Alecensa] 600 mg PO BIDWM 07/06/19 [History] Aripiprazole [Abilify] 5 mg PO DAILY 07/06/19 [History] Folic Acid 1 mg PO DAILY 07/06/19 [History] Hydrocodone/Acetaminophen [[place] 10-325 Tablet] 1 each PO Q6H PRN 07/06/19 [History] LORazepam [Ativan] 1 mg PO Q6H PRN 07/06/19 [History] Omeprazole [PriLOSEC] 20 mg PO BIDAC 07/06/19 [History] Rivaroxaban [Xarelto] 20 mg PO DAILY 07/06/19 [History] Sertraline [Zoloft] 150 mg PO DAILY 07/06/19 [History] amLODIPine [Norvasc] 5 mg PO DAILY 07/06/19 [History] Allergy/AdvReac Type Severity Reaction Status Date / Time benazepril Allergy Anaphylaxis Verified 04/07/19 14:16 meloxicam Allergy Anaphylaxis Verified 04/07/19 14:16 All Systems PM: A 10-system review of systems was performed and is negative for pertinent findings except as documented above in the HPI. Review of systems: General: + unintentional weightloss, No fever Head: No headahce, No injury. Ears: No discharge, No earache Eyes: No drainage, No eye pain Mouth and Throat: No new ulcers, No pain Nose and Sinus: No new congestion, No pain, Respiratory: No cough, No sputum production, No dyspnea Cardiovascular: No chest pain, No palpitations. Gastrointestinal: + nausea, + vomiting.+ abdominal pain. Genital Tract: No discharge, No pain Urinary Tract: No dysuria, No discharge. MSK: No new/worsening joint pain, No new/worsening muscle ache. Endocrine: No cold intolerance, No polyuria Psychological: No suicidal, No homocidal ideation. - Constitutional Vitals: Temp Pulse Resp BP Pulse Ox 97.6 F 62 16 145/83 96 07/06/19 20:06 07/06/19 20:06 07/06/19 20:06 07/06/19 20:06 07/06/19 20:06 Exam: General Appearance: Appearing as age, well-nourished in mild acute distress. Head: Atraumatic normocephalic Skin: Normal texture, delayed dry turgor, warm. dy mucous membranes Eyes: Conjunctivae pale with no erythema, drainage, or ulcers. Anicteric. Neck: No Lymphadenopathy in the anterior/posterior cervical chain. No thyromegaly, masses or ulcers. Trachea midline. Heart: RRR, Capillary refill 6 seconds Lungs: No accessory muscle usage, lungs clear to auscultation bilaterally, no wheezes or crackles. Extremities: No pitting edema, No clubbing, No cyanosis. Abdomen: Non-distended, normoactive bowel sounds. non-tender to palpation, no hepatomegally. No guarding. Neuro: AOx3 with no new sensory loss or focal deficits. MSK: Strength 5/5 Upper extremity equal bilaterally. Strength 5/5 Lower extremity equal bilaterally Internal Med - H&P Results - Labs CBC & Chem 7: 07/07/19 02:20 07/07/19 02:20 Labs: Short CBC 07/06/19 Range/Units 14:33 WBC 8.8 (4.3-11.1) K/mcL Hgb 14.0 (12.9-16.9) g/dL Hct 37.8 (37.5-50.1) % Plt Count 106 L (140-400) K/mcL Neutrophils # 5.7 (1.6-8.9) K/mcL BMP 07/06/19 14:33 Sodium 139 Potassium 3.3 L Chloride 105 Carbon Dioxide 29 BUN 13 Creatinine 0.60 L Glucose 131 H Calcium 8.8 Liver Function 07/06/19 Range/Units 14:33 Total Bilirubin 0.7 (0.3-1.0) mg/dL Direct Bilirubin 0.2 (0.0-0.2) mg/dL AST 35 (13-39) Units/L ALT 28 (7-52) Units/L Alkaline Phosphatase 89 (34-104) Units/L Albumin 4.1 (3.5-5.7) g/dL Urine 07/06/19 Range/Units 14:40 Urine Color Yellow (Yellow) Urine Clarity Clear (Clear) Urine pH 5.5 (5.0-8.0) pH Units Ur Specific [place] 1.025 (1.010-1.025) Urine Protein Negative (Neg-Trace) mg/dL Urine Glucose (UA) Normal (Normal) mg/dL - Impressions ITS Impressions Abdomen/Pelvis CT 07/06/19 17:26 IMPRESSION: 1. Increase in size of pancreatic tail cystic lesion now 2.6 x 3.5 cm, previous 2.0 x 2.6 cm. Given history of pancreatitis, this is likely a pseudocyst. A 1.1 cm pancreatic head/uncinate process hypodense nodule mentioned on prior is visualized but less distinct due to lack of IV contrast. It appears to be stable. This could also be of similar etiology. Suggest three-month follow-up. 2. Inflammatory changes in the left upper quadrant manifested by stranding and some free fluid adjacent to pancreatic tail/gastric fundal/spleen likely related to the pancreatitis. The adjacent greater curvature/gastric fundus demonstrates quite pronounced submucosal edema and thickening similar to the previous exam but less defined due to lack of IV contrast. Likely reactive gastritis. Review on follow-up studies. 3. No evidence for bowel obstruction. D/ / Paul Pickard MD / Paul Pickard MD Interpreting Provider: Paul Pickard MD - Summary of Assessment and Plan Summary of Assessment and Plan: 1.Acute abdominal pain: Etiology likely a combination of gastritis and Pancreatitis. Zofran for nausea, advance diet to clear liquid as tolerated. Aggressive IVF with strict I's and O's urine output goal > 50ml/hr. Lipid panel, ultrasound gallbladder pending Surgery consultation 2.Acute pancreatitis: Etiology alcohol(daily intake), or gallbladder(association with food) Anastasia score 0. Management as above with surgery consultation for cholecystectomy. Oncology consultation due to further recommendations and possible additional procedures while planning for cholecystectomy. 3.Acute gastritis: No symptoms of dysphagia, denied NSAID intake. PPI BID Surgery consultation for possible EGD 4.History of alcohol abuse: [facility] protocol 5.Thrombocytopenia with Microcytosis: Anemia panel ordered 6.Hypokalemia: Replace 7.Hyperglycemia: A1c DVT prophylaxis: On systemic anticoagulation Disposition: Likely less than 2 day stay - Time Spent With Patient Total time spent is greater than 37 minutes 50% in coordination of care (as documented) at patient's floor/unit and/or counseling patient: Greater than 35 minutes
[2019-07-06] MEDS ORDERED: Potassium Chloride Elixir 20 MEQ/15 ML UDC PO ONE (20:55)
[2019-07-06 20:59] LABS: Estimated Average Glucose 137 mg/dl
[2019-07-06 21:07] LABS: Chol/HDL Ratio 1.8 (0-4.9)
[2019-07-06] MEDS: *HR* Heparin 5,000 UNIT/ML VIAL SQ SCH (21:17)
[2019-07-06] MEDS: [UNRECOGNIZED DRUG - OTHER] PO SCH (21:17)
[2019-07-06] MEDS: Nicotine 14 MG PATCH.TD24 TD SCH (22:17)
[2019-07-06] MEDS: Multivit/Ca/Min/Fe/FA 1 TAB TABLET PO SCH (22:18)
[2019-07-06] MEDS: Folic Acid 1 MG TABLET PO SCH (22:18)
[2019-07-06] MEDS: Thiamine (B-1) 100 MG TABLET PO SCH (22:18)
[2019-07-06] MEDS: Ringers Solution, Lactated 1,000 ML IVC SCH (22:42)
[2019-07-07] MEDS: Ringers Solution, Lactated 1,000 ML IVC SCH ×3 (01:43→09:48)
[2019-07-07 02:54] LABS: Retculocyte # 0.03 M/mcL (0.05-0.10); Reticulocyte % 0.7 % (1.6-2.8)
[2019-07-07 02:59] LABS: INR 1.2; Prothrombin Time 13.9 Seconds (9.4-12.1)
[2019-07-07 03:11] LABS: Alanine Aminotransferase 20 Units/L (7-52); Albumin 3.3 g/dL (3.5-5.7); Albumin/Globulin Ratio 1.6 (1.1-2.2); Alkaline Phosphatase 79 Units/L (34-104); Aspartate Amino Transferase 24 Units/L (13-39); BUN/Creatinine Ratio 17 (6-26); Bilirubin,Total 0.7 mg/dL (0.3-1.0); Blood Urea Nitrogen 10 mg/dL (6-20); Carbon Dioxide 29 mEq/L (23-29); Chloride 106 mEq/L (98-107); Globulin 2.1 g/dL (2.4-3.5); Glucose 106 mg/dL (70-105); Magnesium 1.8 mg/dL (1.6-2.6); Osmolality,Calculated 287 (280-300); Phosphorous 2.9 mg/dL (2.7-4.5); Potassium 3.8 mEq/L (3.5-5.1); Sodium 139 mEq/L (136-145); Total Protein 5.4 g/dL (6.4-8.9); eGFR For African Americans > 60 (> 60); eGFR For Non-African Americans > 60 (> 60)
[2019-07-07 03:14] LABS: % Iron Saturation 9 % (20-55); Iron 30 mcg/dL (65-175); Transferrin 237 mg/dL (203-362)
[2019-07-07 03:30] LABS: Ferritin 184 ng/mL (20-250)
[2019-07-07 03:45] LABS: Basophils % 0.4 %; Eosinophils # 0.1 K/mcL (0.0-0.6); Eosinophils % 0.7 %; Hematocrit 35.1 % (37.5-50.1); Hemoglobin 12.7 g/dL (12.9-16.9); Immature Granulocytes % 0.1 % (0-4); Immature Platelets 15.5 % (1.1-6.1); Lymphocytes # 2.7 K/mcL (0.6-4.6); Lymphocytes % 39.8 %; Mean Corpuscular HGB Conc 36.2 g/dL (31.6-35.5); Mean Corpuscular Hemoglobin 27.7 pg (28.0-33.3); Mean Corpuscular Volume 76.5 fL (83.0-100.0); Monocytes # 0.6 K/mcL (0.0-1.3); Monocytes % 9.4 %; Neutrophils # 3.4 K/mcL (1.6-8.9); Platelet Count 100 K/mcL (140-400); Red Blood Count 4.59 M/mcL (4.19-5.50); Red Cell Distribution Width 14.7 % (11.5-14.5); Segmented Neutrophils % 49.6 %; White Blood Count 6.8 K/mcL (4.3-11.1)
[2019-07-07] MEDS: *HR* Heparin 5,000 UNIT/ML VIAL SQ SCH (05:34)
[2019-07-07] MEDS ORDERED: Pantoprazole 40 MG VIAL IVP SCH (06:00)
[2019-07-07 07:14] VITALS: BP 112/70
[2019-07-07] MEDS ORDERED: Insulin LISPRO 300 UNITS/3 ML VIAL SQ SCH (07:30)
[2019-07-07] MEDS ORDERED: ARIPiprazole 5 MG TABLET PO SCH (09:00)
[2019-07-07] MEDS ORDERED: *HR* Rivaroxaban 10 MG TABLET PO SCH (09:00)
[2019-07-07] MEDS: Thiamine (B-1) 100 MG TABLET PO SCH (09:07)
[2019-07-07] MEDS: Nicotine 14 MG PATCH.TD24 TD SCH (09:07)
[2019-07-07] MEDS: Multivit/Ca/Min/Fe/FA 1 TAB TABLET PO SCH (09:08)
[2019-07-07] MEDS: Folic Acid 1 MG TABLET PO SCH (09:08)
[2019-07-07] MEDS: [UNRECOGNIZED DRUG - OTHER] PO SCH (10:15)
--- NOTE | 2019-07-07 10:52 | AcuteCare Surgery Consult Note ---
Date of Encounter: 07/07/19 Time of Encounter: 08:00 History of Present Illness Consult date: 07/07/19 Reason for consult: abdominal pain Requesting physician: Tigre Moreno History of present illness: This 54 y/o male with hx of recurrent pancreatitis is admitted to [facility]) with severe LUQ abdominal pain. He is diagnosed with pancreatic pseudocyst that is enlarged since the last CT scan. He feels better today after the initiation of medical therapy. He report LUQ abd pain is improved and he is hungry. +nausea and vomiting at time of admission but, none now. Past Med Surg Social Fam HX - Past Medical History Medical history: arthritis, cancer, DVT, GERD, hypertension, malignancy, osteoporosis, other Additional medical history: stage 4 lung cancer, brain aneurysm Psychiatric history: anxiety, depression, other - Past Surgical History Surgical History: arthroscopy, orthopedic, other, other Additional surgical history: left knee sx - Social History Smoking Status: Current every day smoker Smokeless Tobacco Status: No Alcohol use: heavy Drug use: marijuana - Family History Mother Adopted: No Family Member Ethnicity: Non- Living Status: Still Living Hx Family Cardiac Disorders: Yes Hx Family Respiratory Disorders: No Hx Family Cancer: No Hx Family GI Disorders: No Hx Family Endocrine Disorder: No Hx Family Neuromuscular Disorders: No Hx Family Neurologic Disorders: No Hx Family HEENT Disorders: No Hx Family Autoimmune Disorders: No Father Adopted: No Family Member Ethnicity: Non- Living Status: Still Living Hx Family Cardiac Disorders: Yes (HTN) Hx Family Respiratory Disorders: No Hx Family Cancer: Yes Hx Family GI Disorders: No Hx Family Endocrine Disorder: No Hx Family Neuromuscular Disorders: No Hx Family Neurologic Disorders: No Hx Family HEENT Disorders: No Hx Family Autoimmune Disorders: No Brother Adopted: No Family Member Ethnicity: Non- Living Status: Hx Family Cardiac Disorders: Yes Hx Family Respiratory Disorders: No Hx Family Cancer: Yes Hx Family GI Disorders: No Hx Family Endocrine Disorder: No Hx Family Neuromuscular Disorders: No Hx Family Neurologic Disorders: No Hx Family HEENT Disorders: No Hx Family Autoimmune Disorders: No Medications and Allergies Alectinib HCl [Alecensa] 600 mg PO BIDWM 07/06/19 [History] Aripiprazole [Abilify] 5 mg PO DAILY 07/06/19 [History] Folic Acid 1 mg PO DAILY 07/06/19 [History] Hydrocodone/Acetaminophen [[place] 10-325 Tablet] 1 each PO Q6H PRN 07/06/19 [History] LORazepam [Ativan] 1 mg PO Q6H PRN 07/06/19 [History] Omeprazole [PriLOSEC] 20 mg PO BIDAC 07/06/19 [History] Rivaroxaban [Xarelto] 20 mg PO DAILY 07/06/19 [History] Sertraline [Zoloft] 150 mg PO DAILY 07/06/19 [History] amLODIPine [Norvasc] 5 mg PO DAILY 07/06/19 [History] Allergy/AdvReac Type Severity Reaction Status Date / Time benazepril Allergy Anaphylaxis Verified 04/07/19 14:16 meloxicam Allergy Anaphylaxis Verified 04/07/19 14:16 Review of Systems All systems PM: The remainder of the systems were reviewed and are negative - Constitutional as per HPI, no anorexia, no chills, no fatigue, no fever(s), no weakness - EENT Nose, mouth and throat: dry mouth, no dysphagia, no nasal congestion, no nasal discharge, no sinus pain, no sinus pressure, no sore throat - Cardiovascular no chest pain, no diaphoresis, no dyspnea, no edema - Respiratory other (hx lung cancer), no cough, no dyspnea, no wheezing - Gastrointestinal abdominal pain, heartburn, nausea, vomiting, no bloating, no constipation, no dysphagia, no hematemesis - Genitourinary no flank pain - Musculoskeletal no back pain, no joint swelling, no limited range of motion, no neck pain - Integumentary no dry skin, no pruritus, no rash, no wounds, no jaundice - Neurological no confusion, no dizziness, no focal weakness, no weakness - Psychiatric no anxiety, no depression - Endocrine no fatigue - Hematologic/Lymphatic no easy bleeding, no easy bruising General Surgery Exam Initial Vital Signs Temp Pulse Resp BP Pulse Ox 97.1 F L 69 18 151/82 97 07/06/19 14:05 07/06/19 14:05 07/06/19 14:05 07/06/19 14:05 07/06/19 14:05 - General physical appearance no distress, no pain. negative: jaundice - Eyes PERRL, normal ocular movement. negative: icteric - ENT normal mucosa, no congestion - Neck no masses, trachea midline, no lymphadectomy, no venous distension - Respiratory rales: left (hx lung cancer) - Cardiovascular Cardiovascular exam: Present: RRR. Absent: JVD - Abdomen Abdomen general surgery: Present: bowel sounds present, soft, tender Abdominal Tenderness: Present: LUQ - Genitourinary Present: normal penis with no external lesions - Integumentary Integumentary general surgery: Present: warm and dry - Neurologic Present: CN 2-12 grossly intact, normal coordination - Musculoskeletal Present: normal gait, normal posture - Psychiatric Psychiatric general surgery: Present: A&Ox3, appropriate Exam Initial Vital Signs Temp Pulse Resp BP Pulse Ox 97.1 F L 69 18 151/82 97 07/06/19 14:05 07/06/19 14:05 07/06/19 14:05 07/06/19 14:05 07/06/19 14:05 Results - Labs 07/07/19 02:20 07/07/19 02:20 Abnormal lab results Hgb 12.7 g/dL (12.9-16.9) L 07/07/19 02:20 Hct 35.1 % (37.5-50.1) L 07/07/19 02:20 MCV 76.5 fL (83.0-100.0) L 07/07/19 02:20 MCH 27.7 pg (28.0-33.3) L 07/07/19 02:20 MCHC 36.2 g/dL (31.6-35.5) H 07/07/19 02:20 RDW 14.7 % (11.5-14.5) H 07/07/19 02:20 Plt Count 100 K/mcL (140-400) L 07/07/19 02:20 Reticulocyte # 0.03 M/mcL (0.05-0.10) L 07/07/19 02:20 Platelet Estimate Slight Decrease (Normal) L 07/06/19 14:33 Immature Plt Fraction 15.5 % (1.1-6.1) H 07/07/19 02:20 Percent Retic 0.7 % (1.6-2.8) L 07/07/19 02:20 Immature Retic Fraction 5.0 % (11.0-38.0) L 07/07/19 02:20 PT 13.9 Seconds (9.4-12.1) H 07/07/19 02:20 Potassium 3.3 mEq/L (3.5-5.1) L 07/06/19 14:33 Creatinine 0.58 mg/dL (0.70-1.30) L 07/07/19 02:20 Glucose 106 mg/dL (70-105) H 07/07/19 02:20 Hemoglobin A1c 6.4 % (-5.6) H 07/06/19 20:35 Calcium 8.0 mg/dL (8.6-10.3) L 07/07/19 02:20 Iron 30 mcg/dL (65-175) L 07/07/19 02:20 % Saturation 9 % (20-55) L 07/07/19 02:20 Serum Total Protein 5.4 g/dL (6.4-8.9) L 07/07/19 02:20 Albumin 3.3 g/dL (3.5-5.7) L 07/07/19 02:20 Globulin 2.1 g/dL (2.4-3.5) L 07/07/19 02:20 HDL Cholesterol 89 mg/dL (40-59) H 07/06/19 20:35 Urine Ketones Trace mg/dL (Negative) H 07/06/19 14:40 Urine Blood Trace (Negative) H 07/06/19 14:40 Urine Microscopic RBC 15-30 per hpf (0-3) H 07/06/19 14:40 Ur Squamous Epith Cells Moderate per lpf (None-Few) H 07/06/19 14:40 Diabetes panel 07/06/19 07/06/19 07/06/19 Range/Units 14:33 20:35 20:35 Sodium 139 (136-145) mEq/L Potassium 3.3 L (3.5-5.1) mEq/L Chloride 105 (98-107) mEq/L Carbon Dioxide 29 (23-29) mEq/L BUN 13 (6-20) mg/dL Creatinine 0.60 L (0.70-1.30) mg/dL Glucose 131 H (70-105) mg/dL Hemoglobin A1c 6.4 H ( - 5.6) % Calcium 8.8 (8.6-10.3) mg/dL AST 35 (13-39) Units/L ALT 28 (7-52) Units/L Alkaline Phosphatase 89 (34-104) Units/L Albumin 4.1 (3.5-5.7) g/dL Triglycerides 44 (< 150) mg/dL HDL Cholesterol 89 H (40-59) mg/dL 07/07/19 Range/Units 02:20 Sodium 139 (136-145) mEq/L Potassium 3.8 (3.5-5.1) mEq/L Chloride 106 (98-107) mEq/L Carbon Dioxide 29 (23-29) mEq/L BUN 10 (6-20) mg/dL Creatinine 0.58 L (0.70-1.30) mg/dL Glucose 106 H (70-105) mg/dL Hemoglobin A1c ( - 5.6) % Calcium 8.0 L (8.6-10.3) mg/dL AST 24 (13-39) Units/L ALT 20 (7-52) Units/L Alkaline Phosphatase 79 (34-104) Units/L Albumin 3.3 L (3.5-5.7) g/dL Triglycerides (< 150) mg/dL HDL Cholesterol (40-59) mg/dL Calcium panel 07/06/19 07/07/19 Range/Units 14:33 02:20 Calcium 8.8 8.0 L (8.6-10.3) mg/dL Phosphorus 2.9 (2.7-4.5) mg/dL Albumin 4.1 3.3 L (3.5-5.7) g/dL Pituitary panel 07/06/19 07/07/19 Range/Units 14:33 02:20 Sodium 139 139 (136-145) mEq/L Potassium 3.3 L 3.8 (3.5-5.1) mEq/L Chloride 105 106 (98-107) mEq/L Carbon Dioxide 29 29 (23-29) mEq/L BUN 13 10 (6-20) mg/dL Creatinine 0.60 L 0.58 L (0.70-1.30) mg/dL Glucose 131 H 106 H (70-105) mg/dL Calcium 8.8 8.0 L (8.6-10.3) mg/dL Adrenal panel 07/06/19 07/07/19 Range/Units 14:33 02:20 Sodium 139 139 (136-145) mEq/L Potassium 3.3 L 3.8 (3.5-5.1) mEq/L Chloride 105 106 (98-107) mEq/L Carbon Dioxide 29 29 (23-29) mEq/L BUN 13 10 (6-20) mg/dL Creatinine 0.60 L 0.58 L (0.70-1.30) mg/dL Glucose 131 H 106 H (70-105) mg/dL Calcium 8.8 8.0 L (8.6-10.3) mg/dL Total Bilirubin 0.7 0.7 (0.3-1.0) mg/dL AST 35 24 (13-39) Units/L ALT 28 20 (7-52) Units/L Alkaline Phosphatase 89 79 (34-104) Units/L Albumin 4.1 3.3 L (3.5-5.7) g/dL All other labs normal. - Imaging CT scan - abdomen: image reviewed (Redemonstration of cystic pancreatic tail lesion now measuring 2.6 x 3.5 cm previously reported at 2.0 x 2.6 cm. The 1.1 cm pancreatic head/uncinate process hypodense nodule appears to be stable. Normal GB) CT scan - pelvis: image reviewed Consult Discharge Plan - Plan Referrals: Ivana Weston, ELECTROENCEPHALOGRAPHIC TECHNOLOGIST [Primary Care Provider] -
--- NOTE | 2019-07-07 11:08 | Discharge Summary ---
- NOTES TO OUTPATIENT PROVIDER Notes to Outpatient Provider: f/u with PCP in one week. f/u with GI in 1-2 weeks. f/u with Heme Onc as scheduled before. Please quit drinking alcohol. Date of Encounter: 07/07/19 Time of Encounter: 11:06 - Discharge Diagnosis (1) Pancreatitis, alcoholic, acute Priority: Primary Status: Acute Qualifiers: Acute pancreatitis complication: no infection or necrosis Qualified Code(s): K85.20 - Alcohol induced acute pancreatitis without necrosis or infection (2) Alcohol abuse Priority: Primary Status: Chronic (3) Pancreatic pseudocyst Priority: Secondary Status: Acute (4) GERD (gastroesophageal reflux disease) Priority: Secondary Status: Acute Qualifiers: Esophagitis presence: esophagitis presence not specified Qualified Code(s): K21.9 - Gastro-esophageal reflux disease without esophagitis (5) Adenocarcinoma of lung Priority: Secondary Status: Chronic Qualifiers: Laterality: left Qualified Code(s): C34.92 - Malignant neoplasm of unspecified part of left bronchus or lung (6) COPD (chronic obstructive pulmonary disease) with emphysema Priority: Secondary Status: Chronic Qualifiers: Emphysema type: panlobular Qualified Code(s): J43.1 - Panlobular emphysema (7) History of DVT (deep vein thrombosis) Priority: Secondary Status: Chronic (8) History of anxiety Priority: Secondary Status: Chronic (9) Nicotine dependence with nicotine-induced disorder Priority: Secondary Status: Chronic Qualifiers: Nicotine product type: cigarettes Qualified Code(s): F17.219 - Nicotine dependence, cigarettes, with unspecified nicotine-induced disorders Hospital course: Mr. Moon is a 54 year old male with past medical history of metastatic adenocarcinoma of the left lung on chemotherapy twice a day, right IJ DVT diagnosed 10/2018 provoked after port insertion on Xeralto for anti coag, chronic tobacco dependence, COPD, chronic pancreatitis and chronic alcohol dependence patient presented to the ED for abdominal pain. Yesterday he ate at [employer] and then went to bed. In the morning was working in the garage when a sudden onset left abdominal epigastric pain radiating to the sides occurred described as sharp 9/10, exacerbated with coughing, and no alleviating factor. No association of fever, chills or chest pain, shortness of breath, diarrhea or dysuria. Patient remains drinking at least 6 beers per day and daily smoker. He was admitted in the hospital and started him on aggressive IV hydration. Also start him on symptomatic and supportive care with PRN pain medication and anti emetics. His US of abd showed unremarkable gallbladder. Pt was evaluated by surgery, who did not recommend any further interventions now. His CT of Abd and Pelvis showed a small pseudo cyst in the tail of pancreas. He was evaluated by GI, who did not recommend any interventions now. We advances diet and he is tolerating oral intake well. So will discharge him home in a stable condition today. Recommend him to follow up with the G.I. and PCP as an out pt. - Time Spent with Patient Total time spent providing and/or coordinating discharge services: - Discharge Medications Prescriptions: Continued Sertraline [Zoloft] 150 mg PO DAILY Omeprazole [PriLOSEC] 20 mg PO BIDAC LORazepam [Ativan] 1 mg PO Q6H PRN PRN Reason: Anxiety Folic Acid 1 mg PO DAILY Aripiprazole [Abilify] 5 mg PO DAILY Rivaroxaban [Xarelto] 20 mg PO DAILY amLODIPine [Norvasc] 5 mg PO DAILY Alectinib HCl [Alecensa] 600 mg PO BIDWM Hydrocodone/Acetaminophen [[place] 10-325 Tablet] 1 each PO Q6H PRN PRN Reason: Pain Home Medications: Alectinib HCl [Alecensa] 600 mg PO BIDWM 07/06/19 [History] Aripiprazole [Abilify] 5 mg PO DAILY 07/06/19 [History] Folic Acid 1 mg PO DAILY 07/06/19 [History] Hydrocodone/Acetaminophen [[place] 10-325 Tablet] 1 each PO Q6H PRN 07/06/19 [History] LORazepam [Ativan] 1 mg PO Q6H PRN 07/06/19 [History] Omeprazole [PriLOSEC] 20 mg PO BIDAC 07/06/19 [History] Rivaroxaban [Xarelto] 20 mg PO DAILY 07/06/19 [History] Sertraline [Zoloft] 150 mg PO DAILY 07/06/19 [History] amLODIPine [Norvasc] 5 mg PO DAILY 07/06/19 [History] Allergies/Adverse Reactions: Allergy/AdvReac Type Severity Reaction Status Date / Time benazepril Allergy Anaphylaxis Verified 04/07/19 14:16 meloxicam Allergy Anaphylaxis Verified 04/07/19 14:16 Date of admission: 07/06/19 18:57 Primary care physician: Ivana Weston CNP Consults: 07/07/19 06:00 Consult to Oncology Hematology [CONS] Routine Consulting Provider: Noel Fox Jr Reason for Consult: metastatic adenocarcinoma ALK, PDL1 mutation, psuedocyst enlarging.. REcommendations if the patient needs further procedure. Cholecystectomy planned Call Completed: No Consult to Surgery [CONS] Routine Consulting Provider: [facility] Reason for Consult: Cholecystectomy, also pseudocyst. Call Completed: No 07/07/19 09:40 Consult to Gastroenterology [CONS] Routine Consulting Provider: [facility] Reason for Consult: Acute pancreatitis with pseudocyst Time Notified: 09:41 Call Completed: Yes - Constitutional Vitals: Temp Pulse Resp BP Pulse Ox 98.2 F 59 15 112/70 97 07/07/19 07:07 07/07/19 07:07 07/07/19 07:07 07/07/19 07:07 07/07/19 07:07 General appearance: Present: A&O X 3, no acute distress, answers questions appropriately Exam: a - Head Head exam: Present: atraumatic, normal inspection - Neck Neck exam general surgery: Present: supple - Respiratory Respiratory exam: Present: decreased breath sounds. Absent: rales, respiratory distress, rhonchi, wheezes - Cardiovascular Cardiovascular exam: Present: RRR, +S1, +S2. Absent: tachycardia - GI/Abdominal GI/Abdominal exam: Present: normal bowel sounds, soft. Absent: guarding, rebound, rigid, tenderness - Extremities Exam Extremities exam: Present: normal inspection. Absent: calf tenderness, pedal edema, tenderness - Back Exam Back exam: Absent: CVA tenderness (L), CVA tenderness (R) - Neurological Exam Neurological exam: Present: alert, oriented X3 - Psychiatric Psychiatric exam: Present: normal affect, normal mood - Patient Status Disposition: Home, Self-Care Condition: Good Overall status at discharge: patient is back to baseline - Discharge Instructions Follow Up With: Ivana Weston CNP [Primary Care Provider] - Cesilia White MD [Partnered Physician] - - Diet and Activity Activity: increase activity as tolerated Diet: low salt diet
--- NOTE | 2019-07-07 11:32 | Gastroenterology Consult Note ---
Date of Encounter: 07/07/19 Time of Encounter: 10:20 - Assessment and plan (1) Pancreatitis Current Visit: No Status: Acute Assessment and plan: Patient drinks 6-[address] A/P showed increase in size of pancreatic tail cystic lesion now 2.6 x 3.5 cm, previous 2.0 x 2.6 cm, 1.1 cm pancreatic head/uncinate process hypodense nodule mentioned on prior is visualized but less distinct due to lack of IV contrast, inflammatory changes in the left upper quadrant manifested by stranding and some free fluid adjacent to pancreatic tail/gastric fundal/spleen likely related to the pancreatitis. RUQ US with heterogeneous appearance of the pancreas with small probable pseudocyst, gallbladder unremarkable. Agree with IV fluids. Recommend NO alcohol consumption. Continue PPI. Repeat CT in 3 months. Slowly advance PO intake as tolerated. Continue anti-emetics PRN. Follow up with Dr. White in 2-3 months. Qualifiers: Chronicity: chronic Pancreatitis type: alcohol induced Qualified Code(s): K86.0 - Alcohol-induced chronic pancreatitis (2) Pancreatic pseudocyst Current Visit: Yes Status: Acute Assessment and plan: As above. - Time Spent With Patient Total time spent is greater than 50% in coordination of care (as documented) at patient's floor/unit and/or counseling patient: GI History of Present Illness - Data of Consult Patient: new to practice Consult date: 07/07/19 Requesting Physician: Sridhar Cano MD - Consult Narrative Reason for consult: Pancreatitis History of present illness: Mr. Moon is a 54 year old male with PMHx of metastatic adenocarcinoma of the left lung on chemotherapy twice a day, right IJ DVT diagnosed 10/2018 provoked after port insertion on Xeralto, alcohol abuse (6-8 beers per day), DVT, HTN who presented to the ED with complaints of abdominal pain. CT A/P shows enlarging pseudocyst. RUQ US with heterogeneous appearance of the pancreas with small probable pseudocyst, gallbladder unremarkable. He reported nausea but denied vomiting at time of admission. He currently denies abdominal pain, nausea, or vomiting. He ate breakfast this AM without difficulty. Procedures: None NSAIDs: None Anticoagulation: Xarelto Past Med Surg Social Fam HX - Past Medical History Medical history: arthritis, cancer, DVT, GERD, hypertension, malignancy, osteoporosis, other Additional medical history: stage 4 lung cancer, brain aneurysm Psychiatric history: anxiety, depression, other - Past Surgical History Surgical History: arthroscopy, orthopedic, other, other Additional surgical history: left knee sx - Social History Smoking Status: Current every day smoker Smokeless Tobacco Status: No Alcohol use: heavy Drug use: marijuana - Family History Mother Adopted: No Family Member Ethnicity: Non- Living Status: Still Living Hx Family Cardiac Disorders: Yes Hx Family Respiratory Disorders: No Hx Family Cancer: No Hx Family GI Disorders: No Hx Family Endocrine Disorder: No Hx Family Neuromuscular Disorders: No Hx Family Neurologic Disorders: No Hx Family HEENT Disorders: No Hx Family Autoimmune Disorders: No Father Adopted: No Family Member Ethnicity: Non- Living Status: Still Living Hx Family Cardiac Disorders: Yes (HTN) Hx Family Respiratory Disorders: No Hx Family Cancer: Yes Hx Family GI Disorders: No Hx Family Endocrine Disorder: No Hx Family Neuromuscular Disorders: No Hx Family Neurologic Disorders: No Hx Family HEENT Disorders: No Hx Family Autoimmune Disorders: No Brother Adopted: No Family Member Ethnicity: Non- Living Status: Hx Family Cardiac Disorders: Yes Hx Family Respiratory Disorders: No Hx Family Cancer: Yes Hx Family GI Disorders: No Hx Family Endocrine Disorder: No Hx Family Neuromuscular Disorders: No Hx Family Neurologic Disorders: No Hx Family HEENT Disorders: No Hx Family Autoimmune Disorders: No - Gastrointestinal Gastrointestinal: Present: as per HPI - Constitutional Constitutional: as per HPI - EENT Eyes: as per HPI Ears: Present: as per HPI Nose, mouth and throat: Present: as per HPI - Cardiovascular Cardiovascular ROS: Present: as per HPI - Respiratory Respiratory IM: Present: as per HPI - Genitourinary Genitourinary: Absent: change in color, Urinary frequency - Neurological ROS Neurological GI: Present: as per HPI - Hematologic/Lymphatic Hematologic/Lymphatic pediatric: Present: as per HPI - Musculoskeletal Musculoskeletal ROS GI: Present: as per HPI - Integumentary Integumentary GI: Present: as per HPI - Psychiatric ROS Psychiatric GI: Present: as per HPI - Endocrine Endocrine IM: Present: as per HPI - Constitutional Vitals: Temp Pulse Resp BP Pulse Ox 98.2 F 59 15 112/70 97 07/07/19 07:07 07/07/19 07:07 07/07/19 07:07 07/07/19 07:07 07/07/19 07:07 General appearance: Present: cooperative, A&O X 3, no acute distress, answers questions appropriately - Head Head exam: Present: atraumatic, normocephalic - Eye Eye exam: Present: normal appearance, sclera anicteric - ENT ENT exam: Present: mucous membranes moist - Neck Neck exam general surgery: Present: normal inspection, trachea midline - Respiratory Respiratory exam: Present: decreased breath sounds, CTAB. Absent: rales, rhonchi - Cardiovascular Cardiovascular exam: Present: RRR, +S1, +S2 - GI/Abdominal GI/Abdominal exam: Present: normal bowel sounds, soft, no peritoneal signs. Absent: distended, firm, guarding, tenderness - Rectal Rectal exam: Present: deferred - Extremities Exam Extremities exam: Present: warm - Neurological Exam Neurological exam: Present: no focal deficits - Psychiatric Psychiatric exam: Present: normal affect, normal mood - Skin Skin exam: Present: dry, intact, normal color, warm Results - Labs CBC & Chem 7: 07/07/19 02:20 07/07/19 02:20 Labs: Last Result 07/07/19 07/07/19 07/07/19 02:20 02:20 02:20 Calcium 8.0 L Iron % Saturation Transferrin Ferritin Troponin I < 0.03 Vitamin B12 412 07/07/19 02:20 Calcium Iron 30 L % Saturation 9 L Transferrin 237 Ferritin 184 Troponin I Vitamin B12 Entire Visit 07/07/19 07/07/19 07/07/19 02:20 02:20 02:20 Hgb 12.7 L Hct 35.1 L PT 13.9 H Ferritin Total Bilirubin 0.7 AST 24 ALT 20 07/07/19 02:20 Hgb Hct PT Ferritin 184 Total Bilirubin AST ALT - ABG ABG results: PT/INR, D-dimer PT 13.9 Seconds (9.4-12.1) H 07/07/19 02:20 - Impressions Impressions Abdomen/Pelvis CT 07/06/19 17:26 IMPRESSION: 1. Increase in size of pancreatic tail cystic lesion now 2.6 x 3.5 cm, previous 2.0 x 2.6 cm. Given history of pancreatitis, this is likely a pseudocyst. A 1.1 cm pancreatic head/uncinate process hypodense nodule mentioned on prior is visualized but less distinct due to lack of IV contrast. It appears to be stable. This could also be of similar etiology. Suggest three-month follow-up. 2. Inflammatory changes in the left upper quadrant manifested by stranding and some free fluid adjacent to pancreatic tail/gastric fundal/spleen likely related to the pancreatitis. The adjacent greater curvature/gastric fundus demonstrates quite pronounced submucosal edema and thickening similar to the previous exam but less defined due to lack of IV contrast. Likely reactive gastritis. Review on follow-up studies. 3. No evidence for bowel obstruction. D/ / Paul Pickard MD / Paul Pickard MD Interpreting Provider: Paul Pickard MD Chest X-Ray 07/06/19 23:02 IMPRESSION: No cardiopulmonary or musculoskeletal findings to account for the patient's left rib pain. No pleural effusion. D/ / Chinedu Tillman / Chinedu Tillman Interpreting Provider: Chinedu Tillman Chest X-Ray 07/06/19 23:05 IMPRESSION: No layering pleural effusion is identified on right. D/ / Selvin Orr MD / Selvin Orr MD Interpreting Provider: Selvin Orr MD Abdomen Ultrasound 07/07/19 08:04 IMPRESSION: Heterogeneous appearance of the pancreas with small probable pseudocyst; this is poorly visualized. Please refer to prior CT comparisons. Gallbladder is unremarkable in appearance. Trace amount of ascites. D/ / 07/07/2019 08:12:06 Balbir Chaves MD / [facility] Interpreting Provider: Balbir Chaves MD Consult Discharge Plan - Plan Referrals: Ivana Weston, MARY ALICE [Primary Care Provider] - Cesilia White MD [Partnered Physician] -
== END 2019-07-07 12:06 | disposition home or self-care (01) ==
LOC: EMEROOARM 14:04 → 3BNU 14:04
PROVIDERS: ADMIT Internal Medicine; ATTEND Internal Medicine